=== PATIENT | male | born 1945 | race Caucasian/White ===

== ENCOUNTER 2022-10-06 20:36 | Emergency (ER) | payer BC, SELFPAY ==
--- NOTE | ~2022-10-06 | CT_ITS ---
EXAMINATION: CT HEAD WITHOUT CONTRAST CLINICAL INFORMATION: Dizziness. COMPARISON: None. TECHNIQUE: Contiguous axial imaging was performed from the skull base to vertex without intravenous administration of contrast. Coronal and sagittal reformatted images are performed at the CT scanner. [This CT examination was performed using dose optimization techniques as appropriate, variously including the following: *Automated exposure control *Adjustment of mA and/or kV according to patient size (this includes techniques or standardized protocols for targeted exams where dose is matched to indication/reason for exam; i.e. extremities or head) *Use of iterative reconstruction technique] DLP: 835 mGy-cm. FINDINGS: Focal encephalomalacia, hypodensity, consistent with old infarct in the right occipital lobe. Small lacunar infarct in left thalamus. There is no evidence of acute intracranial hemorrhage or acute change is territorial infarction. No abnormal mass-effect or midline shift is seen. Barcenas to white matter differentiation is well preserved. No extra-axial fluid collections are identified. The ventricles are normal in size. There is no abnormal attenuation within the brain parenchyma. There is no osseous abnormality. The mastoid air cells and visualized portions of the paranasal sinuses are well-aerated. CT/CT head/brain wo IV con IMPRESSION: No acute intracranial pathology.
[2022-10-06 20:45] VITALS: BP 167/67; PULSE 71; O2SAT 100
--- NOTE | 2022-10-06 20:47 | ED_ITS ---
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 Patient got up went to the bathroom while going to the bathroom felt little off balance. Back to normal now few days ago patient was going uphill felt short of breath. No shortness of breath no palpitation no chest pain today patient smokes marijuana daily ambulated ran outside to meet ambulance prior to arrival <Braulio Charles MD - Last Filed: 10/06/22 23:13> Related Data Allergies/Adverse reactions: Allergies Allergy/AdvReac Type Severity Reaction Status Date / Time No Known Allergies Allergy Verified 10/06/22 20:48 <ABI Sanchez - Last Filed: 10/06/22 20:59> Review of Systems Review of Systems: Yes all other systems are reviewed and are negative <Braulio Charles MD - Last Filed: 10/06/22 23:13> [facility] Past Medical History Medical History: Medical History CVA (cerebral vascular accident) Hypertension <ABI Sanchez - Last Filed: 10/06/22 20:59> Physical Exam Vital Signs: Vital Signs: Last Vital Signs Temp 96.8 F 10/06/22 20:51 Pulse 80 10/06/22 23:03 Resp 18 10/06/22 22:56 BP 144/76 H 10/06/22 23:03 Pulse Ox 96 10/06/22 22:56 O2 Del Method 10/06/22 22:56 BMI result Body Mass Index 29.9 <ABI Sanchez - Last Filed: 10/06/22 20:59> Vital Signs: Last Vital Signs Temp 96.8 F 10/06/22 20:51 Pulse 80 10/06/22 23:03 Resp 18 10/06/22 22:56 BP 144/76 H 10/06/22 23:03 Pulse Ox 96 10/06/22 22:56 O2 Del Method 10/06/22 22:56 BMI result Body Mass Index 29.9 <Braulio Charles MD - Last Filed: 10/06/22 23:13> Appearance: Alert. Oriented X3. No acute distress. Eyes: PERRLA, No Nystagmus ENT: Pharynx normal. Oral Mucosa moist hard of hearing Neck: Normal inspection. Neck supple. CVS: Normal heart rate and rhythm. Pulses normal. Respiratory: No respiratory distress. Equal air entry bilateral, no wheezing/rales/rhonchi Abdomen: Soft and nontender. Bowel sounds are present, no mass palpable, no CVA tenderness Skin: Skin warm and dry. Normal skin color. Normal skin turgor. Extremities: No lower extremity edema. No calf tenderness Neuro: Oriented X 3. No motor deficit. No sensory deficit.No cerebellar signs , cranial nerves II-XII intact <Braulio Charles MD - Last Filed: 10/06/22 23:13> Course Course Course Narrative: RME - 76 yo male with history of CVA on Eliquis, HTN, marijuana smoker who presents to the ER from home via EMS for evaluation of generalized weakness and dizziness that started while watching TV about an hour ago. He feels like he is having a stroke because he missed his last 4 days of Eliquis and his previous strokes presented with dizziness. EMS reports he locked his door and ran out to the ambulance. VSS. He states dizziness improved but persists. Also reports new onset MEJIA on his walk today. VSS in triage. NIH 0. No nystagmus. Will get CT head, EKG, labs, coags. Non- debilitating symptoms at this time. <ABI Sanchez - Last Filed: 10/06/22 20:59> Medical Decision Making Medical Decision Making [facility] Narrative: Patient with nonspecific dizziness no nystagmus no cerebellar signs orthostatic normal, normal EKGs patient ambulating steady gait no signs of cva at this time there is no urgent indication for further testing follow with PCP CT scan of the head was normal <Braulio Charles MD - Last Filed: 10/06/22 23:13> Lab Data [facility] Lab Attestation statement: I reviewed the patient's lab results. <Braulio Charles MD - Last Filed: 10/06/22 23:13> Result Diagrams: 10/06/22 21:12 10/06/22 21:12 <ABI Sanchez - Last Filed: 10/06/22 20:59> Labs: Lab Results 10/06/22 10/06/22 10/06/22 Range/Units 21:12 21:12 21:12 WBC 3.9 L (4.8-10.8) X10*3/uL RBC 3.72 L (4.60-5.80) X10*6/uL Hgb 9.4 L (14.0-18.0) g/dl Hct 29.1 L (42.0-52.0) % MCV 78.2 L (80.0-98.0) fL MCH 25.3 L (27.0-33.0) pg MCHC 32.3 (31.0-36.0) g/dl RDW 13.3 (11.0-16.0) % Plt Count 178 (160-400) X10*3/uL MPV 8.1 L (9.4-12.4) fL Immature Gran % (Auto) Cancelled Neut % (Auto) Cancelled Lymph % (Auto) Cancelled Donley % (Auto) Cancelled Eos % (Auto) Cancelled Baso % (Auto) Cancelled Lymph # (Auto) Cancelled Donley # (Auto) Cancelled Eos # (Auto) Cancelled Baso # (Auto) Cancelled Abs Immat Gran (auto) Cancelled Absolute Neuts (auto) Cancelled Absolute Nucleated RBC 0.000 (0.0-0.012) X10*3/uL Nucleated RBC % (auto) 0.0 (0.0-0.2) /100WBC Neutrophils % (Manual) 44 L (45-73) % Lymphocytes % (Manual) 49 H (20-40) % Monocytes % (Manual) 6 (2-11) % Eosinophils % (Manual) 1 (0-4) % Abs Neuts (Manual) 1.7 L (2.0-8.3) X10*3/uL Lymphocytes # (Manual) 1.9 (1.2-4.9) X10*3/uL Monocytes # (Manual) 0.2 (0.1-1.2) X10*3/uL Platelet Estimate NORMAL (NORMAL) Plt Morphology Comment NORMAL RBC Morphology NORMAL PT 12.3 (10.0-13.1) SEC INR 1.1 (0.9-1.1) APTT 29.5 (26.0-36.4) SEC Sodium 132 L (135-145) mmol/L Potassium 4.4 (3.3-5.1) mmol/L Chloride 102 (96-108) mmol/L Carbon Dioxide 23 (22-29) mmol/L Anion Gap 11 L (12-20) BUN 20 H (9-16) mg/dL Creatinine 0.94 (0.5-1.4) mg/dL Estim Creat Clear Calc 72.6 Estimated GFR > 60 Random Glucose 114 (60-115) mg/dL Calcium 8.3 L (8.4-10.2) mg/dL Magnesium 2.1 (1.6-2.6) mg/dL Total Bilirubin 0.4 (0.0-1.0) mg/dL Direct Bilirubin < 0.2 (0.0-0.5) mg/dL AST 19 (5-37) U/L ALT 15 (0-40) U/L Alkaline Phosphatase 59 (39-117) U/L Troponin I High Sens (<3.5-35.0) ng/L B-Natriuretic Peptide (<100) pg/mL Total Protein 6.4 L (6.5-8.0) g/dL Albumin 4.1 (3.5-5.0) g/dL 10/06/22 10/06/22 Range/Units 21:12 21:12 WBC (4.8-10.8) X10*3/uL RBC (4.60-5.80) X10*6/uL Hgb (14.0-18.0) g/dl Hct (42.0-52.0) % MCV (80.0-98.0) fL MCH (27.0-33.0) pg MCHC (31.0-36.0) g/dl RDW (11.0-16.0) % Plt Count (160-400) X10*3/uL MPV (9.4-12.4) fL Immature Gran % (Auto) Neut % (Auto) Lymph % (Auto) Donley % (Auto) Eos % (Auto) Baso % (Auto) Lymph # (Auto) Donley # (Auto) Eos # (Auto) Baso # (Auto) Abs Immat Gran (auto) Absolute Neuts (auto) Absolute Nucleated RBC (0.0-0.012) X10*3/uL Nucleated RBC % (auto) (0.0-0.2) /100WBC Neutrophils % (Manual) (45-73) % Lymphocytes % (Manual) (20-40) % Monocytes % (Manual) (2-11) % Eosinophils % (Manual) (0-4) % Abs Neuts (Manual) (2.0-8.3) X10*3/uL Lymphocytes # (Manual) (1.2-4.9) X10*3/uL Monocytes # (Manual) (0.1-1.2) X10*3/uL Platelet Estimate (NORMAL) Plt Morphology Comment RBC Morphology PT (10.0-13.1) SEC INR (0.9-1.1) APTT (26.0-36.4) SEC Sodium (135-145) mmol/L Potassium (3.3-5.1) mmol/L Chloride (96-108) mmol/L Carbon Dioxide (22-29) mmol/L Anion Gap (12-20) BUN (9-16) mg/dL Creatinine (0.5-1.4) mg/dL Estim Creat Clear Calc Estimated GFR Random Glucose (60-115) mg/dL Calcium (8.4-10.2) mg/dL Magnesium (1.6-2.6) mg/dL Total Bilirubin (0.0-1.0) mg/dL Direct Bilirubin (0.0-0.5) mg/dL AST (5-37) U/L ALT (0-40) U/L Alkaline Phosphatase (39-117) U/L Troponin I High Sens 7.9 (<3.5-35.0) ng/L B-Natriuretic Peptide 33 (<100) pg/mL Total Protein (6.5-8.0) g/dL Albumin (3.5-5.0) g/dL <ABI Sanchez - Last Filed: 10/06/22 20:59> Lab Results 10/06/22 10/06/22 10/06/22 Range/Units 21:12 21:12 21:12 WBC 3.9 L (4.8-10.8) X10*3/uL RBC 3.72 L (4.60-5.80) X10*6/uL Hgb 9.4 L (14.0-18.0) g/dl Hct 29.1 L (42.0-52.0) % MCV 78.2 L (80.0-98.0) fL MCH 25.3 L (27.0-33.0) pg MCHC 32.3 (31.0-36.0) g/dl RDW 13.3 (11.0-16.0) % Plt Count 178 (160-400) X10*3/uL MPV 8.1 L (9.4-12.4) fL Immature Gran % (Auto) Cancelled Neut % (Auto) Cancelled Lymph % (Auto) Cancelled Donley % (Auto) Cancelled Eos % (Auto) Cancelled Baso % (Auto) Cancelled Lymph # (Auto) Cancelled Donley # (Auto) Cancelled Eos # (Auto) Cancelled Baso # (Auto) Cancelled Abs Immat Gran (auto) Cancelled Absolute Neuts (auto) Cancelled Absolute Nucleated RBC 0.000 (0.0-0.012) X10*3/uL Nucleated RBC % (auto) 0.0 (0.0-0.2) /100WBC Neutrophils % (Manual) 44 L (45-73) % Lymphocytes % (Manual) 49 H (20-40) % Monocytes % (Manual) 6 (2-11) % Eosinophils % (Manual) 1 (0-4) % Abs Neuts (Manual) 1.7 L (2.0-8.3) X10*3/uL Lymphocytes # (Manual) 1.9 (1.2-4.9) X10*3/uL Monocytes # (Manual) 0.2 (0.1-1.2) X10*3/uL Platelet Estimate NORMAL (NORMAL) Plt Morphology Comment NORMAL RBC Morphology NORMAL PT 12.3 (10.0-13.1) SEC INR 1.1 (0.9-1.1) APTT 29.5 (26.0-36.4) SEC Sodium 132 L (135-145) mmol/L Potassium 4.4 (3.3-5.1) mmol/L Chloride 102 (96-108) mmol/L Carbon Dioxide 23 (22-29) mmol/L Anion Gap 11 L (12-20) BUN 20 H (9-16) mg/dL Creatinine 0.94 (0.5-1.4) mg/dL Estim Creat Clear Calc 72.6 Estimated GFR > 60 Random Glucose 114 (60-115) mg/dL Calcium 8.3 L (8.4-10.2) mg/dL Magnesium 2.1 (1.6-2.6) mg/dL Total Bilirubin 0.4 (0.0-1.0) mg/dL Direct Bilirubin < 0.2 (0.0-0.5) mg/dL AST 19 (5-37) U/L ALT 15 (0-40) U/L Alkaline Phosphatase 59 (39-117) U/L Troponin I High Sens (<3.5-35.0) ng/L B-Natriuretic Peptide (<100) pg/mL Total Protein 6.4 L (6.5-8.0) g/dL Albumin 4.1 (3.5-5.0) g/dL 10/06/22 10/06/22 Range/Units 21:12 21:12 WBC (4.8-10.8) X10*3/uL RBC (4.60-5.80) X10*6/uL Hgb (14.0-18.0) g/dl Hct (42.0-52.0) % MCV (80.0-98.0) fL MCH (27.0-33.0) pg MCHC (31.0-36.0) g/dl RDW (11.0-16.0) % Plt Count (160-400) X10*3/uL MPV (9.4-12.4) fL Immature Gran % (Auto) Neut % (Auto) Lymph % (Auto) Donley % (Auto) Eos % (Auto) Baso % (Auto) Lymph # (Auto) Donley # (Auto) Eos # (Auto) Baso # (Auto) Abs Immat Gran (auto) Absolute Neuts (auto) Absolute Nucleated RBC (0.0-0.012) X10*3/uL Nucleated RBC % (auto) (0.0-0.2) /100WBC Neutrophils % (Manual) (45-73) % Lymphocytes % (Manual) (20-40) % Monocytes % (Manual) (2-11) % Eosinophils % (Manual) (0-4) % Abs Neuts (Manual) (2.0-8.3) X10*3/uL Lymphocytes # (Manual) (1.2-4.9) X10*3/uL Monocytes # (Manual) (0.1-1.2) X10*3/uL Platelet Estimate (NORMAL) Plt Morphology Comment RBC Morphology PT (10.0-13.1) SEC INR (0.9-1.1) APTT (26.0-36.4) SEC Sodium (135-145) mmol/L Potassium (3.3-5.1) mmol/L Chloride (96-108) mmol/L Carbon Dioxide (22-29) mmol/L Anion Gap (12-20) BUN (9-16) mg/dL Creatinine (0.5-1.4) mg/dL Estim Creat Clear Calc Estimated GFR Random Glucose (60-115) mg/dL Calcium (8.4-10.2) mg/dL Magnesium (1.6-2.6) mg/dL Total Bilirubin (0.0-1.0) mg/dL Direct Bilirubin (0.0-0.5) mg/dL AST (5-37) U/L ALT (0-40) U/L Alkaline Phosphatase (39-117) U/L Troponin I High Sens 7.9 (<3.5-35.0) ng/L B-Natriuretic Peptide 33 (<100) pg/mL Total Protein (6.5-8.0) g/dL Albumin (3.5-5.0) g/dL <Braulio Charles MD - Last Filed: 10/06/22 23:13> Discharge Plan Discharge Clinical Impression: Dizziness of unknown etiology <ABI Sanchez - Last Filed: 10/06/22 20:59> Patient Disposition: Home, Self-Care <ABI Sancehz - Last Filed: 10/06/22 20:59> Instructions: Dizziness (ED) <ABI Sanchez - Last Filed: 10/06/22 20:59> Additional Instructions: Take your medications as prescribed by your PCP No signs of stroke seen your CT scan of the head is normal Follow-up with your PCP <ABI Sanchez - Last Filed: 10/06/22 20:59>
[2022-10-06 20:51] VITALS: BP 121/52; PULSE 74; RESP 16; TEMP 36; O2SAT 99; BMI 29.9
--- NOTE | 2022-10-06 20:52 | ECG_ITS ---
Test Reason : DIZZNIESS Blood Pressure : / mmHG Vent. Rate : 063 BPM Atrial Rate : 063 BPM P-R Int : 154 ms QRS Dur : 088 ms QT Int : 414 ms P-R-T Axes : 028 -33 043 degrees QTc Int : 423 ms Normal sinus rhythm Left axis deviation Borderline ECG No previous ECGs available Referred By: Minnie Long Electronically Signed By:HANNAH HOLLINGSWORTH
[2022-10-06 21:19] LABS: Hematocrit 29.1 % (42.0-52.0); Hemoglobin 9.4 g/dl (14.0-18.0); Mean Corpuscular HGB Conc 32.3 g/dl (31.0-36.0); Mean Corpuscular Hemoglobin 25.3 pg (27.0-33.0); Mean Corpuscular Volume 78.2 fL (80.0-98.0); Mean Platelet Volume 8.1 fL (9.4-12.4); Platelet Count 178 X10*3/uL (160-400); Red Blood Count 3.72 X10*6/uL (4.60-5.80); Red Cell Distribution Width 13.3 % (11.0-16.0); White Blood Count 3.9 X10*3/uL (4.8-10.8)
[2022-10-06 21:26] LABS: INTERNATIONAL NORM RATIO 1.1 (0.9-1.1); Prothrombin Time 12.3 SEC (10.0-13.1)
[2022-10-06 21:28] LABS: Partial Thromboplastin Time 29.5 SEC (26.0-36.4)
[2022-10-06 21:45] LABS: Alanine Aminotransferase 15 U/L (0-40); Albumin Level 4.1 g/dL (3.5-5.0); Alkaline Phosphatase 59 U/L (39-117); Anion Gap 11 (12-20); Aspartate Amino Transferase 19 U/L (5-37); Bilirubin Direct < 0.2 mg/dL (0.0-0.5); Bilirubin Total 0.4 mg/dL (0.0-1.0); Blood Urea Nitrogen 20 mg/dL (9-16); Calcium 8.3 mg/dL (8.4-10.2); Carbon Dioxide 23 mmol/L (22-29); Chloride 102 mmol/L (96-108); Creatinine Clr Calc Pharmacy 72.6; Estimated Glomerular Filt Rate > 60; Glucose Random 114 mg/dL (60-115); Magnesium 2.1 mg/dL (1.6-2.6); Potassium 4.4 mmol/L (3.3-5.1); Sodium 132 mmol/L (135-145); Total Protein 6.4 g/dL (6.5-8.0)
[2022-10-06 21:50] LABS: B Type Natriuretic Peptide 33 pg/mL (<100); Troponin-I High Sensitivity 7.9 ng/L (<3.5-35.0)
[2022-10-06 21:51] LABS: Eosinophils Percent Manual 1 % (0-4); Lymphocytes Absolute Manual 1.9 X10*3/uL (1.2-4.9); Lymphocytes Percent Manual 49 % (20-40); Monocytes Absolute Manual 0.2 X10*3/uL (0.1-1.2); Monocytes Percent Manual 6 % (2-11); Neutrophils Percent Manual 44 % (45-73); Platelet Estimate NORMAL (NORMAL); Platelet Morphology Comment NORMAL; RBC Morphology NORMAL
[2022-10-06 21:52] LABS: Neutrophils Absolute Manual 1.7 X10*3/uL (2.0-8.3)
--- NOTE | 2022-10-06 22:45 | PC.NURSE ---
reports slight MEJIA this am then dizziness which began around 8:30 pm. Had to hold onto things similar sx to stroke 10 years ago. currently. axox3, clear speech, skin pwd. no unilat neuro deficits.
--- NOTE | 2022-10-06 22:51 | PC.NURSE ---
pt is on eloquis. denies head trauma and headache. son at bedside. nsr on monitor.
[2022-10-06 22:56] VITALS: BP 135/73; PULSE 75; RESP 18; O2SAT 96
[2022-10-06 23:00] VITALS: BP 124/66; PULSE 62
[2022-10-06 23:01] VITALS: BP 130/72; PULSE 75
[2022-10-06 23:03] VITALS: BP 144/76; PULSE 80
== END 2022-10-07 00:14 | disposition home or self-care (01) ==
PROVIDERS: Physician Assistant; Emergency Provider Internal Medicine
DX: R42 Dizziness and giddiness (principal); R53.1 Weakness; R06.02 Shortness of breath; F12.90 Cannabis use, unspecified, uncomplicated; Z79.01 Long term (current) use of anticoagulants; Z79.899 Other long term (current) drug therapy
CPT/HCPCS: 36415; 70450; 80048; 80076; 83735; 83880; 84484; 85007; 85027; 85610; 85730; 93005; 99284

== ENCOUNTER 2024-09-29 23:51 | Emergency (ER) | payer BC, SELFPAY ==
[2024-09-29 23:51] VITALS: BP 163/82; PULSE 99; RESP 16; TEMP 36.6; O2SAT 97; BMI 30.7
[2024-09-30 00:19] LABS: MANUAL DIFF FLAG NO
[2024-09-30 00:20] LABS: Basophils Percent Auto 0.2 % (0-2); Eosinophils Percent Auto 0.7 % (0-4); Hematocrit 33.6 % (42.0-52.0); Hemoglobin 11.6 g/dl (14.0-18.0); Imm Gran Abs Auto 0.04 X10*3/uL (0.00-0.03); Lymphocytes Absolute Auto 1.9 X10*3/uL (1.2-4.9); Lymphocytes Percent Auto 45.6 % (20-40); Mean Corpuscular HGB Conc 34.5 g/dl (31.0-36.0); Mean Corpuscular Hemoglobin 29.8 pg (27.0-33.0); Mean Corpuscular Volume 86.4 fL (80.0-98.0); Mean Platelet Volume 9.4 fL (9.4-12.4); Monocytes Absolute Auto 0.5 X10*3/uL (0.1-1.2); Monocytes Percent Auto 10.9 % (2-11); Neutrophils Absolute Auto 1.8 x10*3/uL (2.0-8.3); Neutrophils Percent Auto 41.6 % (45-73); Platelet Count 130 X10*3/uL (160-400); Red Blood Count 3.89 X10*6/uL (4.60-5.80); Red Cell Distribution Width 13.9 % (11.0-16.0); White Blood Count 4.2 X10*3/uL (4.8-10.8)
[2024-09-30 00:30] LABS: INTERNATIONAL NORM RATIO 1.1 (0.9-1.1); Prothrombin Time 12.6 SEC (10.9-12.4)
[2024-09-30 00:37] LABS: Alanine Aminotransferase 17 U/L (0-40); Alkaline Phosphatase 63 U/L (39-117); Anion Gap 17 (12-20); Aspartate Amino Transferase 31 U/L (5-37); Bilirubin Total 0.4 mg/dL (0.0-1.0); Blood Urea Nitrogen 19 mg/dL (9-16); Calcium 8.5 mg/dL (8.4-10.2); Carbon Dioxide 20 mmol/L (22-29); Chloride 107 mmol/L (96-108); Creatinine Clr Calc Pharmacy 88.2; Estimated Glomerular Filt Rate > 60; Glucose Random 107 mg/dL (60-115); Potassium 3.9 mmol/L (3.3-5.1); Sodium 140 mmol/L (135-145)
--- NOTE | 2024-09-30 00:58 | ED_ITS ---
HPI - General Adult General Chief complaint: General Medical Stated complaint: weakness Time Seen by Provider: 09/30/24 00:22 Source: patient Mode of arrival: ambulatory Limitations: no limitations History of Present Illness ED Provider: HPI narrative: Patient is 78 years old with history of liver cancer getting chemotherapy also does have history of AFib on Pradaxa for last 3 days no slight ecchymosis rash in the lower extremity especially when he lays down and feets hanging on the recliner no black stools no bleeding from any other place Related Data Allergies Allergy/AdvReac Type Severity Reaction Status Date / Time No Known Allergies Allergy Verified 09/30/24 00:00 Review of Systems 2 Review of Systems: Yes all other systems are reviewed and are negative [facility] Past Medical History Medical History Hypertension CVA (cerebral vascular accident) Social History Social History Advance Directives: No Do you have a plan to hurt others: No Plan Physical Exam ED Vital Signs: Vital Signs - 24 hr 09/29/24 23:51 Temperature 97.9 F Pulse Rate 99 Respiratory Rate 16 Blood Pressure 163/82 H Pulse Oximetry 97 Oxygen Delivery Method Room Air BMI result Body Mass Index 30.7 Appearance: Alert. Oriented X3. No acute distress. Eyes: PERRLA, No Nystagmus ENT: Pharynx normal. Oral Mucosa moist Neck: Normal inspection. Neck supple. CVS: Normal heart rate and rhythm. Pulses normal. Respiratory: No respiratory distress. Equal air entry bilateral, no wheezing/rales/rhonchi Abdomen: Soft and nontender. Bowel sounds are present, no mass palpable, no CVA tenderness Skin: Skin warm and dry. Normal skin color. Normal skin turgor. No petechiae ox no ecchymosis seen at this time Extremities: No lower extremity edema. No calf tenderness Neuro: Oriented X 3. Medical Decision Making Medical Decision Making [facility] Narrative: No bruises seen at this time likely when he has a pressure from the recliner causing the bruising because his platelet comes have decreased from 170 k to [id number] now patient is advised to keep an eye on platelet counts and follow with his on PCP Lab Data [facility] Lab Attestation statement: I reviewed the patient's lab results. 09/30/24 00:12 09/30/24 00:12 Labs: Lab Results 09/30/24 Range/Units 00:12 WBC 4.2 L (4.8-10.8) X10*3/uL RBC 3.89 L (4.60-5.80) X10*6/uL Hgb 11.6 L D (14.0-18.0) g/dl Hct 33.6 L (42.0-52.0) % MCV 86.4 (80.0-98.0) fL MCH 29.8 (27.0-33.0) pg MCHC 34.5 (31.0-36.0) g/dl RDW 13.9 (11.0-16.0) % Plt Count 130 L D (160-400) X10*3/uL MPV 9.4 (9.4-12.4) fL Immature Gran % (Auto) 1.0 H (0.0-0.4) % Neut % (Auto) 41.6 L (45-73) % Lymph % (Auto) 45.6 H (20-40) % Rooks % (Auto) 10.9 (2-11) % Eos % (Auto) 0.7 (0-4) % Baso % (Auto) 0.2 (0-2) % Lymph # (Auto) 1.9 (1.2-4.9) X10*3/uL Rooks # (Auto) 0.5 (0.1-1.2) X10*3/uL Eos # (Auto) 0.0 (0.0-0.4) X10*3/uL Baso # (Auto) 0.0 (0.0-0.2) X10*3/uL Abs Immat Gran (auto) 0.04 H (0.00-0.03) X10*3/uL Absolute Neuts (auto) 1.8 L (2.0-8.3) x10*3/uL Absolute Nucleated RBC 0.000 (0.0-0.012) X10*3/uL Nucleated RBC % (auto) 0.0 (0.0-0.2) /100WBC PT 12.6 H (10.9-12.4) SEC INR 1.1 (0.9-1.1) Sodium 140 (135-145) mmol/L Potassium 3.9 (3.3-5.1) mmol/L Chloride 107 (96-108) mmol/L Carbon Dioxide 20 L (22-29) mmol/L Anion Gap 17 (12-20) BUN 19 H (9-16) mg/dL Creatinine 0.78 (0.5-1.4) mg/dL Estim Creat Clear Calc 88.2 Estimated GFR > 60 Random Glucose 107 (60-115) mg/dL Calcium 8.5 (8.4-10.2) mg/dL Total Bilirubin 0.4 (0.0-1.0) mg/dL AST 31 (5-37) U/L ALT 17 (0-40) U/L Alkaline Phosphatase 63 (39-117) U/L Total Protein 7.0 (6.5-8.0) g/dL Albumin 4.0 (3.5-5.0) g/dL Discharge Plan Discharge Clinical Impression: Ecchymosis Patient Disposition: Home, Self-Care Instructions: Ecchymosis (ED) Additional Instructions: Your ecchymosis likely from low platelet counts along with you are taking Pradaxa Follow up with your oncologist on Tuesday about rechecking platelet counts before chemotherapy Use pillow under the feet to keep off the pressure area Print Language: Sinhala
[2024-09-30 01:01] VITALS: BP 163/82; PULSE 99; RESP 16; TEMP 36.6; O2SAT 97
== END 2024-09-30 01:01 | disposition home or self-care (01) ==
PROVIDERS: Emergency Provider Internal Medicine; PCP Internal Medicine Nephrology
DX: R21 Rash and other nonspecific skin eruption (principal); R53.1 Weakness; I48.91 Unspecified atrial fibrillation; Z79.899 Other long term (current) drug therapy; Z79.01 Long term (current) use of anticoagulants
CPT/HCPCS: 36415; 80053; 85025; 85610; 99282; 99283

== ENCOUNTER 2024-12-19 05:40 | Inpatient (IN) | payer MEDICARE, BC, SELFPAY ==
[2024-12-19] VITALS (9 sets, daily range): BP systolic 136–168; BP diastolic 71–90; PULSE 91–114; RESP 16–18; TEMP 36.2–37; O2SAT 95–98; BMI 27.1
--- NOTE | 2024-12-19 | ECG_ITS ---
Test Reason : CHECK PROLONGED QT Blood Pressure : */* mmHG Vent. Rate : 101 BPM Atrial Rate : 101 BPM P-R Int : 138 ms QRS Dur : 88 ms QT Int : 358 ms P-R-T Axes : 3 -43 39 degrees QTcB Int : 464 ms Sinus tachycardia Left axis deviation Abnormal ECG When compared with ECG of 06-Oct-2022 21:03, Vent. rate has increased by 38 bpm Referred By: Cintia Horton Electronically Signed By: HANNAH HOLLINGSWORTH
--- NOTE | ~2024-12-19 | XR_ITS ---
CLINICAL HISTORY: abdominal pain --- Additional Notes or Special Instructions: constipation, CRC 1 view abdomen Comparison: Findings: Normal bowel gas pattern. Normal stool quantity. No abnormal calcifications. No obvious pneumoperitoneum or pneumatosis. No acute fractures Impression: Normal bowel gas pattern This document has been electronically signed by: Dusty Brody MD on 12/23/2024 15:09:33
--- NOTE | 2024-12-19 06:03 | MHC.EDTECH ---
pt changed over on arrival by this tech and security. all [facility]
--- OUTSIDE RECORDS SUMMARY | 2024-12-19 06:36 | XMS_ITS | Data Portability ---
Author Organization [facility], , [employer] Address [address] [place] [address] [place] [address] Assessment No assessment recorded. Plan of Treatment Reminders Order Date Submit Date Provider Last Modified By Organization Details Last Modified Time Details Appointments None recorded. Lab PSA, serum or plasma [address], [address] [place] [address], [place] [address], [place], [address], Ph [phone] 0 10:31:34 CMP, serum or plasma 2019 020 [facility], [address] [place] [address], [place] [address], [place], [address], Ph [phone] 0 06:25:15 CBC w/ auto diff [address], [address] [place] [address], [place] [address], [place], [address], Ph [phone] 0 10:31:34 lipid panel, serum [address], [address] [place] [address], [place], [address], Ph [phone] 0 10:31:34 PT/INR 2018 019 [facility], [address] [place] [address], [place], [address], Ph [phone] 9 15:45:28 Referral None recorded. Procedures None recorded. Surgeries None recorded. Imaging None recorded. Medication Orders simvastati n 40 mg tablet 2019 020 INTERFACE [facility][id number], [address] [place], [id number], 0 18:14:51 lisinopril 10 mg tablet 2019 020 [email or web address] [facility] #[id number], [address] [place], [id number], 0 13:12:14 Patient TargetsNo targets recorded. Patient InstructionsNo instructions recorded. Reason for Referral None Reported. Results Created Date Observation Date Name Description Value Unit Range Abnormal Flag Note LastModifiedBy Organization Detail LastModifiedTime 06/04/2006/04/2019 PT/IN R Prothrombin 28.6 Not Available [address] [address], [place], [address], Ph [phone] 06/04/2019 11:41:38 06/25/20 19 06/25/2019 coagu chek xs/IN R waive d INR 3.9 0.9-1. 1 above high normal Not Available [address] [address], [place], [address], Ph [phone] 06/25/2019 13:06:52 06/25/20 19 06/25/2019 coagu chek xs/IN R waive d prothrombin time 47.1 sec Diffe rence s in reage nts, instr ument s, and pre-a nalyt ical varia bles can affec t proth rombi n time resul ts. These facto rs shoul d be consi dered when nova ring diffe rent proth rombi n time test metho ds. Pleas e Note: This test shoul d not be used to monit or perso ns on hepar in thera py. Not Available [address] [address], [place], [address], Ph [phone] 06/25/2019 13:06:52 06/25/20 19 06/25/2019 PT/IN R Prothrombin 47.1 Not Available [address] [address], [place], [address], Ph [phone] 06/25/2019 11:11:04 05/06/2005/07/2020 CBC with diffe renti al/pl atele t WBC 4.8 K/uL 3.2-10 .6 Not Available Cordelia Chacko MD [address] [place] [address], [address], 05/08/2020 06:25:15 05/06/2005/07/2020 CBC with diffe renti al/pl atele t RBC 4.89 M/uL 3.98-5 .98 Not Available Cordelia Chacko MD [address] [place] [address], [address], 05/08/2020 06:25:15 05/06/2005/07/2020 CBC with diffe renti al/pl atele t hemoglobin 14.8 g/dL 12.5-1 8.0 Not Available Cordelia Chacko MD [address] [place] [address], [address], 05/08/2020 06:25:15 05/06/2005/07/2020 CBC with diffe renti al/pl atele t hematocrit 44.0 % 36.9-5 2.1 Not Available Cordelia Chacko MD [address] [place] [address], [address], 05/08/2020 06:25:15 05/06/2005/07/2020 CBC with diffe renti al/pl atele t MCV 90.0 fL 80.6-9 7.6 Not Available Cordelia Chacko MD [address] [place] [address], [address], 05/08/2020 06:25:15 05/06/2005/07/2020 CBC with diffe renti al/pl atele t MCH 30.3 pg 27.3-3 3.7 Not Available Cordelia Chacko MD [address] [place] [address], [address], 05/08/2020 06:25:15 05/06/20 20 05/07/2020 CBC with diffe renti al/pl atele t MCHC 33.6 g/dL 33.4-3 5.3 Not Available Cordelia Chacko MD [address] [place] [address], [address], 05/08/2020 06:25:15 05/06/2005/07/2020 CBC with diffe renti al/pl atele t RDW 12.9 % 12.5-1 5.3 Not Available Cordelia Chacko MD [address] [place] [address], [address], 05/08/2020 06:25:15 05/06/2005/07/2020 CBC with diffe renti al/pl atele t platelets 245 K/uL 140-44 0 Not Available Cordelia Chacko MD [address] [place] [address], [address], 05/08/2020 06:25:15 05/06/20 20 05/07/2020 CBC with diffe renti al/pl atele t neutrophils 46.9 % 41.0-8 1.0 Not Available Cordelia Chacko MD [address] [place] [address], [address], 05/08/2020 06:25:15 05/06/2005/07/2020 CBC with diffe renti al/pl atele t lymphs 40.6 % 11.0-4 4.0 Not Available Cordelia Chacko MD [address] [place] [address], [address], 05/08/2020 06:25:15 05/06/2005/07/2020 CBC with diffe renti al/pl atele t monocytes 7.7 % 4.0-11 .0 Not Available Cordelia Chacko MD [address] [place] [address], [address], 05/08/2020 06:25:15 05/06/2005/07/2020 CBC with diffe renti al/pl atele t eos 0.4 % 0.0-6. 0 Not Available Cordelia Chacko MD [address] [place] [address], [address], 05/08/2020 06:25:15 05/06/20 20 05/07/2020 CBC with diffe renti al/pl atele t basos 0.4 % 0.0-1. 0 Not Available Cordelia Chacko MD [address] [place] [address], [address], 05/08/2020 06:25:15 05/06/2005/07/2020 CBC with diffe renti al/pl atele t neutrophils (absolute) 2.24 K/uL 1.80-6 .80 Not Available Cordelia Chacko MD [address] [place] [address], [address], 05/08/2020 06:25:15 05/06/2005/07/2020 CBC with diffe renti al/pl atele t lymphs (absolute) 1.9 K/uL 1.0-3. 0 Not Available Cordelia Chacko MD [address] [place] [address], [address], 05/08/2020 06:25:15 05/06/2005/07/2020 CBC with diffe renti al/pl atele t monocytes(ab solute) 0.4 K/uL 0.2-1. 0 Not Available Cordelia Chacko MD [address] [place] [address], [address], 05/08/2020 06:25:15 05/06/2005/07/2020 CBC with diffe renti al/pl atele t eos (absolute) 0.0 K/uL 0.0-0. 4 Not Available Cordelia Chacko MD [address] [place] [address], [address], 05/08/2020 06:25:15 05/06/2005/07/2020 CBC with diffe renti al/pl atele t baso (absolute) 0.0 K/uL 0.0-0. 1 Not Available Cordelia Chacko MD [address] [place] [address], [address], 05/08/2020 06:25:15 05/06/20 20 05/07/2020 CBC with diffe renti al/pl atele t immature granulocytes 4.0 % 0.2-0. 9 above high normal Not Available Cordelia Chacko MD [address] [place] [address], [address], 05/08/2020 06:25:15 05/06/20 20 05/07/2020 CBC with diffe renti al/pl atele t immature grans (abs) 0.19 K/uL 0.00-0 .10 above high normal Not Available Cordelia Chacko MD [address] [place] [address], [address], 05/08/2020 06:25:15 05/06/20 20 05/07/2020 CBC with diffe renti al/pl atele t NRBC 0 /100W BC Not Available Cordelia Chacko MD [address] [place] [address], 118[address], 05/08/2020 06:25:15 05/06/20 20 05/07/2020 CBC with diffe renti al/pl atele t hematology comments: Commen t RDW SD 42.0 fl N MEAN PLATE LET VOLUM E 9.2 fL 6.2-9 .8 N Not Available Cordelia Chacko MD [address] [place] [address], [address], 05/08/2020 06:25:15 05/06/20 20 05/07/2020 CMP, serum or plasm a glucose 92 mg/dL 70-110 Not Available Cordelia Chacko MD [address] [place] [address], [address], 05/08/2020 06:25:15 05/06/20 20 05/07/2020 CMP, serum or plasm a BUN 18 mg/dL 9- Not Available Cordelia Chacko MD [address] [place] [address], [address], 05/08/2020 06:25:15 05/06/20 20 05/07/2020 CMP, serum or plasm a creatinine 0.90 mg/dL 0.60-1 .30 Not Available Cordelia Chacko MD [address] [place], [address], 05/08/2020 06:25:15 05/06/20 20 05/07/2020 CMP, serum or plasm a eGFR if nonafricn AM 82.04 mL/mi n GFR calcu latio n is only for patie nts with chron ic renal insuf ficie ncy. Units of measu re are ml/mi n/1.7 3 m2. [place] ge GFR for healt hy adult s is >60 ml/mi n/1.7 3 m2 Chron ic kidne y disea se if GFR is 15-60 ml/mi n/1.7 3 m2 Kidne y failu re if GFR is <15 ml/mi n/1.7 3 m2 MDRD calcu latio n used. Refer to http: //www .nkde p.nih .gov/ healt hprof essio nals/ index .htm Not Available Cordelia Chacko MD [address] [place], [address], 05/08/2020 06:25:15 05/06/20 20 05/07/2020 CMP, serum or plasm a eGFR if africn AM 105.51 mL/mi n GFR calcu latio n is only for patie nts with chron ic renal insuf ficie ncy. Units of measu re are ml/mi n/1.7 3 m2. [place] ge GFR for healt hy adult s is >60 ml/mi n/1.7 3 m2 Chron ic kidne y disea se if GFR is 15-60 ml/mi n/1.7 3 m2 Kidne y failu re if GFR is <15 ml/mi n/1.7 3 m2 MDRD calcu latio n used. Refer to http: //www .nkde p.nih .gov/ healt hprof essio nals/ index .htm Not Available Cordelia Chacko MD [address] [place] [address], [address], 05/08/2020 06:25:15 05/06/20 20 05/07/2020 CMP, serum or plasm a BUN/creatini ne ratio 20.0 ratio 7.0-24 .0 Not Available Cordelia Chacko MD [address] [place] [address], 17607, 05/08/2020 06:25:15 05/06/20 20 05/07/2020 CMP, serum or plasm a sodium 134 mmol/ L 133-14 6 Not Available Cordelia Chacko MD [address] [place] [address], [address], 05/08/2020 06:25:15 05/06/2005/07/2020 CMP, serum or plasm a potassium 4.6 mmol/ L 3.5-5. 1 Not Available Cordelia Chacko MD [address] [place] [address], [address], 05/08/2020 06:25:15 05/06/2005/07/2020 CMP, serum or plasm a chloride 104 mmol/ L 98-107 Not Available Cordelia Chacko MD [address] [place] [address], [place], [address], 05/08/2020 06:25:15 05/06/2005/07/2020 CMP, serum or plasm a carbon dioxide, total 24 mmol/ L 21-32 Not Available Cordelia Chacko MD [address] [place] [address], 27[address], 05/08/2020 06:25:15 05/06/2005/07/2020 CMP, serum or plasm a calcium 9.5 mg/dL 8.8-10 .6 Not Available Cordelia Chacko MD [address] [place] [address], 99[address], 05/08/2020 06:25:15 05/06/2005/07/2020 CMP, serum or plasm a protein, total 7.2 g/dL 6.4-8. 2 Not Available Cordelia Chacko MD [address] [place] [address], 599[address], 05/08/2020 06:25:15 05/06/2005/07/2020 CMP, serum or plasm a albumin 4.5 g/dL 3.4-5. 0 Not Available Cordelia Chacko MD [address] [place] [address], 93383, 05/08/2020 06:25:15 05/06/20 20 05/07/2020 CMP, serum or plasm a globulin, total 2.7 g/dL 1.8-3. 5 Not Available Cordelia Chacko MD [address] [place] [address], 28459, 05/08/2020 06:25:15 05/06/2005/07/2020 CMP, serum or plasm a A/G ratio 1.7 Not Available Cordelia Chacko MD [address] [place] [address], 07662, 05/08/2020 06:25:15 05/06/2005/07/2020 CMP, serum or plasm a bilirubin, total 0.6 mg/dL 0.1-1. 2 Not Available Cordelia Chacko MD [address] [place] [address], 148[address], 05/08/2020 06:25:15 05/06/2005/07/2020 CMP, serum or plasm a alkaline phosphatase 62 U/L 50-136 Not Available Lucy Chacko MD [address] [place] [address], [address], 05/08/2020 06:25:15 05/06/2005/07/2020 CMP, serum or plasm a AST (SGOT) 17 U/L 8-41 Not Available Cordelia Chacko MD [address] [place] [address], 75[address], 05/08/2020 06:25:15 05/06/2005/07/2020 CMP, serum or plasm a ALT (SGPT) 19 U/L 10-56 Not Available Cordelia Chacko MD [address] [place] [address], 8[address], 05/08/2020 06:25:15 05/06/20 20 05/07/2020 lipid panel cholesterol, total 148 mg/dL 25-200 Not Available Cordelia Chacko MD [address] [place] [address], 78[address], 05/08/2020 06:25:16 05/06/20 20 05/07/2020 lipid panel triglyceride s 146 mg/dL <150 Not Available Cordelia Chacko MD [address] [place] [address], [address], 05/08/2020 06:25:16 05/06/20 20 05/07/2020 lipid panel HDL cholesterol 44 mg/dL 40-60 Male patie nts: No risk >55 mg/dL Moder ate risk = 40-55 mg/dL High risk <40 mg/dL Femal e patie nts: No risk >65 mg/dL Moder ate risk = 45-65 mg/dL High risk <45 mg/dL Natio nal Leida stero l Educa tion Progr am (NCEP Guide lines : <40mg /dL = low HDL leida stero l (giulia r risk of CHD) >60 mg/dL = high HDL leida stero l (nega tive risk facto r for CHD) Not Available Cordelia Chacko MD [address] [place] [address], 80[address], 05/08/2020 06:25:16 05/06/20 20 05/07/2020 lipid panel VLDL cholesterol homer 29.2 mg/dL 2-30 Not Available Cordelia Chacko MD [address] [place] [address], 629[address], 05/08/2020 06:25:16 05/06/20 20 05/07/2020 lipid panel LDL chol calc (nih) 75 mg/dL 0-130 Adult s: Rimma able LDL <130 mg/dl Borde rline LDL = 130-1 60 mg/dl High Risk LDL >160 mg/dl Child sharri <19 Years of Age: Rimma able LDL <110 mg/dl Elias pierce LDL = 110-1 30 mg/dl High Risk LDL >130 mg/dl Not Available Cordelia Chacko MD [address] [place], [address], 05/08/2020 06:25:16 05/06/20 20 05/07/2020 prost ate-s pecif ic Ag, serum prostate specific Ag, serum 1.640 NG/mL 0.000- 4.000 [facility]. Not Available [facility] [address] [facility] [place] [address], [place], [address], 05/08/2020 06:25:17 Result Notes None recorded. Problems Name Problem SNOMED Code Status Onset Date Resolution Date Notes Provider Name and Address Organization Details Recorded Time Chronic sinusiti s 05211254 Active 2012 Relation : Self Not e: 03/16/20 16 I suspect this along with eustacia n tube dysfunct ion causes intermit tent dizzines s. his most notable 2 episodes have occurred in february, 2012 and 2015. advised fluticas one nasal and might consider using it every summer suspect chronic sinus congesti on vs eustachi an tube dysfunct ion. did not respond to abx for sinusiti s/otitis . will refer to ent for further eval Not Available [facility] 8 11:44:31 Dizzines s and giddines s 349937687 Active 2012 Relation : Self Not e: 02/29/20 13 non specific . labs, ct head, cxr wnl. suspect inner ear problem. 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 has PFO. on lifelong warfarin . 08/04/20 12 no recurren ce. continue asa 81mg and risk factor manageme nt Not Available [facility] 8 11:44:31 Benign essentia l hyperten benigno 2470895 Active 2015 Relation : Self Not e: on lisinopr il Not Available [facility] 8 11:44:31 Shoulder joint pain 151366607 Active 2013 Relation : Self Not e: dx impingem ent but not margaret g. will refer back to dr santos Not Available [facility] 8 11:44:31 Vitamin B deficien cy 83734424 Active 2013 Relation : Self Not e: level 187. now on oral replacem ent 2 mg daily Not Available [facility] 8 11:44:31 Ostium secundum type atrial septal defect 722956789 Active 2015 Relation : Self Not Available [facility] 8 11:44:32 Long-ter m current use of anticoag ulant 936734299 Completed 201512/02/2020 Relation : Self Bulmaro Bryant MD [address], [place], [address] , [facility], 1 11:12:48 Dysfunct ion of eustachi an tube 36580465 Active 2015 Relation : Self Not e: has chronic problems , sinus symptoms and known dev septum, turbinat e hypertro phy. 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 embolic from pfo. remains on lifelong anticoag ulation. Not Available [facility] 8 11:44:32 Glaucoma 32137811 Active 2015 Relation : Self Not Available [facility] 8 11:44:32 Hyperten sive disorder 25385625 Completed 201505/12/2020 Relation : Self Not e: on lisinopr il Bulmaro Bryant MD [address], [place], [address] , [facility], 0 00:28:31 Strain of rotator cuff capsule Active 2018 Bulmaro Bryant MD [address], [place], [address] , [facility], 9 16:33:31 Hyperlip idemia 84462272 Active 2019 Bulmaro Bryant MD [address], [place], [address] [place] [address] , [facility], 0 00:29:01 Screenin g for malignan t neoplasm of prostate Active 2019 Bulmaro Bryant MD [address], [place], [address] [place] [address] , [facility], 0 00:29:05 Patent foramen ovale 004006533 Active 2020 Bulmaro Bryant MD [address], [place], [address] [place] [address] , [facility], 1 15:21:41 Constipa tion 37202463 Active 2020 Bulmaro Bryant MD [address], [place], [address] [place] [address] , [facility], 1 15:21:42 Skin sensatio n disturba nce 65045378 Active 2020 Bulmaro Bryant MD [address], [place], [address] [place] [address] , [facility], 1 15:03:54 Abrasion 985724329 Active 2020 Bulmaro Bryant MD [address], [place], [address] [place] [address] , [facility], 1 15:04:55 Problem Notes None recorded. Medical Equipment None Reported. Allergies Allergen ID Allergen Name Allergen Category Reaction Reaction Severity Criticality Documentation Date Start Date Code Code System Note Provider Name and Address Organization Details Recorded Time [address]281 No Allergy Informati on Available Not available Not available Not available Not available 10/31/20172013 67921 K Comme nt: User: orquidea; Not Available [facility] 8 11:22:03 No known drug allergies Medications Name Sig Start Date Stop Date Status Note LastModified by Organization Details LastModified Time latanoprost 0.005 % eye drops INSTILL 1 DROP INTO BOTH EYES ONCE AT BEDTIME active Not Available Not Available No t Available trazodone 50 mg tablet TAKE 1 TABLET BY MOUTH EVERY DAY AT BEDTIME active Not Available Not Available No t Available lisinopril 20 mg tablet TAKE 1 TABLET BY MOUTH EVERY DAY active Not Available Not Available No t Available fluorouraci l 5 % topical cream 06/25 completed Not Available Not Available Not Available triamcinolo ne acetonide 0.1 % topical cream active Not Available Not Available Not Available simvastatin 40 mg tablet TAKE 1 TABLET BY MOUTH EVERY NIGHT AT BEDTIME active Not Available Not Available No t Available amoxicillin 875 mg tablet Take 1 tablet twice a day by oral route for 10 days. 03/12 completed Not Available Not Available Not Available lisinopril 10 mg tablet TAKE 1 TABLET BY MOUTH DAILY active Not Available Not Available No t Available warfarin 5 mg tablet TAKE 1 AND 1/2 TABLET BY MOUTH EVERY DAY DIRECTED 06/03 completed Not Available Not Available Not Available hydrocortis one 2.5 % topical cream 06/25 completed Not Available Not Available Not Available methylpredn isolone 4 mg tablets in a dose pack 03/12 completed Not Available Not Available Not Available ketoconazol e 2 % topical cream 03/12 completed Not Available Not Available Not Available clobetasol 0.05 % scalp solution active Not Available Not Available Not Available Travatan Z 0.004 % eye drops active Not Available Not Available Not Available Combigan 0.2 %-0.5 % eye drops active Not Available Not Available No t Available doxepin 3 mg tablet TAKE 1 TABLET BY MOUTH EVERY DAY AT BEDTIME active Not Available Not Available No t Available Eliquis 5 mg tablet TAKE 1 TABLET BY MOUTH TWICE DAILY DIRECTED active Not Available Not Available No t Available Shingrix (PF) 50 mcg/0.5 mL intramuscul ar suspension, kit active Not Available Not Available Not Available Fluzone High-Dose (PF) 180 mcg/0.5 mL intramuscul ar syringe 06/25 completed Not Available Not Available Not Available Inveltys 1 % eye drops,suspe nsion active Not Available Not Available Not Available Vitals Date Recorded Body height Systolic blood pressure Diastolic blood pressure Provider Name and Address Organization Details Last Updated DateTime 06/25/2019 177.8 cm 138 mm[Hg] 78 mm[Hg] Ashlie Del Toro [facility], 06/25/2019 11:07:40 Date Recorded Body height Body mass index (BMI) Body weight Systolic blood pressure Diastolic blood pressure Provider Name and Address Organization Details Last Updated DateTime 05/06/2020 177.8 cm 29.8 kg/m2 07162.21 g 148 mm[Hg] 78 mm[Hg] Bulmaro Bryant MD [address], [place], [address], [facility], 0 18:01:27 Date Recorded Body height Body mass index (BMI) Body weight Systolic blood pressure Diastolic blood pressure Provider Name and Address Organization Details Last Updated DateTime 06/03/2020 177.8 cm 29.8 kg/m2 11937.21 g 128 mm[Hg] 78 mm[Hg] Ercika Moraless [facility], 0 11:26:49 Date Recorded Body height Body mass index (BMI) Body weight Systolic blood pressure Diastolic blood pressure Provider Name and Address Organization Details Last Updated DateTime 12/02/2020 177.8 cm 30.1 kg/m2 22932.4 g 120 mm[Hg] 72 mm[Hg] Marita Bajwalashonda [facility], 1 11:00:16 Date Recorded Body height Body mass index (BMI) Body weight Systolic blood pressure Diastolic blood pressure Provider Name and Address Organization Details Last Updated DateTime 01/26/2021 177.8 cm 28.8 kg/m2 13686.07 g 110 mm[Hg] 70 mm[Hg] Marita Bajwalashonda [facility], 1 13:35:57 Social History Question Answer Notes LastModified by Organizat ion Details LastModified Time Tobacco Smoking Status Former Smoker Smoked 7 years, quit in the 70's Bulmaro Bryant MD [address], [place], [address], [facility] 05/06/2020 17:33:11 Are You A Current Smoker? No ahinchey Information not available 12/02/2020 Sex: Unknown Functional Status None recorded. Mental Status None recorded. Family History Nothing Reported Notes:Brother: Diabetes Anne Marie itus, Type II, CVA Father: Stroke, DVT Mother: Healthy Family Members Medical History No medical history recorded. Immunizations Vaccine Type Date Status Note Provider Nam e and Address Organization Details Recorded Time pneumococcal conjugate PCV 7 4 completed Marita Stanley [facility], [facility] 12/02/2020 10:58:20 Pneumococcal conjugate PCV 13 7 completed Bulmaro Bryant MD [address], [place], [address], [facility] 05/06/2020 17:32:10 Influenza, high-dose, trivalent, PF 8 completed Marita lopez, [facility] 12/02/2020 10:58:20 Influenza, high-dose, trivalent, PF 9 completed Not Available [facility] 09/01/2019 02:13:16 Influenza, split virus, quadrivalent, PF 0 completed Thalia Holcomb [facility], [facility], 06/03/2020 12:03:58 Past Encounters Encounter ID Performer Location Encounter Start Date Encounter Closed Date Diagnosis/Indication Diagnosis SNOMED-CT Code Diagnosis ICD10 Code Diagnosis Note [id number] ABI Lemus [facility] [address] [place] [address] 11/01/2017 10:13:03 11/01/2017 10:54:39 Cerebrovascular accident 642360680 I63.9 Long-term current use of anticoagulant 029669321 Z79.01 [id number] ABI MONTEIR[facility] [address] [place] [address] 11/25/2017 10:11:19 11/25/2017 12:21:11 Eustachian tube disorder 71835030 H69.92 Last 2days Lt ear has had loud crackle noise heard, but not felt with jaw movement. Denies ear pain, plugging, pressure/f ullness, discharge, ringing or incr hearing loss. Overall is much improved today. Feels his Lt TM crepitus is worse but had recent unremarkab le dental exam per pt. Hx Rt ETD, stable and always assoc with URI, that resolves with antiibioti cs. Last saw ENT 2-3yrs ago for hearing loss, ETD treated with Flonase. Denies headache or neck pain. Hx old Rt occipital ischemic stroke per MRI 10/08/17 with some residual ataxia. PMH incl: chronic sinustis, PFO.Recomm end re-start otc Fluticason e per Sinusitis handout issuedbut no Ibuprofen, otc Debrox/Cer umenex. If worsens, consider ENT. [id number] ABI Lemus [address] [place] [address] 1 12/13/2017 10:02:58 12/13/2017 10:34:24 Cerebrovascular accident [id number] I63.9 Discussed A/P with Dr. Bryant. Long-term current use of anticoagulant 079008960 Z79.01 [id number] [place] [address] [place] [address],[address] [place] [id number] 1 01/24/2018 10:06:36 01/24/2018 10:33:50 Cerebrovascular accident [id number] I63.9 Discussed A/P with Dr. Bryant. Long-term current use of anticoagulant 351811697 Z79.01 [id number] [place] [address] [place], [place] [address]i te [address] [place] [address] 02/22/2018 13:45:29 02/22/2018 14:37:46 Actinic keratosis 176718177 L57.0 likely AK left forehead. refer to derm for this and complete skin check Pain of ri ght shoulder joint [id number] 2442531 M25.511 suspect impingemen t/calc tendonitis . most likely pt will want a quick fix like cortisone injection [id number] Bulmaro Bryant MD [facility] [address] [place] [address] 03/13/2018 10:58:40 03/13/2018 14:26:37 Impacted cerumen in right ear [id number] 768003 H61.21 disimpacte d by irrigation today w/o complicati ons. i dont' see any e/o infection Otalgia 53408361 H92.01 Cerebral i nfarction due to embolism of cerebral arteries 714337541 I63.40 inr 2.8. same dose coumadin. repeat inr in 6 wks Ostium sec undum type atrial septal defect 028572686 Q21.1 [id number] ALEX LEE NP [facility] [address] [place], [place] [address]Rad[address] [place] [address] 04/25/2018 10:14:06 04/25/2018 10:42:10 Cerebrovascular accident [id number] I63.9 Discussed A/P with Dr. Bryant. Long-term current use of anticoagulant 177956550 Z79.01 [id number] ALEX LEE NP [facility] [address] [place], [place] [address]Rad[address] [place] [address] 05/03/2018 15:07:57 05/03/2018 16:16:44 Cerebrovascular accident [id number] I63.9 Discussed A/P with Dr. Bryant. Long-term current use of anticoagulant 061032599 Z79.01 [id number] ALEX LEE NP [facility] [address] [place], [place] [address]Rad[address] [place] [address] 05/17/2018 15:18:40 05/17/2018 15:47:13 Cerebrovascular accident [id number] I63.9 Discussed A/P with Dr. Bryant. Long-term current use of anticoagulant 174775280 Z79.01 [id number] ALEX LEE NP UP [address] [place] [address] 06/07/2018 15:21:36 06/07/2018 16:05:20 Cerebrovascular accident 508530628 I63.9 Discussed A/P with Dr. Bryant. Long-term current use of anticoagulant 981765536 Z79.01 Dysfunctio n of eustachian tube 81851842 H68.001 We discussed that he will need to repeat INR in 2 weeks due to abx use [id number] ALEX LEE, [facility] [address] [facility],[address] [place] [address] 06/20/2018 10:17:22 06/20/2018 11:01:03 Cerebrovascular accident [id number] I63.9 Discussed A/P with Dr. Bryant. Long-term current use of anticoagulant 357695142 Z79.01 [id number] ALEX LEE, SASHA UP [address] [place] [address] 07/12/2018 15:13:35 07/12/2018 16:11:41 Cerebrovascular accident [id number] I63.9 Discussed A/P with Dr. Bryant. Long-term current use of anticoagulant 992341350 Z79.01 [id number] ALEX LEE, SASHA [facility] [address] [place] [address] 08/29/2018 15:24:06 08/29/2018 15:42:49 Cerebrovascular accident [id number] I63.9 Discussed A/P with Dr. Bryant. Long-term current use of anticoagulant 513948923 Z79.01 [id number] ALEX LEE, SASHA UP [address] [place] [address] 10/10/2018 10:16:28 10/10/2018 11:43:54 Cerebrovascular accident [id number] I63.9 Discussed A/P with Dr. Bryant. Long-term current use of anticoagulant 047758098 Z79.01 [id number] ALEXARSLAN LEE, [facility] [address] [facility],[address] [place] [address] 10/31/2018 10:11:25 10/31/2018 10:52:27 Cerebrovascular accident [id number] I63.9 Discussed A/P with Dr. Bryant. Long-term current use of anticoagulant 072061201 Z79.01 [id number] ALEX LEE NP [address] [place] [address] 11/07/2018 10:16:25 11/07/2018 10:48:03 Cerebrovascular accident [id number] I63.9 Discussed A/P with Dr. Bryant. Long-term current use of anticoagulant 867920262 Z79.01 [id number] Bulmaro Bryant MD [address] [place] [address] 11/29/2018 12:30:51 11/29/2018 13:10:42 Strain of rotator cuff capsule 46061819 S46.011A mild strain but improved to near baseline. no further interventi on needed. prior surgery and never found PT useful before [id number] ALEX LEE NP [address] [place] [address] 12/19/2018 10:09:23 12/19/2018 10:51:56 Cerebrovascular accident [id number] I63.9 Discussed A/P with Dr. Bryant. Long-term current use of anticoagulant 133482082 Z79.01 [id number] ALEX LEE NP [address] [place] [address] 01/30/2019 10:13:16 01/30/2019 11:50:57 Cerebrovascular accident [id number] I63.9 Discussed A/P with Dr. Bryant. Hold dose tomorrow and half tab only the next day Long-term current use of anticoagulant 126796260 Z79.01 [id number] ALEX LEE NP [address] [place] [address] 02/05/2019 10:26:07 02/05/2019 12:57:58 Cerebrovascular accident [id number] I63.9 Discussed A/P with Dr. Bryant. Long-term current use of anticoagulant 094667972 Z79.01 [id number] ABI Joseph UP [address] [place] [address] 03/05/2019 10:49:01 03/05/2019 11:23:32 Cerebrovascular accident 391531235 I63.9 Discussed A/P with Dr. Bryant.Denies altered dosing and decreased vegetable intake. INR elevated at 4.5. Withhold dose tomorrow 03/06 and 1/2 tablet 03/07.Wants to find a new CC clinic as he lives in [facility]. Long-term current use of anticoagulant 853279338 Z79.01 [id number] ABI Joseph [address] [place] [address] 03/12/2019 11:02:54 03/12/2019 11:40:15 Cerebrovascular accident [id number] I63.9 Discussed A/P with Dr. Carvalho.INR normal at 2.1. Resume 57.5mg/wk. f/u in 1-2 weeks at most. pt will be gone on vacation and will schedule a close appt. Wants to find a new CC clinic as he lives in [facility]. We informed him about [facility] but pt did not call as he does not want to switch even though he complains every visit about the distance. Does not want to switch from Dr. Bryant. We discussed that a closer coumadin clinic would just manage his INR/warfar in dose and he would continue with Dr. Bryant. I offered for us to call [facility] to obtain informatio n/schedule but pt refused. Long-term current use of anticoagulant 833981761 Z79.01 [id number] ABI Joseph [address] [place] [address] 03/28/2019 14:43:42 03/28/2019 15:12:15 Cerebrovascular accident 136594071 I63.9 Discussed A/P with Dr. Bryant.INR elevated at 4.3. Hold dose tomorrow and half tab only the next day. f/u in 1 week. Wants to find a new CC clinic as he lives in [facility], does not have appt scheduled. We informed him about [facility] but pt did not call as he does not want to switch even though he complains every visit about the distance. Does not want to switch from Dr. Bryant. We discussed that a closer coumadin clinic would just manage his INR/warfar in dose and he would continue with Dr. Bryant. I offered for us to call [facility] to obtain informatio n/schedule but pt refused.En couraged pt to sign medical release forms to new clinic. Long-term current use of anticoagulant 844790598 Z79.01 [id number] ABI Joseph [place] [address] [place] [address] 04/09/2019 10:51:04 04/09/2019 11:23:39 Cerebrovascular accident [id number] I63.9 Discussed A/P with Dr. Bryant.INR low at 1.2. Take 10mg tomorrow morning only. f/u no later than 04/19/19. Wants to find a new CC clinic as he lives in [facility], does not have appt scheduled. We informed him about [facility] but pt did not call as he does not want to switch even though he complains every visit about the distance. Does not want to switch from Dr. Bryant. We discussed that a closer coumadin clinic would just manage his INR/warfar in dose and he would continue with Dr. Bryant. I offered for us to call [facility] to obtain informatio n/schedule but pt refused.En couraged pt to sign medical release forms to new clinic. Long-term current use of anticoagulant 305664453 Z79.01 [id number] ABI Joseph [address] [place] [address] 04/18/2019 15:04:44 04/18/2019 15:25:30 Cerebrovascular accident [id number] I63.9 Discussed A/P with Dr. Bryant.INR at 3.4, continue 57.5mg/wk. I asked patient if he takes 1.5 tabs of 7.5mg on wednesdays and saturdays and patient says he does not know. He goes off of written instructio ns many months ago. I asked for him to clarify dosing at next visit. Wants to find a new CC clinic as he lives in [facility], does not have appt scheduled. We informed him about [facility] but pt did not call as he does not want to switch even though he complains every visit about the distance. Does not want to switch from Dr. Bryant. We discussed that a closer coumadin clinic would just manage his INR/warfar in dose and he would continue with Dr. Bryant. I offered for us to call [facility] to obtain informatio n/schedule but pt refused.En couraged pt to sign medical release forms to new clinic. Long-term current use of anticoagulant 340222948 Z79.01 [id number] [place] [address] [place] [address],[address] [place] [address] 04/30/2019 13:01:31 04/30/2019 16:22:48 Imaging of lung abnormal 378210633 R91.8 Assessment and plan discussed with Dr. Kathleen serra reviewed old records and summarized : 5 CT A/P w/o contrast: peripheral somewhat rounded pleural-ba sed opacificat ion in right posterior costophren ic sulcus with some swirling of adjacent vessels. CTPA: consolidat ion of right lung base.12/21 CXR: 5.8cm peripheral wedge shaped or pleural based opacity in the right posterior lower lung.12/13 CT A/P w/o contrast: right pleural effusion and RLL consolidat ion Concerning for chronic abnormalit y, malignancy not excluded. Acute h/o PEs, will do chest CT w/wo for further evaluation . Further w/u contingent on results. [id number] ABI Joseph UP [address] [place] [address] 05/14/2019 10:46:12 05/14/2019 11:07:44 Cerebrovascular accident [id number] I63.9 Discussed A/P with Dr. Bryant.INR at 3.7, 2.5mg tomorrow morning only and then continue 57.5mg/wk. f/u no later 3 weeks. Wants to find a new CC clinic as he lives in [facility], does not have appt scheduled. We informed him about [facility] but pt did not call as he does not want to switch even though he complains every visit about the distance. Does not want to switch from Dr. Bryant. We discussed that a closer coumadin clinic would just manage his INR/warfar in dose and he would continue with Dr. Bryant. I offered for us to call [facility] to obtain informatio n/schedule but pt refused.En couraged pt to sign medical release forms to new clinic. Long-term current use of anticoagulant 445784514 Z79.01 [id number] ABI Joseph UP [address] [place] [address] 06/04/2019 10:55:38 06/04/2019 11:49:42 Cerebrovascular accident 893107006 I63.9 Discussed A/P with Dr. Bryant.INR normal at 2.4, continue 57.5mg/wk. f/u 3 weeks. Wants to find a new CC clinic as he lives in [facility], does not have appt scheduled. We informed him about [facility] but pt did not call as he does not want to switch even though he complains every visit about the distance. Does not want to switch from Dr. Bryant. We discussed that a closer coumadin clinic would just manage his INR/warfar in dose and he would continue with Dr. Bryant. I offered for us to call [facility] to obtain informatio n/schedule but pt refused.En couraged pt to sign medical release forms to new clinic. Okay to switch to factor Xa inhibitor but pt has not yet contacted insurance. Long-term current use of anticoagulant 739524415 Z79.01 Active or passive immunization 527336077 Z23 [id number] ABI Joseph [facility] [address] [place] [address] 06/25/2019 10:45:55 06/25/2019 11:39:08 Cerebrovascular accident [id number] I63.9 Discussed A/P with Dr. Bryant.INR elevated at 3.9, already took morning dose before appt, take 2.5mg tomorrow only. f/u 1 weeks. Wants to find a new CC clinic as he lives in [facility], does not have appt scheduled. We informed him about [facility] but pt did not call as he does not want to switch even though he complains every visit about the distance. Does not want to switch from Dr. Bryant. We discussed that a closer coumadin clinic would just manage his INR/warfar in dose and he would continue with Dr. Bryant. I offered for us to call [facility] to obtain informatio n/schedule but pt refused.En couraged pt to sign medical release forms to new clinic. Okay to switch to factor Xa inhibitor but pt has not yet contacted insurance. Advised patient to see if anything is new in his routine (multivita min, Vit C, doubled up doses). Long-term current use of anticoagulant 966248095 Z79.01 Active or passive immunization 697709243 Z23 [id number] Bulmaro Bryant MD [address] [place] [address] 05/06/2020 17:28:51 05/06/2020 18:16:49 Benign essential hypertension 3929757 I10 elevated to 148/78. on lisinopril 10mg qd. 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 same dose coumadin. repeat inr in 6 wks Glaucoma 37670449 H40.9 Vitamin B deficiency 479 [address]11 E53.9 Adult heal th examination 371949392 Z00.01 [id number] Bulmaro Bryant MD [address] [place] [address] 06/03/2020 11:18:46 06/03/2020 12:09:49 Administration of influenza vaccine 17310888 Z23 Benign ess ential hypertension 3610009 I10 at goal with ^lisinopri l to 20mg qd [id number] Bulmaro Bryant MD [address] [place] [address] 12/02/2020 10:52:27 12/02/2020 12:57:32 Benign essential hypertension 5571521 I10 at goal with ^lisinopri l to 20mg qd Cerebral i nfarction due to embolism of cerebral arteries 675776712 I63.40 on doac Glaucoma 85237604 H40.9 continued f/u with ophtho Hyperlipidemia 07951514 E78.5 on simvastati n 40mg qd Constipation 34977392 K5 9.00 - rec colace, more water Patent foramen ovale 204 006665 Q21.1 - with history of embolic stroke. on eliquis Vitamin B deficiency 479 46203 E53.9 on oral b12 Dysfunctio n of eustachian tube 33524154 H69.93 tends to get fullness in ears but none currently [id number] Bulmaro Bryant MD [facility] [address] [place] [address] 01/26/2021 13:29:42 01/26/2021 15:27:21 Benign essential hypertension 6377593 I10 at goal with ^lisinopri l to 20mg qd Cerebral i nfarction due to embolism of cerebral arteries 015659888 I63.40 on doac Glaucoma 71670669 H40.9 continued f/u with ophtho Hyperlipidemia 39611912 E78.5 on simvastati n 40mg qd Constipation 78067047 K5 9.00 - rec colace, more water Patent foramen ovale 204 709767 Q21.1 - with history of embolic stroke. on eliquis Vitamin B deficiency 479 44553 E53.9 on oral b12 Dysfunctio n of eustachian tube 20971092 H69.93 tends to get fullness in ears but none currently Skin sensa tion disturbance 61795108 R20.9 - feels cold easily. doubtful anything new here. may be related to reduced activity but has hasnt been anemic. no recent thyroid check but his symptoms are chronic and has had normal tsh previously . pt declined repeat blood work acknowledg ing low yield. mainly wanted reassuranc e Abrasion 427277844 T14.8 XXA healing well. keep wound clean Health Concerns Section Related Observation LastModified by Organization Detai ls LastModified Time None Recorded Concern Status LastModified by Organization Details LastModified Time None Recorded Advance Directives Directive None Recorded Payers Encounter Date Sequence Insurance Name Policy Number Policy Wood Covered Member ID Wood Member ID Guarantor Name 06/25/2019 1 [facility] [employer] - FEP (PPO) 104 MarioA lberto Cortes [id number] Mario Alberto Cortes 05/06/2020 1 [employer] [employer] - F[employer] (PPO) 104 Mario Alberto Sophia [id number] Mario Alberto Cortes 06/03/2020 1 [employer] [employer] - [employer] (PPO) 104 Mario Alberto Sophia [id number] Mario Alberto Cortes 12/02/2020 1 [employer] [employer] - [employer] (PPO) 104 Mario Alberto Sophia [id number] Mario Alberto Cortes 01/26/2021 1 [facility] [employer] - FEP (PPO) 104 Mario Alberto Sophia [id number] Mario Alberto Cortes Notes Date Note Type Note Provider Name and Address Organization Details Recorded Time 06/25/2019 text/html Since your last visit have you had any of the following? Rectal Bleeding: No Hematuria: No Epistaxis: No Gum Bleeds: No Black Stools: No Excessive Bruising: No Pt's INR fluctuates. Pt denies missing, doubling up, new medications, consuming less/more vegetables than usual, EtOH. He states that I have increased his weekly dose. Looking back at his coumadin flow sheet, he has been at 57.5mg/wk since January. Okay to switch to factor Xa inhibitor but pt has not yet contacted insurance. rohit lopez, [facility], 06/25/2019 11:30:14 05/06/2020 text/html - here for yearl y physical- was seeing pcp at [facility] closer to where he lives down but thinks he will come back here.- in interim changed from warfarin to eliquis. has had recurrent PE/VTE and also 2 prior embolic strokes first one aug 2014 from pfo. did hypercoag w/u and negative including neg for APAS- going to move to [facility] in a year where son lives if covid dies down - 148/78 on lisinopril 10mg qd. has bp cuff but hasnt been checking readings.non fasting Bulmaro Bryant MD [address], [place], [address], [facility] 05/13/2020 00:29:34 06/03/2020 text/html - seen last mo a nd bp high and increased his lisinopril from 10 to 20mg qd. has been monitoring for awhile and got normal readings so stopped checking.- would like to lose weight but needs to reduce his intake in between meals.- could cut back on coffee cake and cheese which he has too much of. - had 1/2 shingrix- dieudonne with shalini shot- multiple grandparents had strokes in their 60 and 70s but mom and mat grandmother lasted almost to 100 yo. Bulmaro Bryant MD [address], [place], [address], [facility], 06/03/2020 16:18:31 12/02/2020 text/html - 6mo f/u on h/o stroke, htn, hyperlipidemia, pfo- last couple days more constipated than usual. bowel movement comes out hard initially. water intake could be better.- wt stable at 210. not walking but will get back into it now that the weather in nice- on eliquis. no bleeding or bruising- no chest pain, sob- got covid vaccination 2/2- stopped playing in [employer] given pandemic. getting ready to move to [facility] this summer where kids live and likely give up the trombone.- multiple grandparents had strokes in their 60 and 70s but mom and mat grandmother lasted almost to 100 yo. Bulmaro Bryant MD [address], [place], [address], [facility] 12/02/2020 15:22:20 01/26/2021 text/html - always feels c old but admittedly long standing problem since his 40s. over time has become more sensitive and notes that he has progressively upped the thermostat in his house.- asking if it could be low iron or thyroid- had normal cbc with normal mcv apr 2020. no thyroid checked probably in 2-3 hrs but had it checked previouly- skinned his r knee. early eschar formation - starting to exercise and has already lost weight - bought a eyetok and likely moving to [place] in october prior note:6mo f/u on h/o stroke, htn, hyperlipidemia, pfo- last couple days more constipated than usual. bowel movement comes out hard initially. water intake could be better.- wt stable at 210. not walking but will get back into it now that the weather in nice- on eliquis. 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 getting ready to move to [facility] this summer where kids live and likely give up the trombone.- multiple grandparents had strokes in their 60 and 70s but mom and mat grandmother lasted almost to 100 yo. Bulmaro Bryant MD [address], [place], [address], [facility], 01/26/2021 15:05:09
--- NOTE | 2024-12-19 07:12 | ED.GENADULT ---
HPI - General Adult General Chief complaint: Psychiatric Symptoms Stated complaint: SI ATTEMPT BILATERAL WRISTS Time Seen by Provider: 12/19/24 07:11 History of Present Illness ED Provider: Dr. Horton HPI narrative: 79 y/o M patient; H liver cancer followed by [facility], Atrial fibrillation, HTN, hx CVA; presents via EMS from home with report of suicidal ideation and attempt. The patient states he has recently been experiencing abdominal pain. He is becoming depressed over how this pain keeps occurring. He states everytime he eats he gets constipated. His abdomen becomes distended and he has severe pain until he can have a bowel movement. He went to the emergency department at [facility] three times over the last 1.5 weeks and was upset that his symptoms are still occurring. Overnight he cut his bilateral wrists in the bathtub with a knife. His is uncertain if his tetanus is up to date. He denies taking any medication he has not been prescribed. He denies homicidal ideation. He has been referred by his Oncologist Dr. Faith Bonilla to the GI service but had not yet scheduled an appointment with them. Related Data Home Medications ?Medication ?Instructions ?Recorded ?Confirmed brimonidine 0.2 %-timolol 0.5 % 1 drp ophthalmic (eye) BID 12/19/24 12/19/24 eye drops docusate sodium 100 mg capsule 100 mg PO BID 12/19/24 12/19/24 enoxaparin 100 mg/mL subcutaneous 90 mg subcut Q12H 12/19/24 12/19/24 syringe ferrous gluconate 324 mg (38 mg 324 mg PO Q48H 12/19/24 12/19/24 iron) tablet hydrocortisone 2.5 % topical cream 1 appl [place] BID 12/19/24 12/19/24 with perineal applicator (Procto-Med HC) lisinopril 5 mg tablet 5 mg PO DAILY 12/19/24 12/19/24 loteprednol etabonate 0.5 % eye See Rx Instructions .Route .COMPLEX 12/19/24 12/19/24 ointment (Lotemax) metoprolol tartrate 25 mg tablet 25 mg PO BID 12/19/24 12/19/24 pantoprazole 40 mg tablet,delayed 40 mg PO DAILY@0630 12/19/24 12/19/24 release polyethylene glycol 3350 17 gram 17 g PO DAILY 12/19/24 12/19/24 oral powder packet (Miralax) prochlorperazine maleate 5 mg 5 - 10 mg PO Q6H PRN Nausea 12/19/24 12/19/24 tablet (Compazine) simvastatin 40 mg tablet 40 mg PO DAILY 12/19/24 12/19/24 trifluridine 15 mg-tipiracil 6.14 1 tab PO BID 12/19/24 12/19/24 mg tablet (Lonsurf) Allergies Allergy/AdvReac Type Severity Reaction Status Date / Time No Known Allergies Allergy Verified 12/19/24 06:08 Review of Systems Review of Systems: Yes all other systems are reviewed and are negative [facility] Past Medical History Attestation statement: The following information was validated with the patient. Source: old records reviewed Medical History Hypertension CVA (cerebral vascular accident) Social History Social History Household Members: None Housing: Condominium Do you presently have visiting nurse or other home services: No Patient Tobacco Use Status: Former Tobacco user Tobacco use type: Cigarette Smoked in Last 30 Days: No Use of substances other than those prescribed or required for medical reasons: Yes Substance Use Type: Marijuana Substance Use Frequency: Daily Last Used Substance: Just Prior to Admission Currently Displaying Signs/Symptoms of Drug Intoxication Withdrawal: No Any prior treatment program specific to substance use: No Have you been hit, kicked, punched, or otherwise hurt by someone within the past year? If so, by whom?: No Do you feel safe in your current relationship?: No Current Relationship Is there a partner from a previous relationship who is making you feel unsafe now?: No Are you made to feel afraid or neglected: No Advance Directives: No Advance Directives Information Provided: Yes Do you have a plan to hurt others: No Plan Recently lost weight without trying: Unsure Eating poorly because of decreased appetite: Yes Poor oral hygiene: No Physical Exam ED Vital Signs: Vital Signs - 24 hr 12/20/24 03:24 Temperature 97.6 F Pulse Rate 74 Respiratory Rate 16 Blood Pressure 147/82 H Pulse Oximetry 98 Oxygen Delivery Method Room Air BMI result Body Mass Index 27.1 Patient is afebrile, tachycardic, normotensive. Const General: cooperative Orientation/consciousness: patient oriented x3 HENMT Head: Yes normal to inspection and Yes atraumatic Eyes General: appearance normal, both eyes and all related structures Pupils: Equal, round and reactive pupils present EOM: EOMs intact bilaterally Neck Neck: Yes normal visual inspection, Yes full ROM, Yes supple and No tender Chest Chest palpation & inspection: normal inspection of the chest and normal palpation of entire chest wall Resp Effort & Inspection: normal respiratory effort, able to speak in complete sentences, no cough and no respiratory distress Auscultation: clear to auscultation bilaterally Cardio Rate: regular rate Rhythm: regular rhythm Peripheral pulses: Peripheral pulses 2+ throughout GI Inspection: Yes normal to inspection, No Abdominal wall edema and No distended Palpation (GI): Soft to palpation, not firm, nontender, no guarding and not rigid Auscultation: normal bowel sounds Back/Spine/Pelvis Back: No back tenderness Skin Other: Superficial lacerations to bilateral wrists Neuro General: patient oriented x3 Cranial nerves: Yes Equal, round and reactive pupils present Course Course Course Narrative: Patient is afebrile, tachycardic, mildly hypertensive. I will assess for medical causes of his abdominal pain. I will also try to reach out to his oncology team and obtain his records from [facility]. Labs reviewed. No significant leukocytosis. Mild baseline anemia and thrombocytopenia. Patient's bilateral wrist superficial lacerations were cleaned with NS and had fresh dressings applied. Patient placed on section 12. Reevaluation(s) Reevaluation #1: I spoke with the patient's oncologist. 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 He had previously completed a 1 year course of chemotherapy. He has since had progression to the ascending colon. He is pending starting a 3rd line chemotherapy oral agent. He last had a CT scan on 12/06/2024. He last had a colonoscopy on 07/2024. His oncologist otherwise reports at their last visit the patient had questions regarding assisted suicide. Patient evaluated by care team. He will be an inpatient bed search. Care of patient will transitioned to next emergency provider. Condition: Stable Time: 16:57 Reevaluation #2: ANTOINETTE SLATER MD I took over care of this patient who is pending inpatient level of care psychiatric placement for suicidal ideation. slit wrist this morning. No acute medical issues We will continue to monitor signed out t Reevaluation #3: Time: 06:43 Date: 12/20/24 Provider: Brant Nguyễn MD Continue physician observation: Patient was been in the emergency department for 25 hours. Patient in physician observation for psychiatric evaluation.? patient was seen yesterday by the care team and patient meets criteria for IPLOC and will be a geriatric bed search. No acute events reported overnight. No current complaints. VS Revealed slight elevation of the blood pressure, we will continue to monitor..? Patient will remain in the emergency department Behavioral Health Unit until disposition can be determined or until patient's symptoms improve over time. Additional Reevaluation(s): Time: 17:58 Date: 12/20/24 Provider: Belem Cleary DO Physician observation ended at 558pm Patient to be admitted as inpatient to psychiatry. Medications Administered Generic Name Dose Route Start Last Admin Trade Name Freq PRN Reason Stop Dose Admin Atorvastatin Calcium 20 mg 12/19/24 16:30 12/20/24 09:02 Atorvastatin Calcium 20 Mg Tablet PO 20 mg DAILY MAGGY Administration Brimonidine Tartrate 1 drop 12/19/24 21:00 12/20/24 21:00 Brimonidine Tartrate 0.2% Oph 5 Ml Bottle EYE-BOTH 1 drop BID MAGGY Administration Docusate Sodium 100 mg 12/19/24 21:00 12/20/24 20:54 Docusate Sodium 100 Mg Capsule PO 100 mg BID MAGGY Administration Enoxaparin Sodium 90 mg 12/20/24 07:00 12/20/24 20:55 Enoxaparin Sodium 100 Mg/Ml Syringe SUBCUT 90 mg Q12H MAGGY Administration Ferrous Sulfate 324 mg 12/20/24 09:00 12/20/24 09:02 Ferrous Sulfate 324 Mg Tablet. PO 324 mg Q48H MAGGY Administration Hydrocortisone 1 appl 12/19/24 21:00 12/20/24 21:00 Hydrocortisone 2.5 % Rectal Cr 30 Gm Tube [place] Not Given BID MAGGY Lisinopril 5 mg 12/19/24 16:00 12/20/24 09:02 Lisinopril 5 Mg Tablet PO 5 mg DAILY MAGGY Administration Protocol Metoprolol Tartrate 25 mg 12/19/24 21:00 12/20/24 20:53 Metoprolol Tartrate 25 Mg Tablet PO 25 mg BID MAGGY Administration Protocol Omeprazole 20 mg 12/19/24 16:30 12/20/24 06:10 Omeprazole 20 Mg Capsule.Dr PO 20 mg DAILY@0630 MAGGY Administration Polyethylene Glycol 17 gm 12/19/24 16:00 12/20/24 09:02 Polyethylene Glycol 3350 17 Gm Powd.Pack PO 17 gm DAILY MAGGY Administration Timolol Maleate 1 drop 12/19/24 21:00 12/20/24 20:55 Timolol Maleate 0.5 % Oph Stephanie 5 Ml Drbtl EYE-BOTH 1 drop BID MAGGY Administration Discontinued Medications Generic Name Dose Route Start Last Admin Trade Name Freq PRN Reason Stop Dose Admin Diphtheria/Tetanus/Acell Pertussis 0.5 ml 12/19/24 07:15 12/19/24 08:54 Diphth,Pertus(Acell),Tet Adult 0.5 Ml Syringe IM 12/19/24 07:16 0.5 ml .ONCE ONE Administration Enoxaparin Sodium 90 mg 12/19/24 16:00 12/19/24 17:35 Enoxaparin Sodium 100 Mg/Ml Syringe SUBCUT 90 mg Q12H MAGGY Administration Ibuprofen 400 mg 12/20/24 03:23 12/20/24 03:24 Ibuprofen 400 Mg Tablet PO 12/20/24 03:24 400 mg ONCE ONE Administration Ibuprofen 400 mg 12/20/24 10:56 12/20/24 11:18 Ibuprofen 400 Mg Tablet PO 12/20/24 10:57 400 mg ONCE ONE Administration Ibuprofen 400 mg 12/20/24 20:39 12/20/24 20:53 Ibuprofen 400 Mg Tablet PO 12/20/24 20:40 400 mg ONCE ONE Administration Medical Decision Making Differential Diagnosis Differential Diagnoses: The differential diagnosis associated with the presentation includes Admission/Observation Consideration of admission/observation: Escalation of care including admission/observation considered Consult Healthcare Provider Management of the patient was discussed with: Behavioral Health Provider Lab Data MDM Lab Attestation statement: I reviewed the patient's lab results. 12/20/24 15:03 12/19/24 07:16 Labs: Lab Results 12/19/24 12/19/24 12/19/24 Range/Units 07:15 07:16 15:10 WBC 4.9 (4.8-10.8) X10*3/uL RBC 3.60 L (4.60-5.80) X10*6/uL Hgb 10.2 L (14.0-18.0) g/dl Hct 31.4 L (42.0-52.0) % MCV 87.2 (80.0-98.0) fL MCH 28.3 (27.0-33.0) pg MCHC 32.5 (31.0-36.0) g/dl RDW 14.9 (11.0-16.0) % Plt Count 126 L (160-400) X10*3/uL MPV 9.0 L (9.4-12.4) fL Immature Gran % (Auto) Cancelled Neut % (Auto) Cancelled Lymph % (Auto) Cancelled [place] % (Auto) Cancelled Eos % (Auto) Cancelled Baso % (Auto) Cancelled Lymph # (Auto) Cancelled [place] # (Auto) Cancelled Eos # (Auto) Cancelled Baso # (Auto) Cancelled Abs Immat Gran (auto) Cancelled Absolute Neuts (auto) Cancelled Absolute Nucleated RBC 0.000 (0.0-0.012) X10*3/uL Nucleated RBC % (auto) 0.0 (0.0-0.2) /100WBC Neutrophils % (Manual) 68 (45-73) % Band Neutrophils % 2 L (3-5) % Lymphocytes % (Manual) 13 L (20-40) % Atypical Lymphs % (Man) 1 (0-6) % Monocytes % (Manual) 13 H (2-11) % Eosinophils % (Manual) 2 (0-4) % Basophils % (Manual) 1 (0-2) % Abs Neuts (Manual) 3.4 (2.0-8.3) X10*3/uL Lymphocytes # (Manual) 0.6 L (1.2-4.9) X10*3/uL Monocytes # (Manual) 0.6 (0.1-1.2) X10*3/uL Eosinophils # (Manual) 0.1 (0.0-0.4) X10*3/uL Platelet Estimate SLIGHTLY DECREASED (NORMAL) Plt Morphology Comment NORMAL RBC Morphology NOTED Polychromasia 1+ (0-2) /OIF Tear Drop Cells 1+ (0-2) /OIF PT (10.9-12.4) SEC INR (0.9-1.1) APTT (26.0-36.8) SEC Sodium 138 (135-145) mmol/L Potassium 3.9 (3.3-5.1) mmol/L Chloride 103 (96-108) mmol/L Carbon Dioxide 24 (22-29) mmol/L Anion Gap 15 (12-20) BUN 19 H (9-16) mg/dL Creatinine 0.68 (0.5-1.4) mg/dL Estim Creat Clear Calc 87.9 Estimated GFR > 60 Random Glucose 100 (60-115) mg/dL Calcium 8.7 (8.4-10.2) mg/dL Total Bilirubin 0.4 (0.0-1.0) mg/dL AST 37 (5-37) U/L ALT 20 (0-40) U/L Alkaline Phosphatase 67 (39-117) U/L Total Protein 6.7 (6.5-8.0) g/dL Albumin 3.9 (3.5-5.0) g/dL Lipase 17 (8-78) U/L Urine Color Yellow Urine Appearance Clear Urine pH 6.5 (5.0-9.0) Ur Specific [place] >= 1.030 H (1.005-1.025) Urine Protein 30 (1+) H (Neg-Trace) mg/dL Urine Glucose (UA) Negative (Negative) mg/dL Urine Ketones >=160 (Negative) mg/dL Urine Blood Negative (Negative) Urine Nitrite Negative (Negative) Ur Leukocyte Esterase Negative (Negative) Urine RBC 0-2 (0-2) /HPF Urine WBC 0-5 (0-5) /HPF Ur Squamous Epith Cells 0-2 (0-2) /HPF Urine Bacteria None Seen (None Seen) Hyaline Casts 6-10 (0-2) /LPF Salicylates < 5.0 L (15-30) mg/dL Urine Opiates Screen Not Detected (Not Detect) Ur Buprenorphine Scrn Not Detected (Not Detect) ng/mL Ur Oxycodone Screen Not Detected (Not Detect) ng/mL Urine Methadone Screen Not Detected (Not Detect) ng/mL Urine Fentanyl Screen Not Detected (Not Detect) Acetaminophen < 3 (<30) mcg/mL Ur Barbiturates Screen Not Detected (Not Detect) Ur Phencyclidine Scrn Not Detected (Not Detect) Ur Amphetamines Screen Not Detected (Not Detect) U Benzodiazepines Scrn Not Detected (Not Detect) Urine Cocaine Screen Not Detected (Not Detect) U Marijuana (THC) Screen POSITIVE H (Not Detect) Ethyl Alcohol < 10 mg/dL 12/19/24 Range/Units 16:38 WBC 4.3 L (4.8-10.8) X10*3/uL RBC 3.31 L (4.60-5.80) X10*6/uL Hgb 9.4 L (14.0-18.0) g/dl Hct 28.1 L (42.0-52.0) % MCV 84.9 (80.0-98.0) fL MCH 28.4 (27.0-33.0) pg MCHC 33.5 (31.0-36.0) g/dl RDW 15.0 (11.0-16.0) % Plt Count 158 L D (160-400) X10*3/uL MPV 9.4 (9.4-12.4) fL Immature Gran % (Auto) Neut % (Auto) Lymph % (Auto) [place] % (Auto) Eos % (Auto) Baso % (Auto) Lymph # (Auto) [place] # (Auto) Eos # (Auto) Baso # (Auto) Abs Immat Gran (auto) Absolute Neuts (auto) Absolute Nucleated RBC 0.000 (0.0-0.012) X10*3/uL Nucleated RBC % (auto) 0.0 (0.0-0.2) /100WBC Neutrophils % (Manual) (45-73) % Band Neutrophils % (3-5) % Lymphocytes % (Manual) (20-40) % Atypical Lymphs % (Man) (0-6) % Monocytes % (Manual) (2-11) % Eosinophils % (Manual) (0-4) % Basophils % (Manual) (0-2) % Abs Neuts (Manual) (2.0-8.3) X10*3/uL Lymphocytes # (Manual) (1.2-4.9) X10*3/uL Monocytes # (Manual) (0.1-1.2) X10*3/uL Eosinophils # (Manual) (0.0-0.4) X10*3/uL Platelet Estimate (NORMAL) Plt Morphology Comment RBC Morphology Polychromasia /OIF Tear Drop Cells /OIF PT 11.6 (10.9-12.4) SEC INR 1.0 (0.9-1.1) APTT 27.2 (26.0-36.8) SEC Sodium (135-145) mmol/L Potassium (3.3-5.1) mmol/L Chloride (96-108) mmol/L Carbon Dioxide (22-29) mmol/L Anion Gap (12-20) BUN (9-16) mg/dL Creatinine (0.5-1.4) mg/dL Estim Creat Clear Calc Estimated GFR Random Glucose (60-115) mg/dL Calcium (8.4-10.2) mg/dL Total Bilirubin (0.0-1.0) mg/dL AST (5-37) U/L ALT (0-40) U/L Alkaline Phosphatase (39-117) U/L Total Protein (6.5-8.0) g/dL Albumin (3.5-5.0) g/dL Lipase (8-78) U/L Urine Color Urine Appearance Urine pH (5.0-9.0) Ur Specific [place] (1.005-1.025) Urine Protein (Neg-Trace) mg/dL Urine Glucose (UA) (Negative) mg/dL Urine Ketones (Negative) mg/dL Urine Blood (Negative) Urine Nitrite (Negative) Ur Leukocyte Esterase (Negative) Urine RBC (0-2) /HPF Urine WBC (0-5) /HPF Ur Squamous Epith Cells (0-2) /HPF Urine Bacteria (None Seen) Hyaline Casts (0-2) /LPF Salicylates (15-30) mg/dL Urine Opiates Screen (Not Detect) Ur Buprenorphine Scrn (Not Detect) ng/mL Ur Oxycodone Screen (Not Detect) ng/mL Urine Methadone Screen (Not Detect) ng/mL Urine Fentanyl Screen (Not Detect) Acetaminophen (<30) mcg/mL Ur Barbiturates Screen (Not Detect) Ur Phencyclidine Scrn (Not Detect) Ur Amphetamines Screen (Not Detect) U Benzodiazepines Scrn (Not Detect) Urine Cocaine Screen (Not Detect) U Marijuana (THC) Screen (Not Detect) Ethyl Alcohol mg/dL External Record Review External record reviewed: Outpatient record Discharge Plan Discharge Clinical Impression: Suicidal ideation, Suicide attempt Patient Disposition: Admitted As Inpatient Interventions: Juab-Suicide Risk Severity Scale Last Done: 12/20/24 21:35 Discharge Date/Time: 12/20/24 17:47
[2024-12-19 07:22] LABS: Hematocrit 31.4 % (42.0-52.0); Hemoglobin 10.2 g/dl (14.0-18.0); Mean Corpuscular HGB Conc 32.5 g/dl (31.0-36.0); Mean Corpuscular Hemoglobin 28.3 pg (27.0-33.0); Mean Corpuscular Volume 87.2 fL (80.0-98.0); Platelet Count 126 X10*3/uL (160-400); Red Cell Distribution Width 14.9 % (11.0-16.0); White Blood Count 4.9 X10*3/uL (4.8-10.8)
[2024-12-19 07:39] LABS: Alanine Aminotransferase 20 U/L (0-40); Albumin Level 3.9 g/dL (3.5-5.0); Alkaline Phosphatase 67 U/L (39-117); Anion Gap 15 (12-20); Aspartate Amino Transferase 37 U/L (5-37); Bilirubin Total 0.4 mg/dL (0.0-1.0); Blood Urea Nitrogen 19 mg/dL (9-16); Calcium 8.7 mg/dL (8.4-10.2); Carbon Dioxide 24 mmol/L (22-29); Chloride 103 mmol/L (96-108); Creatinine Clr Calc Pharmacy 87.9; Estimated Glomerular Filt Rate > 60; Glucose Random 100 mg/dL (60-115); Lipase 17 U/L (8-78); Potassium 3.9 mmol/L (3.3-5.1); Sodium 138 mmol/L (135-145); Total Protein 6.7 g/dL (6.5-8.0)
[2024-12-19 07:43] LABS: Acetaminophen LAB < 3 mcg/mL (<30); Salicylate < 5.0 mg/dL (15-30)
[2024-12-19 08:35] LABS: Atypical Lymphs Percent Manual 1 % (0-6); Band Neutrophils Percent 2 % (3-5); Basophils Percent Manual 1 % (0-2); Eosinophils Absolute Manual 0.1 X10*3/uL (0.0-0.4); Eosinophils Percent Manual 2 % (0-4); Lymphocytes Absolute Manual 0.6 X10*3/uL (1.2-4.9); Lymphocytes Percent Manual 13 % (20-40); Monocytes Absolute Manual 0.6 X10*3/uL (0.1-1.2); Monocytes Percent Manual 13 % (2-11); Neutrophils Absolute Manual 3.4 X10*3/uL (2.0-8.3); Neutrophils Percent Manual 68 % (45-73)
[2024-12-19 08:38] LABS: Platelet Estimate SLIGHTLY DECREASED (NORMAL); Platelet Morphology Comment NORMAL; Polychromasia 1+ (0-2) /OIF; RBC Morphology NOTED; Tear Drop Cells 1+ (0-2) /OIF
--- NOTE | 2024-12-19 08:52 | MHC.CARE ---
Pt meets the criteria for IPLOC and will be a ZEKE bed search. Section 12a in chart. Provider in agreement.
[2024-12-19] MEDS: Diphth,Pertus(ACell),Tet Adult 0.5 ML SYRINGE IM (08:54)
--- NOTE | 2024-12-19 09:00 | PC.NURSE ---
Assumed care of pt at 0700. Pt resting in bed quietly, a/ox3, respirations even and unlabored, no increased wob/sob noted, maintaining O2 sat on RA, appears in no distress, denies cp/sob. Bilateral wrists cleaned and wrapped with gauze by hip hop dance instructorArnulfo Bush, bleeding controlled, denies pain. Pt updated on plan for EKG, urine sample, and labs. CARE team at bedside for assessment. Section 12 signed by MD Horton and placed in pt chart. Pt son updated by this RN with permission from pt. 1:1 sitter at bedside, call t[place] within reach, all needs met at this time.
--- NOTE | 2024-12-19 11:35 | PC.NURSE ---
Pt disconnected IV tubing and removed electrician office by self. Pt educated on need for IV maintenance fluids- pt increasing agitation with staff, yelling/swearing. Unable to reconnect fluids and electrician office. Aware.
--- NOTE | 2024-12-19 14:08 | PHA.MEDREC ---
Addendum entered by Nathan Tuttle RPh 12/19/24 14:25: Reviewed by [facility] Original Note: Pharmacy Consult ? Medication Reconciliation Pharmacy has completed the medication reconciliation. Patient and family at bedside are poor historians, Son states patient has cancer treatments at [facility]. Faith Bonilla is patient Oncologist [phone]. [facility]. Utilized list from [facility] to confirm med list.
[2024-12-19 15:26] LABS: Amphetamine Screen Urine Not Detected (Not Detect); Barbiturates, Urine Not Detected (Not Detect); Benzodiazepines Screen Urine Not Detected (Not Detect); Buprenorphine Scr Not Detected (Not Detect); Cannabinoid Screen Urine POSITIVE (Not Detect); Cocaine Screen Urine Not Detected (Not Detect); Fentanyl, urine Not Detected (Not Detect); Methadone Screen, Urine Not Detected (Not Detect); Opiate Screen Urine Not Detected (Not Detect); Oxycodone Screen Urine Not Detected (Not Detect); Phencyclidine Screen Urine Not Detected (Not Detect)
[2024-12-19 15:33] LABS: Appearance Urine Clear; Color Urine Yellow; Glucose Urine UA Negative (Negative); Leukocyte Esterase Urine Negative (Negative); Nitrite Urine Negative (Negative); PH 6.5 (5.0-9.0); Specific Gravity - Urine >= 1.030 (1.005-1.025); UMIC TRIGGER UACC YES; Urine Blood Negative (Negative); Urine Ketones >=160 mg/dL (Negative); Urine Protein 30 (1+) mg/dL (Neg-Trace)
[2024-12-19 16:01] LABS: Bacteria Urine None Seen (None Seen); RBC Urine 0-2 /HPF (0-2); Squamous Epithelial Cell Urine 0-2 /HPF (0-2); WBC Urine 0-5 /HPF (0-5)
[2024-12-19 17:01] LABS: Hemoglobin 9.4 g/dl (14.0-18.0); Mean Platelet Volume 9.4 fL (9.4-12.4); PLT CLUMP 1
[2024-12-19 17:02] LABS: Hematocrit 28.1 % (42.0-52.0); Mean Corpuscular HGB Conc 33.5 g/dl (31.0-36.0); Mean Corpuscular Hemoglobin 28.4 pg (27.0-33.0); Mean Corpuscular Volume 84.9 fL (80.0-98.0); Prothrombin Time 11.6 SEC (10.9-12.4); Red Blood Count 3.31 X10*6/uL (4.60-5.80)
[2024-12-19 17:05] LABS: Partial Thromboplastin Time 27.2 SEC (26.0-36.8)
[2024-12-19 17:15] LABS: Platelet Count 158 X10*3/uL (160-400); White Blood Count 4.3 X10*3/uL (4.8-10.8)
[2024-12-19] MEDS: Enoxaparin Sodium 100 MG/ML SYRINGE 90 MG SUBCUT (17:35)
[2024-12-19] MEDS: Atorvastatin Calcium 20 MG TABLET PO (17:35)
[2024-12-19] MEDS: Omeprazole 20 MG CAPSULE.DR PO (17:35)
[2024-12-19] MEDS: polyethylene glycoL 3350 17 GM POWD.PACK PO (17:36)
[2024-12-19] MEDS: lisinopriL 5 MG TABLET PO (17:38)
[2024-12-19 20:34] LABS: Ethanol < 10 mg/dL
[2024-12-19] MEDS: Metoprolol Tartrate 25 MG TABLET PO (21:51)
[2024-12-19] MEDS: timoloL maleate 0.5 % Oph Sol 5 ML DRBTL 1 DROP EYE-BOTH (21:52)
[2024-12-19] MEDS: Brimonidine Tartrate 0.2% Oph 5 ML BOTTLE 1 DROP EYE-BOTH (21:52)
[2024-12-19] MEDS: Hydrocortisone 2.5 % Rectal Cr 30 GM TUBE 1 APPL PR (21:52)
[2024-12-19] MEDS: Docusate Sodium 100 MG CAPSULE PO (21:52)
[2024-12-20 03:24] VITALS: BP 147/82; PULSE 74; RESP 16; TEMP 36.4; O2SAT 98
[2024-12-20] MEDS: Ibuprofen 400 MG TABLET PO ×3 (03:24→20:53)
[2024-12-20] MEDS: Enoxaparin Sodium 100 MG/ML SYRINGE 90 MG SUBCUT ×2 (06:10→20:55)
[2024-12-20] MEDS: Omeprazole 20 MG CAPSULE.DR PO (06:10)
[2024-12-20] MEDS: Metoprolol Tartrate 25 MG TABLET PO ×2 (09:02→20:53)
[2024-12-20] MEDS: Ferrous Sulfate 324 MG TABLET.DR PO (09:02)
[2024-12-20] MEDS: Atorvastatin Calcium 20 MG TABLET PO (09:02)
[2024-12-20] MEDS: lisinopriL 5 MG TABLET PO (09:02)
[2024-12-20] MEDS: Brimonidine Tartrate 0.2% Oph 5 ML BOTTLE 1 DROP EYE-BOTH ×2 (09:02→21:00)
[2024-12-20] MEDS: timoloL maleate 0.5 % Oph Sol 5 ML DRBTL 1 DROP EYE-BOTH ×2 (09:02→20:55)
[2024-12-20] MEDS: polyethylene glycoL 3350 17 GM POWD.PACK PO (09:02)
[2024-12-20] MEDS: Docusate Sodium 100 MG CAPSULE PO ×2 (09:02→20:54)
--- NOTE | 2024-12-20 11:18 | MHC.EDTECH ---
pt's bilateral wrists wounds were unwrapped, bleeding controlled, wounds were cleaned with saline and betadine, three steri strips to each wrist were placed. RN made aware
[2024-12-20 15:09] LABS: Hematocrit 29.4 % (42.0-52.0); Hemoglobin 9.7 g/dl (14.0-18.0); Mean Corpuscular Hemoglobin 28.4 pg (27.0-33.0); Mean Platelet Volume 9.7 fL (9.4-12.4); Platelet Count 158 X10*3/uL (160-400); Red Blood Count 3.42 X10*6/uL (4.60-5.80); Red Cell Distribution Width 15.1 % (11.0-16.0); White Blood Count 4.8 X10*3/uL (4.8-10.8)
[2024-12-20 15:19] LABS: Prothrombin Time 11.7 SEC (10.9-12.4)
[2024-12-20 16:05] VITALS: BP 136/68; PULSE 73; RESP 18; TEMP 36.6; O2SAT 98
[2024-12-20 18:58] VITALS: BP 157/84; PULSE 95; RESP 18; TEMP 36.3; O2SAT 98
--- NOTE | 2024-12-20 19:00 | PC.NURSE ---
Patient arrived to the unit in w/c. The reason for admission was increased depression, hopelessness, suicide attempt by cutting his wrists. Med hx include CVA, A-Fib, Hypertension. Patient was brought to the [facility] from home where he resides alone. Pt said he moved to [place] two years ago and then he found he had liver and abdominal cancer, still continues treatment for cancer. Recently had severe abdominal pain for 2 weeks without getting better then decided to end his life. Upon admission assessment pt is alert and oriented x4. Slightly hard of hearing, speech clear. VS: T 97.3, P 95, BP 157/84, O2sat 98% on RA. Denies pain. Skin check reveals steri strips to bilateral wrists, bilateral LE edema, athletes feet b/w toes, facial eczema, bruising on abdomen. Pt signed CV. Ambulates independently, gait steady. Oriented to the unit, room, provided toiletries, menu for tomorrow completed.
[2024-12-20 19:17] VITALS: BMI 27.0
[2024-12-20 21:27] VITALS: BP 120/71; PULSE 92; RESP 18; TEMP 36.6; O2SAT 99
[2024-12-21] MEDS: traZODone HCL 50 MG TABLET PO ×2 (00:43→22:30)
[2024-12-21] MEDS: Acetaminophen 325 MG TABLET 650 MG PO ×2 (00:43→12:30)
[2024-12-21] MEDS: Omeprazole 20 MG CAPSULE.DR PO (05:46)
[2024-12-21 08:00] VITALS: BP 144/77; PULSE 86; RESP 18; TEMP 36.4; O2SAT 96
[2024-12-21] MEDS: Enoxaparin Sodium 100 MG/ML SYRINGE 90 MG SUBCUT ×2 (08:02→20:16)
[2024-12-21 08:08] LABS: Estimated Average Glucose 97 mg/dL; Hemoglobin A1C 78.5533 umol/L; Total Hemoglobin (HGBA1C) 2564.5273 umol/L
[2024-12-21 08:22] LABS: Alanine Aminotransferase 20 U/L (0-40); Alkaline Phosphatase 68 U/L (39-117); Anion Gap 14 (12-20); Aspartate Amino Transferase 32 U/L (5-37); Bilirubin Total 0.4 mg/dL (0.0-1.0); Blood Urea Nitrogen 19 mg/dL (9-16); Calcium 9.2 mg/dL (8.4-10.2); Carbon Dioxide 25 mmol/L (22-29); Chloride 101 mmol/L (96-108); Cholesterol 120 mg/dL (<200); Creatinine Clr Calc Pharmacy 78.7; Estimated Glomerular Filt Rate > 60; Glucose Random 101 mg/dL (60-115); HDL Cholesterol 38 mg/dL (>40); LDL Cholesterol Calculated 57 mg/dL (<100); Potassium 3.7 mmol/L (3.3-5.1); Sodium 136 mmol/L (135-145); Total Protein 6.8 g/dL (6.5-8.0); Triglycerides 126 mg/dL (<150)
[2024-12-21 08:32] LABS: Thyroid Stimulating Hormone 2.54 uIU/mL (0.32-4.0)
[2024-12-21 08:49] LABS: Folate 12.9 ng/mL (> or = 4.0); Vitamin B12 627 pg/mL (200-900)
[2024-12-21] MEDS: timoloL maleate 0.5 % Oph Sol 5 ML DRBTL 1 DROP EYE-BOTH ×2 (08:53→20:36)
[2024-12-21] MEDS: Brimonidine Tartrate 0.2% Oph 5 ML BOTTLE 1 DROP EYE-BOTH ×2 (08:53→20:21)
[2024-12-21] MEDS: polyethylene glycoL 3350 17 GM POWD.PACK PO (08:55)
[2024-12-21] MEDS: Atorvastatin Calcium 20 MG TABLET PO (08:55)
[2024-12-21] MEDS: lisinopriL 5 MG TABLET PO (08:55)
[2024-12-21] MEDS: Docusate Sodium 100 MG CAPSULE PO ×2 (08:55→20:27)
[2024-12-21] MEDS: Metoprolol Tartrate 25 MG TABLET PO ×2 (08:56→20:22)
[2024-12-21 09:04] VITALS: BMI 27.0
--- NOTE | 2024-12-21 09:42 | P.HPPS_ITS ---
HPI Date of Service: 12/21/24 Chief Complaint: SA Sources of Information: patient interviewed, chart reviewed and crisis/core team assessment reviewed HPI Subjective Notes: Johnson Warning and Conditional Voluntary Narrative: Mr. Cortes is an 79 year-old male with hx of liver/colon cancer who was brought via EMS after he called 911 reporting suicide attempt via cutting both wrists in context of severe abdominal pain for the past 3 weeks. Pt does have terminal cancer in palliative stages. No prior psychiatric hx nor suicide attempts. Pt presented as pleasant and cooperative. He reports he has been going to ED at [facility] due to severe abdominal in context of liver/colon cancer. He reports he has been told he has one year left to live, which he has accepted but in the past 3 weeks he reports excruciating physical pain. He reports he has been referred to GI for further management outpatient but has not been given a follow up appointment. He reports the day of suicide attempt he was in a lot of pain. He reports slow motility, constipation with periods of cramping and loose stools. He reports nausea, then vomiting. He reports he decided to cut his wrist and went to the bathroom. He reports he used a knife that was not too sharp and after several attempts and cuts, he decided to get out of the tub with much effort as he states that he was feeling very weak and could barely walk out of the tub. He called 911 and asked for help. He reports at this moment he does not have any thought of wanting to end his life. He does say that he has accepted the fact that he will sooner rather than later due to his advanced cancer. He reports he is content with the life he lived and the work he did. He reports he does not want to be in physical pain. He reports he has not had abdominal pain today nor yesterday while in the ED. He is glad about this. He does report that if any help given to be medical focusing on managing the pain and keeping him comfortable. He reports he still want to continue chemotherapy. Past Psychiatric History: Inpt: none prior OP: none No prior hx of suicide attempt. Medical Evaluation Reviewed: Yes [facility] Medical History Hypertension CVA (cerebral vascular accident) Diagnostics Vital Signs (24Hr): Vital Signs - 24 hr 12/20/24 16:05 12/20/24 18:58 12/20/24 21:27 Temperature 97.9 F 97.3 F 97.8 F Pulse Rate 73 95 92 Respiratory Rate 18 18 18 Blood Pressure 136/68 157/84 H 120/71 Pulse Oximetry 98 98 99 Oxygen Delivery Method Room Air Room Air Room Air 12/21/24 08:00 Temperature 97.6 F Pulse Rate 86 Respiratory Rate 18 Blood Pressure 144/77 H Pulse Oximetry 96 Oxygen Delivery Method Room Air BMI result Body Mass Index 27.0 Labs 12/20/24 15:03 12/21/24 07:43 Labs: Laboratory Results - last 48 hr 12/19/24 12/19/24 12/19/24 07:16 15:10 16:38 WBC 4.3 L RBC 3.31 L Hgb 9.4 L Hct 28.1 L MCV 84.9 MCH 28.4 MCHC 33.5 RDW 15.0 Plt Count 158 L D MPV 9.4 Absolute Nucleated RBC 0.000 Nucleated RBC % (auto) 0.0 PT 11.6 INR 1.0 APTT 27.2 Sodium Potassium Chloride Carbon Dioxide Anion Gap BUN Creatinine Estim Creat Clear Calc Estimated GFR Random Glucose Estimat Average Glucose Hemoglobin A1c % Calcium Total Bilirubin AST ALT Alkaline Phosphatase Total Protein Albumin Triglycerides Cholesterol LDL Cholesterol, Calc HDL Cholesterol Vitamin B12 Folate TSH Urine Color Yellow Urine Appearance Clear Urine pH 6.5 Ur Specific [place] >= 1.030 H Urine Protein 30 (1+) H Urine Glucose (UA) Negative Urine Ketones >=160 Urine Blood Negative Urine Nitrite Negative Ur Leukocyte Esterase Negative Urine RBC 0-2 Urine WBC 0-5 Ur Squamous Epith Cells 0-2 Urine Bacteria None Seen Hyaline Casts 6-10 Urine Opiates Screen Not Detected Ur Buprenorphine Scrn Not Detected Ur Oxycodone Screen Not Detected Urine Methadone Screen Not Detected Urine Fentanyl Screen Not Detected Ur Barbiturates Screen Not Detected Ur Phencyclidine Scrn Not Detected Ur Amphetamines Screen Not Detected U Benzodiazepines Scrn Not Detected Urine Cocaine Screen Not Detected U Marijuana (THC) Screen POSITIVE H Ethyl Alcohol < 10 12/20/24 12/21/24 15:03 07:43 WBC 4.8 RBC 3.42 L Hgb 9.7 L Hct 29.4 L MCV 86.0 MCH 28.4 MCHC 33.0 RDW 15.1 Plt Count 158 L MPV 9.7 Absolute Nucleated RBC 0.000 Nucleated RBC % (auto) 0.0 PT 11.7 INR 1.0 APTT Sodium 136 Potassium 3.7 Chloride 101 Carbon Dioxide 25 Anion Gap 14 BUN 19 H Creatinine 0.76 Estim Creat Clear Calc 78.7 Estimated GFR > 60 Random Glucose 101 Estimat Average Glucose 97 Hemoglobin A1c % 5.0 Calcium 9.2 Total Bilirubin 0.4 AST 32 ALT 20 Alkaline Phosphatase 68 Total Protein 6.8 Albumin 4.0 Triglycerides 126 Cholesterol 120 LDL Cholesterol, Calc 57 HDL Cholesterol 38 L Vitamin B12 627 Folate 12.9 TSH 2.54 Urine Color Urine Appearance Urine pH Ur Specific [place] Urine Protein Urine Glucose (UA) Urine Ketones Urine Blood Urine Nitrite Ur Leukocyte Esterase Urine RBC Urine WBC Ur Squamous Epith Cells Urine Bacteria Hyaline Casts Urine Opiates Screen Ur Buprenorphine Scrn Ur Oxycodone Screen Urine Methadone Screen Urine Fentanyl Screen Ur Barbiturates Screen Ur Phencyclidine Scrn Ur Amphetamines Screen U Benzodiazepines Scrn Urine Cocaine Screen U Marijuana (THC) Screen Ethyl Alcohol Meds/Allergies Meds Home Medications ?Medication ?Instructions ?Recorded ?Confirmed ?Type brimonidine 0.2 %-timolol 0.5 % 1 drp ophthalmic (eye) BID 12/19/24 12/19/24 History eye drops docusate sodium 100 mg capsule 100 mg PO BID 12/19/24 12/19/24 History enoxaparin 100 mg/mL subcutaneous 90 mg subcut Q12H 12/19/24 12/19/24 History syringe ferrous gluconate 324 mg (38 mg 324 mg PO Q48H 12/19/24 12/19/24 History iron) tablet hydrocortisone 2.5 % topical cream 1 appl MD BID 12/19/24 12/19/24 History with perineal applicator (Procto-Med HC) lisinopril 5 mg tablet 5 mg PO DAILY 12/19/24 12/19/24 History loteprednol etabonate 0.5 % eye See Rx Instructions .Route .COMPLEX 12/19/24 12/19/24 History ointment (Lotemax) metoprolol tartrate 25 mg tablet 25 mg PO BID 12/19/24 12/19/24 History pantoprazole 40 mg tablet,delayed 40 mg PO DAILY@0630 12/19/24 12/19/24 History release polyethylene glycol 3350 17 gram 17 g PO DAILY 12/19/24 12/19/24 History oral powder packet (Miralax) prochlorperazine maleate 5 mg 5 - 10 mg PO Q6H PRN Nausea 12/19/24 12/19/24 History tablet (Compazine) simvastatin 40 mg tablet 40 mg PO DAILY 12/19/24 12/19/24 History trifluridine 15 mg-tipiracil 6.14 1 tab PO BID 12/19/24 12/19/24 History mg tablet (Lonsurf) Allergies Allergies Allergy/AdvReac Type Severity Reaction Status Date / Time No Known Allergies Allergy Verified 12/19/24 06:08 Mental Status Exam Mental Status Exam Narrative: Appearance: wearing hospital gown, fair hygiene in NAD Behavior: cooperative, friendly PSychomotor: no agitation or retardation noted Speech: clear, normal rate/rhythm/volume, spontaneous TP: linear TC: not wanting to be in excrutiating pain Mood: better today Affect: congruent SI: none HI: none VH/AH: none Delusions: none Insight/judgment: intact x 2. memory/cog: alert, oriented x 4. grossly intact to conversational testing but not formally tested. Assessment & Plan Assessment & Plan (1) Acute reaction to situational stress: Status: Acute Code(s): F43.0 - Acute stress reaction Plan Mr. Cortes is an 79 year-old male with hx of advanced liver/colon cancer who was brought via EMS after he called 911 due to suicide attempt via cutting both wrist (no stitches needed) severe abdominal pain in context of terminal cancer with prognosis of one year left to live. He appears to have accepted the fact that his medical condition is terminal but given excruciating pain and several ED visits with no relief and follow up appointments delayed to see GI he reports he felt he had no other option. He does not report suicidal ideation now. He reports he does not want to be in severe pain and suffering. Seen by hospitalist today who will coordinate additional medical care. May consult GI for additional input. Will hold on adding any medications today until having better idea as to what is going on medically. Will add prn doses of ativan. PLAN 1. Admit to S1, CV, 5 minutes checks 2. continue current medications 3. obtain collateral information 4. aftercare planning. Patient educated on: diagnosis and medication risk/benefits Reason for continued inpatient stay Substantial Risk for: harm to self Statement Statement: I have reviewed the history and physical and performed a pertinent examination on my patient. No changes have occurred unless specified. If the History and Physical was not performed prior to admission, the Hospitalist's service will be consulted for completing the admission physical. Time Spent With Patient Time: Total time managing care of this patient today ____ minutes.
--- NOTE | 2024-12-21 11:05 | P.CONHOSP_ITS ---
History of Present Illness Data of Consult Service Date: 12/21/24 Requesting physician: Trudy Gomez Primary Care Provider: Unknown Physician HPI Reason for consult: Consult for medical evaluation Mario Alberto is an 79-year-old male with a diagnosis of malignant colon cancer to the liver, anemia, cataracts, history of CVA with no residual effects, hyperlipidemia, hypertensive disorder, paroxysmal AFib who was admitted here after he presented to ED with suicidal ideation and attempt. Notably he has been having pain in his abdomen, he has been in the emergency room at [facility] 3 times in last 1-1/2 weeks. Prior to admission he cut both of his wrists in the bathtub with a knife, he has Steri-Strips intact. He is followed by [facility] oncology. He was last seen on 12/12/2024. Per oncology notes he has lost 10 lb over the past month. He had a CT scan on 12/06/2024 that shows progression of liver metastasis and increasing the bulk of the primary colon and the ascending colon without evidence of bowel obstruction. Per oncology notes his cancers progress despite the most effective chemo regime, Oncology recommended the possible use of a new medication with a goal of tumor control for a period of time without prospect of cure. It is noted that he was ordered to get a stool culture and C diff PCR due to loose stools unclear if this happened. He reports continued abdominal discomfort on both sides of his abdomen, he has had successful bowel movements with the use of milk of magnesia. Reports that he has not gone to the bathroom in several days. Prior to admission his pain was controlled on Tylenol and Motrin. He is alert and articulate, excellent historian. Review of Systems 2 Review of Systems: He denies any shortness of breath, dizziness, lightheadedness, headaches, fatigue, fever or chills. [facility] Medical History Hypertension CVA (cerebral vascular accident) Pertinent family history: Mother with breast cancer age 100 Father and brother with history of strokes before age 65 Social History Household Members: None Housing: Condominium Do you presently have visiting nurse or other home services: No Patient Tobacco Use Status: Former Tobacco user Tobacco use type: Cigarette Smoked in Last 30 Days: No Use of substances other than those prescribed or required for medical reasons: Yes Substance Use Type: Marijuana Substance Use Frequency: Daily Last Used Substance: Just Prior to Admission Currently Displaying Signs/Symptoms of Drug Intoxication Withdrawal: No Any prior treatment program specific to substance use: No Have you been hit, kicked, punched, or otherwise hurt by someone within the past year? If so, by whom?: No Do you feel safe in your current relationship?: No Current Relationship Is there a partner from a previous relationship who is making you feel unsafe now?: No Are you made to feel afraid or neglected: No Advance Directives: No Advance Directives Information Provided: Yes Do you have thoughts of harming others: None Do you have a plan to hurt others: No Plan Recently lost weight without trying: Unsure Eating poorly because of decreased appetite: Yes Poor oral hygiene: No Meds Allergies Allergy/AdvReac Type Severity Reaction Status Date / Time No Known Allergies Allergy Verified 12/19/24 06:08 Active Medications: Current Medications Acetaminophen (Acetaminophen 325 Mg Tablet) 650 mg PO Q6H PRN PRN Reason: Headache/Pain, Scale 1-10 Last Admin: 12/21/24 00:43 Dose: 650 mg Al Hydroxide/Mg Hydroxide (Magnesium Hydrox/Alum Hydrox 30 Ml Oral.Susp) 30 ml PO Q6H PRN PRN Reason: Heartburn/Nausea Atorvastatin Calcium (Atorvastatin Calcium 20 Mg Tablet) 20 mg PO DAILY [facility] Last Admin: 12/21/24 08:55 Dose: 20 mg Brimonidine Tartrate (Brimonidine Tartrate 0.2% Oph 5 Ml Bottle) 1 drop EYE- BOTH BID [facility] Last Admin: 12/21/24 08:53 Dose: 1 drop Docusate Sodium (Docusate Sodium 100 Mg Capsule) 100 mg PO BID [facility] Last Admin: 12/21/24 08:55 Dose: 100 mg Enoxaparin Sodium (Enoxaparin Sodium 100 Mg/Ml Syringe) 90 mg SUBCUT Q12H [facility] Last Admin: 12/21/24 08:28 Dose: Not Given Ferrous Sulfate (Ferrous Sulfate 324 Mg Tablet.Dr) 324 mg PO Q48H [facility] Last Admin: 12/20/24 09:02 Dose: 324 mg Hydrocortisone (Hydrocortisone 2.5 % Rectal Cr 30 Gm Tube) 1 appl MD BID [facility] Last Admin: 12/21/24 08:55 Dose: Not Given Lisinopril (Lisinopril 5 Mg Tablet) 5 mg PO DAILY [facility]; Protocol Last Admin: 12/21/24 08:55 Dose: 5 mg Magnesium Hydroxide (Milk Of Magnesia 30 Ml Oral.Susp) 30 ml PO DAILY PRN PRN Reason: Constipation Metoprolol Tartrate (Metoprolol Tartrate 25 Mg Tablet) 25 mg PO BID [facility]; Protocol Last Admin: 12/21/24 08:56 Dose: 25 mg Non-Formulary Medication (Loteprednol Etabonate [Lotemax]) 0 appl EYE-BOTH .COMPLEX [facility] Non-Formulary Medication (Trifluridine-Tipiracil [Lonsurf]) 1 tab PO BID [facility] Omeprazole (Omeprazole 20 Mg Capsule.Dr) 20 mg PO DAILY@0630 [facility] Last Admin: 12/21/24 05:46 Dose: 20 mg Polyethylene Glycol (Polyethylene Glycol 3350 17 Gm Powd.Pack) 17 gm PO DAILY [facility] Last Admin: 12/21/24 08:55 Dose: 17 gm Prochlorperazine Maleate (Prochlorperazine Maleate 5 Mg Tablet) 5 - 10 mg PO Q6H PRN PRN Reason: Nausea Timolol Maleate (Timolol Maleate 0.5 % Oph Stephanie 5 Ml Drbtl) 1 drop EYE-BOTH BID [facility] Last Admin: 12/21/24 08:53 Dose: 1 drop Trazodone HCl (Trazodone Hcl 50 Mg Tablet) 50 mg PO BEDTIME MRX1 PRN PRN Reason: Insomnia Last Admin: 12/21/24 00:43 Dose: 50 mg Home Medications ?Medication ?Instructions ?Recorded ?Confirmed ?Last Taken ?Type brimonidine 0.2 %-timolol 0.5 % 1 drp ophthalmic (eye) BID 12/19/24 12/19/24 Unknown History eye drops docusate sodium 100 mg capsule 100 mg PO BID 12/19/24 12/19/24 Unknown History enoxaparin 100 mg/mL subcutaneous 90 mg subcut Q12H 12/19/24 12/19/24 Unknown History syringe ferrous gluconate 324 mg (38 mg 324 mg PO Q48H 12/19/24 12/19/24 Unknown History iron) tablet hydrocortisone 2.5 % topical cream 1 appl MD BID 12/19/24 12/19/24 Unknown History with perineal applicator (Procto-Med HC) lisinopril 5 mg tablet 5 mg PO DAILY 12/19/24 12/19/24 Unknown History loteprednol etabonate 0.5 % eye See Rx Instructions .Route .COMPLEX 12/19/24 12/19/24 Unknown History ointment (Lotemax) metoprolol tartrate 25 mg tablet 25 mg PO BID 12/19/24 12/19/24 Unknown History pantoprazole 40 mg tablet,delayed 40 mg PO DAILY@0630 12/19/24 12/19/24 Unknown History release polyethylene glycol 3350 17 gram 17 g PO DAILY 12/19/24 12/19/24 Unknown History oral powder packet (Miralax) prochlorperazine maleate 5 mg 5 - 10 mg PO Q6H PRN Nausea 12/19/24 12/19/24 Unknown History tablet (Compazine) simvastatin 40 mg tablet 40 mg PO DAILY 12/19/24 12/19/24 Unknown History trifluridine 15 mg-tipiracil 6.14 1 tab PO BID 12/19/24 12/19/24 Unknown History mg tablet (Lonsurf) Physical Exam 2 Vital Signs and Narrative: Vital Signs: Last Vital Signs Temp 97.6 F 12/21/24 08:00 Pulse 86 12/21/24 08:00 Resp 18 12/21/24 08:00 BP 144/77 H 12/21/24 08:00 Pulse Ox 96 12/21/24 08:00 O2 Del Method Room Air 12/21/24 08:00 BMI result Body Mass Index 27.0 Alert and oriented X3, able to give good history. Neuro: CN II-X11 intact, no deficits, visual acuity intact EYES: PERRLA, EOM intact ENT: hearing intact, uvula midline, lips moist, nares patent no epistaxis Cardiac: S1 S2 RRR, no murmur, no JVD, no edema in Lower ext Pulmonary: lungs clear to auscultation, No increased WOB. Abdominal: BS active in all 4 quadrants, no guarding, tenderness, rebounding MSK: Strength 5/5 upper and lower extremities : no CVA tenderness no bladder distension Extremities: no edema in lower extremities, PT and DP pulses palpable +2 Psych: mood stable, judgement and insight good Skin: Warm and dry, Intact scabbed areas noted to bilateral wrists, Steri-Strips intact, no active bleeding. No evidence of redness swelling or warmth Results Labs 12/20/24 15:03 12/21/24 07:43 Labs: Laboratory Results - last 24 hr 12/20/24 12/21/24 15:03 07:43 MCV 86.0 MCH 28.4 MCHC 33.0 RDW 15.1 Plt Count 158 L MPV 9.7 Absolute Nucleated RBC 0.000 Nucleated RBC % (auto) 0.0 PT 11.7 INR 1.0 Anion Gap 14 Estim Creat Clear Calc 78.7 Estimated GFR > 60 Random Glucose 101 Estimat Average Glucose 97 Hemoglobin A1c % 5.0 Calcium 9.2 Total Bilirubin 0.4 AST 32 ALT 20 Alkaline Phosphatase 68 Total Protein 6.8 Albumin 4.0 Triglycerides 126 Cholesterol 120 LDL Cholesterol, Calc 57 HDL Cholesterol 38 L Vitamin B12 627 Folate 12.9 TSH 2.54 Assessment and Plan (1) Suicidal ideation: Status: Acute (2) Metastatic colon cancer to liver: Status: Acute Plan Depression/suicidal ideation and attempt Contributing factor metastatic colon cancer with advancing disease despite optimal chemo treatment Plan per Psychiatry team Metastatic colon cancer with advanced disease Patient treated by Dr. Bonilla at [facility] recent CT scan on 12 06 demonstrated advanced disease Prior to admission his pain is controlled on Motrin/Tylenol. Continue to monitor and address pain management needs if patient's pain is not controlled Compazine for nausea as needed Continue supportive care with comfort measures including foods and fluids When psychiatrically stable patient will need to follow up with GI for continued treatment plan. Abdominal pain, discomfort Monitor bowel movements, continue MiraLax daily, colace daily Continue milk of magnesia as needed to maintain bowel movements If patient experiences loose stools please collect stool for C diff as well as a stool culture Monitor for any changes in bowel pattern Hypertension/AFib/HLD Rate control with metoprolol, continues on lisinopril and simcastatin Lovenox for DVT prophylaxis Patient was previously awaiting a Watchman procedure but this has not occurred Continue rate control less than 110 Glaucoma Continue eyedrops as ordered Anemia most likely due to GI losses Continue ferrous gluconate 324 every other day Continue pantoprazole 40 mg daily Follow CBC weekly Medicine service to follow This note is constructed using voice recognition software. While every effort has been made to ensure accuracy, stripper black and white errors may have been included.
[2024-12-21 13:57] VITALS: BMI 27.0
[2024-12-21 15:34] VITALS: BP 144/77; PULSE 86; O2SAT 96
[2024-12-21 20:00] VITALS: BP 152/68; PULSE 80; RESP 16; TEMP 36.6; O2SAT 97
[2024-12-21] MEDS: Hydrocortisone 2.5 % Rectal Cr 30 GM TUBE 1 APPL PR (20:20)
[2024-12-21 20:22] VITALS: BP 153/73; PULSE 85
[2024-12-21 21:47] LABS: CDiff Gene PCR NEGATIVE (Negative)
[2024-12-22] MEDS: Acetaminophen 325 MG TABLET 650 MG PO ×2 (02:18→21:59)
[2024-12-22] MEDS: Omeprazole 20 MG CAPSULE.DR PO (06:26)
[2024-12-22 09:00] VITALS: BP 155/75; PULSE 94; RESP 20; TEMP 36.6; O2SAT 97
[2024-12-22] MEDS: Docusate Sodium 100 MG CAPSULE PO ×2 (09:03→22:15)
[2024-12-22] MEDS: Atorvastatin Calcium 20 MG TABLET PO (09:03)
[2024-12-22] MEDS: Metoprolol Tartrate 25 MG TABLET PO ×2 (09:03→22:14)
[2024-12-22] MEDS: lisinopriL 5 MG TABLET PO (09:03)
[2024-12-22] MEDS: Ferrous Sulfate 324 MG TABLET.DR PO (09:04)
[2024-12-22] MEDS: polyethylene glycoL 3350 17 GM POWD.PACK PO (09:09)
[2024-12-22] MEDS: Brimonidine Tartrate 0.2% Oph 5 ML BOTTLE 1 DROP EYE-BOTH (09:11)
[2024-12-22] MEDS: Enoxaparin Sodium 100 MG/ML SYRINGE 90 MG SUBCUT ×2 (09:12→21:17)
[2024-12-22] MEDS: timoloL maleate 0.5 % Oph Sol 5 ML DRBTL 1 DROP EYE-BOTH ×2 (09:29→21:20)
[2024-12-22 10:29] LABS: Adenovirus F 40/41 Not Detected (Not Detect.); Astrovirus Not Detected (Not Detect.); Campylobacter Not Detected (Not Detect.); Cryptosporidium Not Detected (Not Detect.); Cyclospora cayetanensis Not Detected (Not Detect.); E. coli EAEC Not Detected (Not Detect.); E. coli EPEC Not Detected (Not Detect.); E. coli ETEC Not Detected (Not Detect.); E. coli STEC Not Detected (Not Detect.); Entamoeba histolytica Not Detected (Not Detect.); Giardia lamblia Not Detected (Not Detect.); Norovirus GI/GII Not Detected (Not Detect.); Plesiomonas shigelloides Not Detected (Not Detect.); Rotavirus A Not Detected (Not Detect.); Salmonella Not Detected (Not Detect.); Sapovirus Not Detected (Not Detect.); Shigella sp./EIEC Not Detected (Not Detect.); Vibrio Not Detected (Not Detect.); Vibrio Cholerae Not Detected (Not Detect.); Yersinia enterocolitica Not Detected (Not Detect.)
--- NOTE | 2024-12-22 12:32 | HO.PSYCHPN ---
Subjective Subjective Date of Service: 12/22/24 Reason For Visit: SA Interim History: Pt seen, reviewed with team. Pt resting when seen, Wrist cuts healing. Team report no sx of agitation, pt denies issues today, wanting to continue resting. Medication Compliance: Yes Review of Systems Acute medical concerns: Yes colon, hepatic carcinoma Review of Systems Review of Systems Denies today. Mental Status Exam Mental Status Exam Patient Appearance: Appropriate Patient Orientation: Person Level of Consciousness: Awake and Drowsy Patient Behavior: Appropriate, Cooperative and Fatigued Mood Description: Depressed Affect Description: Flat Ability to Follow Directions: Good Speech Pattern: Spontaneous Speech Depressive Symptoms: Increased Fatigue and Loss of Energy Judgement: Poor Diagnostics Vital Signs (24Hr): Vital Signs - 24 hr 12/21/24 15:34 12/21/24 20:00 12/21/24 20:22 Temperature 97.8 F Pulse Rate 86 80 85 Respiratory Rate 16 Blood Pressure 144/77 H 152/68 H 153/73 H Pulse Oximetry 96 97 Oxygen Delivery Method Room Air 12/22/24 09:00 Temperature 97.9 F Pulse Rate 94 Respiratory Rate 20 Blood Pressure 155/75 H Pulse Oximetry 97 Oxygen Delivery Method Room Air BMI result Body Mass Index 27.0 Labs 12/20/24 15:03 12/21/24 07:43 Labs: Laboratory Results - last 48 hr 12/20/24 12/21/24 12/21/24 15:03 07:43 20:00 WBC 4.8 RBC 3.42 L Hgb 9.7 L Hct 29.4 L MCV 86.0 MCH 28.4 MCHC 33.0 RDW 15.1 Plt Count 158 L MPV 9.7 Absolute Nucleated RBC 0.000 Nucleated RBC % (auto) 0.0 PT 11.7 INR 1.0 Sodium 136 Potassium 3.7 Chloride 101 Carbon Dioxide 25 Anion Gap 14 BUN 19 H Creatinine 0.76 Estim Creat Clear Calc 78.7 Estimated GFR > 60 Random Glucose 101 Estimat Average Glucose 97 Hemoglobin A1c % 5.0 Calcium 9.2 Total Bilirubin 0.4 AST 32 ALT 20 Alkaline Phosphatase 68 Total Protein 6.8 Albumin 4.0 Triglycerides 126 Cholesterol 120 LDL Cholesterol, Calc 57 HDL Cholesterol 38 L Vitamin B12 627 Folate 12.9 TSH 2.54 C. difficile Tox B Gene NEGATIVE Medications Medications Current Medications Acetaminophen (Acetaminophen 325 Mg Tablet) 650 mg PO Q6H PRN PRN Reason: Headache/Pain, Scale 1-10 Last Admin: 12/22/24 02:18 Dose: 650 mg Al Hydroxide/Mg Hydroxide (Magnesium Hydrox/Alum Hydrox 30 Ml Oral.Susp) 30 ml PO Q6H PRN PRN Reason: Heartburn/Nausea Atorvastatin Calcium (Atorvastatin Calcium 20 Mg Tablet) 20 mg PO DAILY [facility] Last Admin: 12/22/24 09:03 Dose: 20 mg Brimonidine Tartrate (Brimonidine Tartrate 0.2% Oph 5 Ml Bottle) 1 drop EYE-BOTH BID [facility] Last Admin: 12/22/24 09:11 Dose: 1 drop Docusate Sodium (Docusate Sodium 100 Mg Capsule) 100 mg PO BID [facility] Last Admin: 12/22/24 09:03 Dose: 100 mg Enoxaparin Sodium (Enoxaparin Sodium 100 Mg/Ml Syringe) 90 mg SUBCUT Q12H [facility] Last Admin: 12/22/24 09:12 Dose: 90 mg Ferrous Sulfate (Ferrous Sulfate 324 Mg Tablet.) 324 mg PO Q48H [facility] Last Admin: 12/22/24 09:04 Dose: 324 mg Hydrocortisone (Hydrocortisone 2.5 % Rectal Cr 30 Gm Tube) 1 appl [place] BID [facility] Last Admin: 12/22/24 09:16 Dose: Not Given Lisinopril (Lisinopril 5 Mg Tablet) 5 mg PO DAILY [facility]; Protocol Last Admin: 12/22/24 09:03 Dose: 5 mg Magnesium Hydroxide (Milk Of Magnesia 30 Ml Oral.Susp) 30 ml PO DAILY PRN PRN Reason: Constipation Metoprolol Tartrate (Metoprolol Tartrate 25 Mg Tablet) 25 mg PO BID [facility]; Protocol Last Admin: 12/22/24 09:03 Dose: 25 mg Non-Formulary Medication (Loteprednol Etabonate [Lotemax]) 0 appl EYE-BOTH .COMPLEX [facility] Non-Formulary Medication (Trifluridine-Tipiracil [Lonsurf]) 1 tab PO BID [facility] Omeprazole (Omeprazole 20 Mg Capsule.) 20 mg PO DAILY@0630 [facility] Last Admin: 12/22/24 06:26 Dose: 20 mg Polyethylene Glycol (Polyethylene Glycol 3350 17 Gm Powd.Pack) 17 gm PO DAILY [facility] Last Admin: 12/22/24 09:09 Dose: 17 gm Prochlorperazine Maleate (Prochlorperazine Maleate 5 Mg Tablet) 5 - 10 mg PO Q6H PRN PRN Reason: Nausea Timolol Maleate (Timolol Maleate 0.5 % Oph Stephanie 5 Ml Drbtl) 1 drop EYE-BOTH BID [facility] Last Admin: 12/22/24 09:29 Dose: 1 drop Trazodone HCl (Trazodone Hcl 50 Mg Tablet) 50 mg PO BEDTIME MRX1 PRN PRN Reason: Insomnia Last Admin: 12/21/24 22:30 Dose: 50 mg Allergies Allergies Allergy/AdvReac Type Severity Reaction Status Date / Time No Known Allergies Allergy Verified 12/19/24 06:08 Assessment & Plan Assessment & Plan (1) Acute reaction to situational stress: Status: Acute Code(s): F43.0 - Acute stress reaction Plan Mr. Cortes is an 79 year-old male with hx of advanced liver/colon cancer who was brought via EMS after he called 911 due to suicide attempt via cutting both wrist (no stitches needed) severe abdominal pain in context of terminal cancer with prognosis of one year left to live. He appears to have accepted the fact that his medical condition is terminal but given excruciating pain and several ED visits with no relief and follow up appointments delayed to see GI he reports he felt he had no other option. He does not report suicidal ideation now. He reports he does not want to be in severe pain and suffering. Seen by hospitalist today who will coordinate additional medical care. May consult GI for additional input. Will hold on adding any medications today until having better idea as to what is going on medically. Will add prn doses of ativan. PLAN 1. Admit to S1, CV, 5 minutes checks 2. continue current medications 3. obtain collateral information 4. aftercare planning. 12/22- Continue tx Reason for continued inpatient stay Substantial Risk for: rapid decompensation and med/psych decompensation Time Spent With Patient Time: Total time managing care of this patient today ____ minutes.
[2024-12-22 20:00] VITALS: BP 160/79; PULSE 95; RESP 18; TEMP 36.4; O2SAT 95
[2024-12-22] MEDS: traZODone HCL 50 MG TABLET PO (22:00)
[2024-12-22 22:14] VITALS: BP 169/79; PULSE 89
--- NOTE | 2024-12-23 05:54 | P.PNPSI_ITS ---
Subjective Subjective Date of Service: 12/23/24 Reason For Visit: Interim History: Pt seen, discussed with team. GI eval scheduled for 12/24/24. Resting, appears comfortable today. Smiling. Team reports no behavioral symptoms of concern. Team reports wrist cuts to be healing. Medication Compliance: Yes Review of Systems Review of Systems Hepatic and Colon Carcinoma- GI Eval scheduled for 12/24/24. Mental Status Exam Mental Status Exam Patient Appearance: Appropriate Patient Orientation: Person Level of Consciousness: Awake and Drowsy Patient Behavior: Appropriate, Cooperative and Fatigued Mood Description: Depressed Affect Description: Flat Ability to Follow Directions: Good Speech Pattern: Spontaneous Speech Depressive Symptoms: Increased Fatigue and Loss of Energy Judgement: Poor Diagnostics Vital Signs (24Hr): Vital Signs - 24 hr 12/22/24 09:00 12/22/24 20:00 12/22/24 22:14 Temperature 97.9 F 97.6 F Pulse Rate 94 95 89 Respiratory Rate 20 18 Blood Pressure 155/75 H 160/79 H 169/79 H Pulse Oximetry 97 95 Oxygen Delivery Method Room Air Room Air BMI result Body Mass Index 27.0 Labs 12/20/24 15:03 12/21/24 07:43 Labs: Laboratory Results - last 48 hr 12/21/24 12/21/24 07:43 20:00 Sodium 136 Potassium 3.7 Chloride 101 Carbon Dioxide 25 Anion Gap 14 BUN 19 H Creatinine 0.76 Estim Creat Clear Calc 78.7 Estimated GFR > 60 Random Glucose 101 Estimat Average Glucose 97 Hemoglobin A1c % 5.0 Calcium 9.2 Total Bilirubin 0.4 AST 32 ALT 20 Alkaline Phosphatase 68 Total Protein 6.8 Albumin 4.0 Triglycerides 126 Cholesterol 120 LDL Cholesterol, Calc 57 HDL Cholesterol 38 L Vitamin B12 627 Folate 12.9 TSH 2.54 Stl C. cayetanensis PCR Not Detected Stool Rotavirus A PCR Not Detected Stl Adenov F 40/41 PCR Not Detected Stool Astrovirus (PCR) Not Detected Stool Campylobacter PCR Not Detected Stool Cryptosporidium PCR Not Detected Stl Sh Tox Pr E STEC PCR Not Detected Stool E coli O157 PCR Not applicable Stl Enterotoxigenic E PCR Not Detected Stool EPEC (PCR) Not Detected Stool EAEC (PCR) Not Detected Stl E. histolytica PCR Not Detected Stool Giardia Lamblia PCR Not Detected Stl P. shigelloides PCR Not Detected Stool Salmonella PCR Not Detected Stool Sapovirus (PCR) Not Detected Stl Shigella/EIEC PCR Not Detected St Y.enterocolitica PCR Not Detected Stool Vibrio (PCR) Not Detected Stl Vibrio cholerae PCR Not Detected Stl Norovirus GI/GII PCR Not Detected C. difficile Tox B Gene NEGATIVE Medications Medications Current Medications Acetaminophen (Acetaminophen 325 Mg Tablet) 650 mg PO Q6H PRN PRN Reason: Headache/Pain, Scale 1-10 Last Admin: 12/22/24 21:59 Dose: 650 mg Al Hydroxide/Mg Hydroxide (Magnesium Hydrox/Alum Hydrox 30 Ml Oral.Susp) 30 ml PO Q6H PRN PRN Reason: Heartburn/Nausea Atorvastatin Calcium (Atorvastatin Calcium 20 Mg Tablet) 20 mg PO DAILY [facility] Last Admin: 12/22/24 09:03 Dose: 20 mg Brimonidine Tartrate (Brimonidine Tartrate 0.2% Oph 5 Ml Bottle) 1 drop EYE- BOTH BID [facility] Last Admin: 12/22/24 22:15 Dose: Not Given Docusate Sodium (Docusate Sodium 100 Mg Capsule) 100 mg PO BID [facility] Last Admin: 12/22/24 22:15 Dose: 100 mg Enoxaparin Sodium (Enoxaparin Sodium 100 Mg/Ml Syringe) 90 mg SUBCUT Q12H [facility] Last Admin: 12/22/24 21:17 Dose: 90 mg Ferrous Sulfate (Ferrous Sulfate 324 Mg Tablet.) 324 mg PO Q48H [facility] Last Admin: 12/22/24 09:04 Dose: 324 mg Hydrocortisone (Hydrocortisone 2.5 % Rectal Cr 30 Gm Tube) 1 appl [place] BID [facility] Last Admin: 12/22/24 22:15 Dose: Not Given Lisinopril (Lisinopril 5 Mg Tablet) 5 mg PO DAILY [facility]; Protocol Last Admin: 12/22/24 09:03 Dose: 5 mg Magnesium Hydroxide (Milk Of Magnesia 30 Ml Oral.Susp) 30 ml PO DAILY PRN PRN Reason: Constipation Metoprolol Tartrate (Metoprolol Tartrate 25 Mg Tablet) 25 mg PO BID [facility]; Protocol Last Admin: 12/22/24 22:14 Dose: 25 mg Non-Formulary Medication (Loteprednol Etabonate [Lotemax]) 0 appl EYE-BOTH .COMPLEX [facility] Non-Formulary Medication (Trifluridine-Tipiracil [Lonsurf]) 1 tab PO BID [facility] Omeprazole (Omeprazole 20 Mg Capsule.Dr) 20 mg PO DAILY@0630 [facility] Last Admin: 12/22/24 06:26 Dose: 20 mg Polyethylene Glycol (Polyethylene Glycol 3350 17 Gm Powd.Pack) 17 gm PO DAILY [facility] Last Admin: 12/22/24 09:09 Dose: 17 gm Prochlorperazine Maleate (Prochlorperazine Maleate 5 Mg Tablet) 5 - 10 mg PO Q6H PRN PRN Reason: Nausea Timolol Maleate (Timolol Maleate 0.5 % Oph Stephanie 5 Ml Drbtl) 1 drop EYE-BOTH BID [facility] Last Admin: 12/22/24 21:20 Dose: 1 drop Trazodone HCl (Trazodone Hcl 50 Mg Tablet) 50 mg PO BEDTIME MRX1 PRN PRN Reason: Insomnia Last Admin: 12/22/24 22:00 Dose: 50 mg Allergies Allergies Allergy/AdvReac Type Severity Reaction Status Date / Time No Known Allergies Allergy Verified 12/19/24 06:08 Assessment & Plan Assessment & Plan (1) Acute reaction to situational stress: Status: Acute Code(s): F43.0 - Acute stress reaction Plan Mr. Cortes is an 79 year-old male with hx of advanced liver/colon cancer who was brought via EMS after he called 911 due to suicide attempt via cutting both wrist (no stitches needed) severe abdominal pain in context of terminal cancer with prognosis of one year left to live. He appears to have accepted the fact that his medical condition is terminal but given excruciating pain and several ED visits with no relief and follow up appointments delayed to see GI he reports he felt he had no other option. He does not report suicidal ideation now. He reports he does not want to be in severe pain and suffering. Seen by hospitalist today who will coordinate additional medical care. May consult GI for additional input. Will hold on adding any medications today until having better idea as to what is going on medically. Will add prn doses of ativan. PLAN 1. Admit to S1, CV, 5 minutes checks 2. continue current medications 3. obtain collateral information 4. aftercare planning. 12/22- Continue tx 12/23- Continue tx Reason for continued inpatient stay Substantial Risk for: rapid decompensation and med/psych decompensation Time Spent With Patient Time: Total time managing care of this patient today ____ minutes.
[2024-12-23] MEDS: Omeprazole 20 MG CAPSULE.DR PO (06:13)
[2024-12-23 08:13] VITALS: BP 179/92; PULSE 83; RESP 16; TEMP 36.4; O2SAT 95
[2024-12-23] MEDS: lisinopriL 5 MG TABLET PO (08:15)
[2024-12-23] MEDS: Metoprolol Tartrate 25 MG TABLET PO ×2 (08:15→21:13)
[2024-12-23] MEDS: polyethylene glycoL 3350 17 GM POWD.PACK PO (08:16)
[2024-12-23] MEDS: Atorvastatin Calcium 20 MG TABLET PO (08:16)
[2024-12-23] MEDS: Docusate Sodium 100 MG CAPSULE PO ×2 (08:16→21:15)
[2024-12-23] MEDS: Brimonidine Tartrate 0.2% Oph 5 ML BOTTLE 1 DROP EYE-BOTH ×2 (08:18→21:17)
[2024-12-23] MEDS: Enoxaparin Sodium 100 MG/ML SYRINGE 90 MG SUBCUT ×2 (08:18→21:16)
[2024-12-23] MEDS: Acetaminophen 325 MG TABLET 650 MG PO ×2 (08:47→21:12)
[2024-12-23] MEDS: timoloL maleate 0.5 % Oph Sol 5 ML DRBTL 1 DROP EYE-BOTH ×2 (08:47→21:16)
--- NOTE | 2024-12-23 12:07 | PM.GICN ---
History of Present Illness Data of Consult Service Date: 12/23/24 Primary Care Provider: Unknown Physician HPI Reason for consult: abdominal pain 79-year-old male with a hx of metastatic colon cancer to the liver, anemia, cataracts, history of CVA with no residual effects, hyperlipidemia, hypertensive disorder, paroxysmal AFib who I am seeing for assessment for intermittent abdominal pain. Patient is known to have CRC mostly ascending colon. The cancer continues to progress in spite of chemo and he has been depressed and suicidal due to this and admitted to psych unit for this. He admits to issues wt constipation and mid abdominal crescendo and decrescendo abdominal pain for at least 2-3 weeks now. It is not present right now, relieved by tylenol and passing stool and gas. He denies nausea or vomiting. appetite is poor. NO blood in stool. Imaging not available to me here. He takes miralax and colace but he does not find it effective Review of Systems Review of Systems: Constitutional : + Weight loss, No Fever, No Chills ENT/Mouth : No sore throat, No Rhinorrhea Eyes: No Swelling, No Redness Cardiovascular : No Chest Pain, No SOB, No Edema Respiratory : No Cough, No Sputum, No Wheezing Gastrointestinal : see HPI Genitourinary : NO Dysuria, No Urinary Frequency, No Hematuria, No Urgency Musculoskeletal : NO joint pain, No Myalgias, No Joint Swelling Skin : No Skin Lesions, No rash Neuro : + Weakness, No Numbness, No Dizziness, No Headache Psych : No Anxiety/Panic, No Depression Heme/Lymph: No Bruising, No Lymphadenopathy Endocrine : No Polyuria, No Polydipsia All other systems reviewed and are negative. 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 If so, by whom?: No Do you feel safe in your current relationship?: No Current Relationship Is there a partner from a previous relationship who is making you feel unsafe now?: No Are you made to feel afraid or neglected: No Advance Directives: No Advance Directives Information Provided: Yes Do you have thoughts of harming others: None Do you have a plan to hurt others: No Plan Recently lost weight without trying: Unsure Eating poorly because of decreased appetite: Yes Poor oral hygiene: No service: No Sexual orientation: Straight/Heterosexual Meds Allergies Allergy/AdvReac Type Severity Reaction Status Date / Time No Known Allergies Allergy Verified 12/19/24 06:08 Active Medications: Current Medications Acetaminophen (Acetaminophen 325 Mg Tablet) 650 mg PO Q6H PRN PRN Reason: Headache/Pain, Scale 1-10 Last Admin: 12/23/24 08:47 Dose: 650 mg Al Hydroxide/Mg Hydroxide (Magnesium Hydrox/Alum Hydrox 30 Ml Oral.Susp) 30 ml PO Q6H PRN PRN Reason: Heartburn/Nausea Atorvastatin Calcium (Atorvastatin Calcium 20 Mg Tablet) 20 mg PO DAILY [facility] Last Admin: 12/23/24 08:16 Dose: 20 mg Brimonidine Tartrate (Brimonidine Tartrate 0.2% Oph 5 Ml Bottle) 1 drop EYE-BOTH BID [facility] Last Admin: 12/23/24 08:18 Dose: 1 drop Docusate Sodium (Docusate Sodium 100 Mg Capsule) 100 mg PO BID [facility] Last Admin: 12/23/24 08:16 Dose: 100 mg Enoxaparin Sodium (Enoxaparin Sodium 100 Mg/Ml Syringe) 90 mg SUBCUT Q12H [facility] Last Admin: 12/23/24 08:18 Dose: 90 mg Ferrous Sulfate (Ferrous Sulfate 324 Mg Tablet.Dr) 324 mg PO Q48H [facility] Last Admin: 12/22/24 09:04 Dose: 324 mg Hydrocortisone (Hydrocortisone 2.5 % Rectal Cr 30 Gm Tube) 1 appl [place] BID [facility] Last Admin: 12/23/24 08:24 Dose: Not Given Lisinopril (Lisinopril 5 Mg Tablet) 5 mg PO DAILY [facility]; Protocol Last Admin: 12/23/24 08:15 Dose: 5 mg Magnesium Hydroxide (Milk Of Magnesia 30 Ml Oral.Susp) 30 ml PO DAILY PRN PRN Reason: Constipation Metoprolol Tartrate (Metoprolol Tartrate 25 Mg Tablet) 25 mg PO BID [facility]; Protocol Last Admin: 12/23/24 08:15 Dose: 25 mg Non-Formulary Medication (Loteprednol Etabonate [Lotemax]) 0 appl EYE-BOTH .COMPLEX [facility] Non-Formulary Medication (Trifluridine-Tipiracil [Lonsurf]) 1 tab PO BID [facility] Omeprazole (Omeprazole 20 Mg Capsule.Dr) 20 mg PO DAILY@0630 [facility] Last Admin: 12/23/24 06:13 Dose: 20 mg Polyethylene Glycol (Polyethylene Glycol 3350 17 Gm Powd.Pack) 17 gm PO DAILY [facility] Last Admin: 12/23/24 08:16 Dose: 17 gm Prochlorperazine Maleate (Prochlorperazine Maleate 5 Mg Tablet) 5 - 10 mg PO Q6H PRN PRN Reason: Nausea Timolol Maleate (Timolol Maleate 0.5 % Oph Stephanie 5 Ml Drbtl) 1 drop EYE-BOTH BID [facility] Last Admin: 12/23/24 08:47 Dose: 1 drop Trazodone HCl (Trazodone Hcl 50 Mg Tablet) 50 mg PO BEDTIME MRX1 PRN PRN Reason: Insomnia Last Admin: 12/22/24 22:00 Dose: 50 mg Home Medications ?Medication ?Instructions ?Recorded ?Confirmed ?Last Taken ?Type brimonidine 0.2 %-timolol 0.5 % 1 drp ophthalmic (eye) BID 12/19/24 12/19/24 Unknown History eye drops docusate sodium 100 mg capsule 100 mg PO BID 12/19/24 12/19/24 Unknown History enoxaparin 100 mg/mL subcutaneous 90 mg subcut Q12H 12/19/24 12/19/24 Unknown History syringe ferrous gluconate 324 mg (38 mg 324 mg PO Q48H 12/19/24 12/19/24 Unknown History iron) tablet hydrocortisone 2.5 % topical cream 1 appl OR BID 12/19/24 12/19/24 Unknown History with perineal applicator (Procto-Med HC) lisinopril 5 mg tablet 5 mg PO DAILY 12/19/24 12/19/24 Unknown History loteprednol etabonate 0.5 % eye See Rx Instructions .Route .COMPLEX 12/19/24 12/19/24 Unknown History ointment (Lotemax) metoprolol tartrate 25 mg tablet 25 mg PO BID 12/19/24 12/19/24 Unknown History pantoprazole 40 mg tablet,delayed 40 mg PO DAILY@0630 12/19/24 12/19/24 Unknown History release polyethylene glycol 3350 17 gram 17 g PO DAILY 12/19/24 12/19/24 Unknown History oral powder packet (Miralax) prochlorperazine maleate 5 mg 5 - 10 mg PO Q6H PRN Nausea 12/19/24 12/19/24 Unknown History tablet (Compazine) simvastatin 40 mg tablet 40 mg PO DAILY 12/19/24 12/19/24 Unknown History trifluridine 15 mg-tipiracil 6.14 1 tab PO BID 12/19/24 12/19/24 Unknown History mg tablet (Lonsurf) Physical Exam Vital Signs: Vital Signs: Last Vital Signs Temp 97.5 F 12/23/24 08:13 Pulse 83 12/23/24 08:13 Resp 16 12/23/24 08:13 BP 179/92 H 12/23/24 08:13 Pulse Ox 95 12/23/24 08:13 O2 Del Method Room Air 12/23/24 08:13 BMI result Body Mass Index 27.0 EXAM: GENERAL: The patient is thin and frail VITAL SIGNS:see workflow HEENT: Nonicteric sclerae, PERRLA, EOMI. Oropharynx clear. Moist mucous membranes. Conjunctivae appear well perfused. No thyroid mass. CHEST: Chest wall is nontender. HEART: Regular rate and rhythm without murmurs. LUNGS: Clear to auscultation bilaterally. ABDOMEN: Soft, positive bowel sounds, nontender, no organomegaly.no flank tenderness SKIN: No rash, no excessive bruising, petechiae, or purpura. NEUROLOGIC: Cranial nerves II-XII intact without motor/sensory deficit. Psych: normal affect Results Labs 12/20/24 15:03 12/21/24 07:43 Assessment and Plan (1) Metastatic colon cancer to liver: Status: Acute Plan 1/Abdominal pain in setting of CRC - with constipation, relieved by passing gas and stool--most likel his pain is from stool build up--he is not on narcotics PLAN: 1/ recommend trial of marinol to help with appetite or consider mirtazepine 2/ LOW FIBER diet, stop metamucil 3/ KUB 4/ add linaclotide, if can't get in house then MOM or lactulose and linaclotide as o/p Procedures Date of Service Date of Service: 12/24/24
[2024-12-23 20:00] VITALS: BP 124/85; PULSE 84; RESP 18; TEMP 36.6; O2SAT 97
[2024-12-23 21:13] VITALS: BP 124/85; PULSE 84
[2024-12-23] MEDS: Mirtazapine 7.5 MG TABLET 3.75 MG PO (21:14)
[2024-12-23] MEDS: traZODone HCL 50 MG TABLET PO (21:15)
[2024-12-24] MEDS: Acetaminophen 325 MG TABLET 650 MG PO ×3 (04:55→20:10)
[2024-12-24] MEDS: Omeprazole 20 MG CAPSULE.DR PO (06:01)
[2024-12-24 08:00] VITALS: BP 156/78; PULSE 82; RESP 16; TEMP 36.8; O2SAT 98
[2024-12-24] MEDS: Brimonidine Tartrate 0.2% Oph 5 ML BOTTLE 1 DROP EYE-BOTH ×2 (08:19→20:10)
[2024-12-24] MEDS: timoloL maleate 0.5 % Oph Sol 5 ML DRBTL 1 DROP EYE-BOTH ×2 (08:19→20:10)
[2024-12-24] MEDS: Enoxaparin Sodium 100 MG/ML SYRINGE 90 MG SUBCUT ×2 (08:19→20:13)
[2024-12-24] MEDS: polyethylene glycoL 3350 17 GM POWD.PACK PO (08:19)
[2024-12-24] MEDS: Lactulose 20 GM/30 ML SOLUTION 10 GM PO (08:19)
[2024-12-24] MEDS: Hydrocortisone 2.5 % Rectal Cr 30 GM TUBE 1 APPL PR (08:19)
[2024-12-24] MEDS: Metoprolol Tartrate 25 MG TABLET PO ×2 (08:20→20:11)
[2024-12-24] MEDS: Atorvastatin Calcium 20 MG TABLET PO (08:20)
[2024-12-24] MEDS: Ferrous Sulfate 324 MG TABLET.DR PO (08:20)
[2024-12-24] MEDS: Docusate Sodium 100 MG CAPSULE PO ×2 (08:20→20:12)
[2024-12-24] MEDS: lisinopriL 5 MG TABLET PO (08:20)
[2024-12-24 08:21] LABS: Hematocrit 27.4 % (42.0-52.0); Hemoglobin 8.9 g/dl (14.0-18.0); Mean Corpuscular HGB Conc 32.5 g/dl (31.0-36.0); Mean Corpuscular Volume 86.2 fL (80.0-98.0); Mean Platelet Volume 9.5 fL (9.4-12.4); Platelet Count 158 X10*3/uL (160-400); Red Blood Count 3.18 X10*6/uL (4.60-5.80); Red Cell Distribution Width 15.1 % (11.0-16.0); White Blood Count 5.3 X10*3/uL (4.8-10.8)
--- NOTE | 2024-12-24 08:38 | MHC.CLN ---
Addendum entered by Mady Herrera RD 12/24/24 13:51: PO INTAKE VARIABLE, BITES - 100%. MONITOR FOR DIET TOLERANCE AND PO INTAKE. Original Note: NUTRITION DIET CHANGED TO LOW FIBER PER GI REC. CONTINUE ENSURE TID TO PROVIDE 1050 KCALS, 60 G PROTEIN.
[2024-12-24] MEDS: LORazepam 0.5 MG TABLET PO (10:31)
--- NOTE | 2024-12-24 11:32 | HO.PSYCHPN ---
Subjective Subjective Date of Service: 12/24/24 Reason For Visit: SA Subjective Notes: Conditional Voluntary Interim History: Pt reports abdominal pain starting all over again. He rates 5 out of 10 pain. He reports is in middle of abdomen, feels sharp and cramps at times. Seen by GI yesterday. Given tylenol, and added low dose ativan 0.5mg po once. later reported same, but was able to eat better. He continues to report that he is not suicidal but does not want to be in physical pain. He has accepted prognosis of cancer diagnosis and at peace with it, but would like to work on quality of life/ pain management. will reach out to oncologist to coordinate. Review of Systems Review of Systems Hepatic and Colon Carcinoma- GI Eval scheduled for 12/24/24. Yes all other systems are reviewed and are negative Mental Status Exam Mental Status Exam Narrative: Appearance: wearing hospital gown, fair hygiene in NAD Behavior: cooperative, friendly PSychomotor: no agitation or retardation noted Speech: clear, normal rate/rhythm/volume, spontaneous TP: linear TC: not wanting to be in excrutiating pain Mood: better today Affect: congruent SI: none HI: none VH/AH: none Delusions: none Insight/judgment: intact x 2. memory/cog: alert, oriented x 4. grossly intact to conversational testing but not formally tested. Diagnostics Vital Signs (24Hr): Vital Signs - 24 hr 12/23/24 20:00 12/23/24 21:13 12/24/24 08:00 Temperature 97.9 F 98.2 F Pulse Rate 84 84 82 Respiratory Rate 18 16 Blood Pressure 124/85 124/85 156/78 H Pulse Oximetry 97 98 Oxygen Delivery Method Room Air Room Air BMI result Body Mass Index 27.0 Labs 12/24/24 08:10 12/21/24 07:43 Labs: Laboratory Results - last 48 hr 12/21/24 12/24/24 20:00 08:10 WBC 5.3 RBC 3.18 L Hgb 8.9 L Hct 27.4 L MCV 86.2 MCH 28.0 MCHC 32.5 RDW 15.1 Plt Count 158 L MPV 9.5 Absolute Nucleated RBC 0.000 Nucleated RBC % (auto) 0.0 Stl C. cayetanensis PCR Not Detected Stool Rotavirus A PCR Not Detected Stl Adenov F 40/41 PCR Not Detected Stool Astrovirus (PCR) Not Detected Stool Campylobacter PCR Not Detected Stool Cryptosporidium PCR Not Detected Stl Sh Tox Pr E STEC PCR Not Detected Stool E coli O157 PCR Not applicable Stl Enterotoxigenic E PCR Not Detected Stool EPEC (PCR) Not Detected Stool EAEC (PCR) Not Detected Stl E. histolytica PCR Not Detected Stool Giardia Lamblia PCR Not Detected Stl P. shigelloides PCR Not Detected Stool Salmonella PCR Not Detected Stool Sapovirus (PCR) Not Detected Stl Shigella/EIEC PCR Not Detected St Y.enterocolitica PCR Not Detected Stool Vibrio (PCR) Not Detected Stl Vibrio cholerae PCR Not Detected Stl Norovirus GI/GII PCR Not Detected Medications Medications Current Medications Acetaminophen (Acetaminophen 325 Mg Tablet) 650 mg PO Q6H PRN PRN Reason: Headache/Pain, Scale 1-10 Last Admin: 12/24/24 10:31 Dose: 650 mg Al Hydroxide/Mg Hydroxide (Magnesium Hydrox/Alum Hydrox 30 Ml Oral.Susp) 30 ml PO Q6H PRN PRN Reason: Heartburn/Nausea Atorvastatin Calcium (Atorvastatin Calcium 20 Mg Tablet) 20 mg PO DAILY [facility] Last Admin: 12/24/24 08:20 Dose: 20 mg Brimonidine Tartrate (Brimonidine Tartrate 0.2% Oph 5 Ml Bottle) 1 drop EYE-BOTH BID [facility] Last Admin: 12/24/24 08:19 Dose: 1 drop Docusate Sodium (Docusate Sodium 100 Mg Capsule) 100 mg PO BID [facility] Last Admin: 12/24/24 08:20 Dose: 100 mg Enoxaparin Sodium (Enoxaparin Sodium 100 Mg/Ml Syringe) 90 mg SUBCUT Q12H [facility] Last Admin: 12/24/24 08:19 Dose: 90 mg Ferrous Sulfate (Ferrous Sulfate 324 Mg Tablet.Dr) 324 mg PO Q48H [facility] Last Admin: 12/24/24 08:20 Dose: 324 mg Hydrocortisone (Hydrocortisone 2.5 % Rectal Cr 30 Gm Tube) 1 appl [place] BID [facility] Last Admin: 12/24/24 08:19 Dose: 1 appl Lactulose (Lactulose 20 Gm/30 Ml Solution) 10 gm PO DAILY [facility] Last Admin: 12/24/24 08:19 Dose: 10 gm Lisinopril (Lisinopril 5 Mg Tablet) 5 mg PO DAILY [facility]; Protocol Last Admin: 12/24/24 08:20 Dose: 5 mg Magnesium Hydroxide (Milk Of Magnesia 30 Ml Oral.Susp) 30 ml PO DAILY PRN PRN Reason: Constipation Metoprolol Tartrate (Metoprolol Tartrate 25 Mg Tablet) 25 mg PO BID [facility]; Protocol Last Admin: 12/24/24 08:20 Dose: 25 mg Mirtazapine (Mirtazapine 7.5 Mg Tablet) 7.5 mg PO BEDTIME [facility] Non-Formulary Medication (Loteprednol Etabonate [Lotemax]) 0 appl EYE-BOTH .COMPLEX [facility] Non-Formulary Medication (Trifluridine-Tipiracil [Lonsurf]) 1 tab PO BID [facility] Omeprazole (Omeprazole 20 Mg Capsule.Dr) 20 mg PO DAILY@0630 [facility] Last Admin: 12/24/24 06:01 Dose: 20 mg Polyethylene Glycol (Polyethylene Glycol 3350 17 Gm Powd.Pack) 17 gm PO DAILY [facility] Last Admin: 12/24/24 08:19 Dose: 17 gm Prochlorperazine Maleate (Prochlorperazine Maleate 5 Mg Tablet) 5 - 10 mg PO Q6H PRN PRN Reason: Nausea Timolol Maleate (Timolol Maleate 0.5 % Oph Stephanie 5 Ml Drbtl) 1 drop EYE-BOTH BID [facility] Last Admin: 12/24/24 08:19 Dose: 1 drop Trazodone HCl (Trazodone Hcl 50 Mg Tablet) 50 mg PO BEDTIME MRX1 PRN PRN Reason: Insomnia Last Admin: 12/23/24 21:15 Dose: 50 mg Allergies Allergies Allergy/AdvReac Type Severity Reaction Status Date / Time No Known Allergies Allergy Verified 12/19/24 06:08 Assessment & Plan Assessment & Plan (1) Acute reaction to situational stress: Status: Acute Code(s): F43.0 - Acute stress reaction (2) Metastatic colon cancer to liver: Status: Acute Code(s): C18.9 - Malignant neoplasm of colon, unspecified; C78.7 - Secondary malignant neoplasm of liver and intrahepatic bile duct Plan 1/Abdominal pain in setting of CRC - with constipation, relieved by passing gas and stool--most likel his pain is from stool build up--he is not on narcotics PLAN: 1/ recommend trial of marinol to help with appetite or consider mirtazepine 2/ LOW FIBER diet, stop metamucil 3/ KUB 4/ add linaclotide, if can't get in house then MOM or lactulose and linaclotide as o/p 12/24 continue tx. increase remeron to 15mg po qhs, help with mood/appetite. given one time dose of ativan 0.5mg po fair effect, but may schedule or add prn doses depending on response and pt's preference. Reason for continued inpatient stay Substantial Risk for: inability to function Time Spent With Patient Time: Total time managing care of this patient today ____ minutes.
[2024-12-24 20:00] VITALS: BP 163/77; PULSE 82; RESP 20; TEMP 36.6; O2SAT 96
[2024-12-24 20:11] VITALS: BP 163/77; PULSE 82
[2024-12-24] MEDS: traZODone HCL 50 MG TABLET PO (20:12)
[2024-12-24] MEDS: Mirtazapine 7.5 MG TABLET PO (20:12)
[2024-12-25] MEDS: Acetaminophen 325 MG TABLET 650 MG PO ×2 (02:09→16:46)
[2024-12-25] MEDS: Omeprazole 20 MG CAPSULE.DR PO (06:04)
[2024-12-25 08:00] VITALS: BP 130/82; PULSE 84; RESP 18; TEMP 36.7; O2SAT 99
[2024-12-25] MEDS: Enoxaparin Sodium 100 MG/ML SYRINGE 90 MG SUBCUT ×2 (08:57→20:13)
[2024-12-25] MEDS: Lactulose 20 GM/30 ML SOLUTION 10 GM PO (09:00)
[2024-12-25] MEDS: polyethylene glycoL 3350 17 GM POWD.PACK PO (09:01)
[2024-12-25] MEDS: Atorvastatin Calcium 20 MG TABLET PO (09:03)
[2024-12-25] MEDS: lisinopriL 5 MG TABLET PO (09:03)
[2024-12-25] MEDS: Metoprolol Tartrate 25 MG TABLET PO ×2 (09:03→20:03)
[2024-12-25] MEDS: Docusate Sodium 100 MG CAPSULE PO ×2 (09:03→20:03)
[2024-12-25] MEDS: timoloL maleate 0.5 % Oph Sol 5 ML DRBTL 1 DROP EYE-BOTH ×2 (09:04→20:12)
[2024-12-25] MEDS: Brimonidine Tartrate 0.2% Oph 5 ML BOTTLE 1 DROP EYE-BOTH (09:04)
--- NOTE | 2024-12-25 10:15 | HO.PSYCHPN ---
Subjective Subjective Date of Service: 12/25/24 Reason For Visit: SA Subjective Notes: Conditional Voluntary Interim History: Pt slept through the night. He reports less abdominal pain. He reports poor appetite. He has been more visble on the unit. No behavioral concerns. He denies SI/HI. No behavioral concerns. continues to report tylenol effective. Review of Systems Review of Systems Hepatic and Colon Carcinoma- GI Eval scheduled for 12/24/24. Yes all other systems are reviewed and are negative Mental Status Exam Mental Status Exam Narrative: Appearance: wearing hospital gown, fair hygiene in NAD Behavior: cooperative, friendly PSychomotor: no agitation or retardation noted Speech: clear, normal rate/rhythm/volume, spontaneous TP: linear TC: not wanting to be in excrutiating pain Mood: better today Affect: congruent SI: none HI: none VH/AH: none Delusions: none Insight/judgment: intact x 2. memory/cog: alert, oriented x 4. grossly intact to conversational testing but not formally tested. Diagnostics Vital Signs (24Hr): Vital Signs - 24 hr 12/24/24 20:00 12/24/24 20:11 Temperature 97.9 F Pulse Rate 82 82 Respiratory Rate 20 Blood Pressure 163/77 H 163/77 H Pulse Oximetry 96 Oxygen Delivery Method Room Air BMI result Body Mass Index 27.0 Labs 12/24/24 08:10 12/21/24 07:43 Labs: Laboratory Results - last 48 hr 12/24/24 08:10 WBC 5.3 RBC 3.18 L Hgb 8.9 L Hct 27.4 L MCV 86.2 MCH 28.0 MCHC 32.5 RDW 15.1 Plt Count 158 L MPV 9.5 Absolute Nucleated RBC 0.000 Nucleated RBC % (auto) 0.0 Medications Medications Current Medications Acetaminophen (Acetaminophen 325 Mg Tablet) 650 mg PO Q6H PRN PRN Reason: Headache/Pain, Scale 1-10 Last Admin: 12/25/24 02:09 Dose: 650 mg Al Hydroxide/Mg Hydroxide (Magnesium Hydrox/Alum Hydrox 30 Ml Oral.Susp) 30 ml PO Q6H PRN PRN Reason: Heartburn/Nausea Atorvastatin Calcium (Atorvastatin Calcium 20 Mg Tablet) 20 mg PO DAILY [facility] Last Admin: 12/25/24 09:03 Dose: 20 mg Brimonidine Tartrate (Brimonidine Tartrate 0.2% Oph 5 Ml Bottle) 1 drop EYE-BOTH BID [facility] Last Admin: 12/25/24 09:04 Dose: 1 drop Docusate Sodium (Docusate Sodium 100 Mg Capsule) 100 mg PO BID [facility] Last Admin: 12/25/24 09:03 Dose: 100 mg Enoxaparin Sodium (Enoxaparin Sodium 100 Mg/Ml Syringe) 90 mg SUBCUT Q12H [facility] Last Admin: 12/25/24 08:57 Dose: 90 mg Ferrous Sulfate (Ferrous Sulfate 324 Mg Tablet.) 324 mg PO Q48H [facility] Last Admin: 12/24/24 08:20 Dose: 324 mg Hydrocortisone (Hydrocortisone 2.5 % Rectal Cr 30 Gm Tube) 1 appl [place] BID [facility] Last Admin: 12/25/24 09:06 Dose: Not Given Lactulose (Lactulose 20 Gm/30 Ml Solution) 10 gm PO DAILY [facility] Last Admin: 12/25/24 09:00 Dose: 10 gm Lisinopril (Lisinopril 5 Mg Tablet) 5 mg PO DAILY [facility]; Protocol Last Admin: 12/25/24 09:03 Dose: 5 mg Magnesium Hydroxide (Milk Of Magnesia 30 Ml Oral.Susp) 30 ml PO DAILY PRN PRN Reason: Constipation Metoprolol Tartrate (Metoprolol Tartrate 25 Mg Tablet) 25 mg PO BID [facility]; Protocol Last Admin: 12/25/24 09:03 Dose: 25 mg Mirtazapine (Mirtazapine 7.5 Mg Tablet) 7.5 mg PO BEDTIME [facility] Last Admin: 12/24/24 20:12 Dose: 7.5 mg Omeprazole (Omeprazole 20 Mg Capsule.) 20 mg PO DAILY@0630 [facility] Last Admin: 12/25/24 06:04 Dose: 20 mg Polyethylene Glycol (Polyethylene Glycol 3350 17 Gm Powd.Pack) 17 gm PO DAILY [facility] Last Admin: 12/25/24 09:01 Dose: 17 gm Prochlorperazine Maleate (Prochlorperazine Maleate 5 Mg Tablet) 5 - 10 mg PO Q6H PRN PRN Reason: Nausea Timolol Maleate (Timolol Maleate 0.5 % Oph Stephanie 5 Ml Drbtl) 1 drop EYE-BOTH BID [facility] Last Admin: 12/25/24 09:04 Dose: 1 drop Trazodone HCl (Trazodone Hcl 50 Mg Tablet) 50 mg PO BEDTIME MRX1 PRN PRN Reason: Insomnia Last Admin: 12/24/24 20:12 Dose: 50 mg Allergies Allergies Allergy/AdvReac Type Severity Reaction Status Date / Time No Known Allergies Allergy Verified 12/19/24 06:08 Assessment & Plan Assessment & Plan (1) Acute reaction to situational stress: Status: Acute Code(s): F43.0 - Acute stress reaction (2) Metastatic colon cancer to liver: Status: Acute Code(s): C18.9 - Malignant neoplasm of colon, unspecified; C78.7 - Secondary malignant neoplasm of liver and intrahepatic bile duct Plan 1/Abdominal pain in setting of CRC - with constipation, relieved by passing gas and stool--most likel his pain is from stool build up--he is not on narcotics PLAN: 1/ recommend trial of marinol to help with appetite or consider mirtazepine 2/ LOW FIBER diet, stop metamucil 3/ KUB 4/ add linaclotide, if can't get in house then MOM or lactulose and linaclotide as o/p 12/24 continue tx. increase remeron to 15mg po qhs, help with mood/appetite. given one time dose of ativan 0.5mg po fair effect, but may schedule or add prn doses depending on response and pt's preference. 12/25 continue tx. Reason for continued inpatient stay Substantial Risk for: inability to function Time Spent With Patient Time: Total time managing care of this patient today ____ minutes.
[2024-12-25] MEDS: Milk of Magnesia 30 ML ORAL.SUSP PO (16:46)
[2024-12-25 20:00] VITALS: BP 147/70; PULSE 85; RESP 18; TEMP 36.5; O2SAT 96
[2024-12-25] MEDS: Mirtazapine 7.5 MG TABLET PO (20:02)
[2024-12-25 20:03] VITALS: BP 147/70; PULSE 85
[2024-12-26] MEDS: Acetaminophen 325 MG TABLET 650 MG PO ×3 (01:51→18:10)
[2024-12-26] MEDS: traZODone HCL 50 MG TABLET PO ×2 (01:51→20:48)
[2024-12-26] MEDS: Omeprazole 20 MG CAPSULE.DR PO (06:30)
[2024-12-26 08:00] VITALS: BP 120/66; PULSE 98; RESP 16; TEMP 36.9; O2SAT 97
[2024-12-26] MEDS: polyethylene glycoL 3350 17 GM POWD.PACK PO (08:04)
[2024-12-26] MEDS: Docusate Sodium 100 MG CAPSULE PO ×2 (08:04→20:49)
[2024-12-26] MEDS: lisinopriL 5 MG TABLET PO (08:04)
[2024-12-26] MEDS: Lactulose 20 GM/30 ML SOLUTION 10 GM PO (08:04)
[2024-12-26] MEDS: Enoxaparin Sodium 100 MG/ML SYRINGE 90 MG SUBCUT ×2 (08:04→20:49)
[2024-12-26] MEDS: Metoprolol Tartrate 25 MG TABLET PO ×2 (08:04→20:48)
[2024-12-26] MEDS: Atorvastatin Calcium 20 MG TABLET PO (08:04)
[2024-12-26] MEDS: Ferrous Sulfate 324 MG TABLET.DR PO (08:04)
[2024-12-26] MEDS: Brimonidine Tartrate 0.2% Oph 5 ML BOTTLE 1 DROP EYE-BOTH ×2 (08:09→20:48)
[2024-12-26] MEDS: timoloL maleate 0.5 % Oph Sol 5 ML DRBTL 1 DROP EYE-BOTH ×2 (08:09→20:48)
--- NOTE | 2024-12-26 10:15 | HO.PSYCHPN ---
Subjective Subjective Date of Service: 12/26/24 Reason For Visit: SA Subjective Notes: Conditional Voluntary Interim History: Pt slept through the night. He reports intermittent episode of abdominal pain. He currently reports pain of 4 out of 10 but worries that it may get worse. He does report at times that tylenol helps. He denied SI/HI. He reports he feels tired in general, does not want to go out of his room as often. Encouraged to do so mainly to help with sleep. Medication Compliance: Yes Diagnostics Vital Signs (24Hr): Vital Signs - 24 hr 12/25/24 20:00 12/25/24 20:03 12/26/24 08:00 Temperature 97.7 F 98.5 F Pulse Rate 85 85 98 Respiratory Rate 18 16 Blood Pressure 147/70 H 147/70 H 120/66 Pulse Oximetry 96 97 Oxygen Delivery Method Room Air Room Air BMI result Body Mass Index 27.0 Labs 12/24/24 08:10 12/21/24 07:43 Medications Medications Current Medications Acetaminophen (Acetaminophen 325 Mg Tablet) 650 mg PO Q6H PRN PRN Reason: Headache/Pain, Scale 1-10 Last Admin: 12/26/24 01:51 Dose: 650 mg Al Hydroxide/Mg Hydroxide (Magnesium Hydrox/Alum Hydrox 30 Ml Oral.Susp) 30 ml PO Q6H PRN PRN Reason: Heartburn/Nausea Atorvastatin Calcium (Atorvastatin Calcium 20 Mg Tablet) 20 mg PO DAILY [facility] Last Admin: 12/26/24 08:04 Dose: 20 mg Brimonidine Tartrate (Brimonidine Tartrate 0.2% Oph 5 Ml Bottle) 1 drop EYE-BOTH BID [facility] Last Admin: 12/26/24 08:09 Dose: 1 drop Docusate Sodium (Docusate Sodium 100 Mg Capsule) 100 mg PO BID [facility] Last Admin: 12/26/24 08:04 Dose: 100 mg Enoxaparin Sodium (Enoxaparin Sodium 100 Mg/Ml Syringe) 90 mg SUBCUT Q12H [facility] Last Admin: 12/26/24 08:04 Dose: 90 mg Ferrous Sulfate (Ferrous Sulfate 324 Mg Tablet.Dr) 324 mg PO Q48H [facility] Last Admin: 12/26/24 08:04 Dose: 324 mg Hydrocortisone (Hydrocortisone 2.5 % Rectal Cr 30 Gm Tube) 1 appl [place] BID [facility] Last Admin: 12/26/24 08:06 Dose: Not Given Lactulose (Lactulose 20 Gm/30 Ml Solution) 10 gm PO DAILY [facility] Last Admin: 12/26/24 08:04 Dose: 10 gm Lisinopril (Lisinopril 5 Mg Tablet) 5 mg PO DAILY [facility]; Protocol Last Admin: 12/26/24 08:04 Dose: 5 mg Magnesium Hydroxide (Milk Of Magnesia 30 Ml Oral.Susp) 30 ml PO DAILY PRN PRN Reason: Constipation Last Admin: 12/25/24 16:46 Dose: 30 ml Metoprolol Tartrate (Metoprolol Tartrate 25 Mg Tablet) 25 mg PO BID [facility]; Protocol Last Admin: 12/26/24 08:04 Dose: 25 mg Mirtazapine (Mirtazapine 7.5 Mg Tablet) 7.5 mg PO BEDTIME [facility] Last Admin: 12/25/24 20:02 Dose: 7.5 mg Omeprazole (Omeprazole 20 Mg Capsule.Dr) 20 mg PO DAILY@0630 [facility] Last Admin: 12/26/24 06:30 Dose: 20 mg Polyethylene Glycol (Polyethylene Glycol 3350 17 Gm Powd.Pack) 17 gm PO DAILY [facility] Last Admin: 12/26/24 08:04 Dose: 17 gm Prochlorperazine Maleate (Prochlorperazine Maleate 5 Mg Tablet) 5 - 10 mg PO Q6H PRN PRN Reason: Nausea Timolol Maleate (Timolol Maleate 0.5 % Oph Stephanie 5 Ml Drbtl) 1 drop EYE-BOTH BID [facility] Last Admin: 12/26/24 08:09 Dose: 1 drop Trazodone HCl (Trazodone Hcl 50 Mg Tablet) 50 mg PO BEDTIME MRX1 PRN PRN Reason: Insomnia Last Admin: 12/26/24 01:51 Dose: 50 mg Allergies Allergies Allergy/AdvReac Type Severity Reaction Status Date / Time No Known Allergies Allergy Verified 12/19/24 06:08 Assessment & Plan Assessment & Plan (1) Acute reaction to situational stress: Status: Acute Code(s): F43.0 - Acute stress reaction (2) Metastatic colon cancer to liver: Status: Acute Code(s): C18.9 - Malignant neoplasm of colon, unspecified; C78.7 - Secondary malignant neoplasm of liver and intrahepatic bile duct Plan 1/Abdominal pain in setting of CRC - with constipation, relieved by passing gas and stool--most likel his pain is from stool build up--he is not on narcotics PLAN: 1/ recommend trial of marinol to help with appetite or consider mirtazepine 2/ LOW FIBER diet, stop metamucil 3/ KUB 4/ add linaclotide, if can't get in house then MOM or lactulose and linaclotide as o/p 12/24 continue tx. increase remeron to 15mg po qhs, help with mood/appetite. given one time dose of ativan 0.5mg po fair effect, but may schedule or add prn doses depending on response and pt's preference. 12/25 continue tx. 12/26 increase remeron to 15mg po qhs to help with mood/sleep, increased appetite. Reason for continued inpatient stay Substantial Risk for: inability to function Time Spent With Patient Time: Total time managing care of this patient today ____ minutes.
--- NOTE | 2024-12-26 13:20 | MHC.CLN ---
F/U DIET=LOW FIBER WITH ENSURE TID. SUPPLEMENT PROVIDES 1050 KCALS, 60 G PROTEIN. INTAKE CONTINUES VARIABLE WITH AVERAGE INTAKE APPROX 25%. CONTINUE TO FOLLOW FOR PO INTAKE AND DIET TOLERANCE.
[2024-12-26] MEDS: LORazepam 0.5 MG TABLET 0.25 MG PO (14:51)
[2024-12-26 20:00] VITALS: BP 128/65; PULSE 93; RESP 16; TEMP 36.4; O2SAT 95
[2024-12-26] MEDS: Mirtazapine 15 MG TABLET PO (20:48)
[2024-12-27] MEDS: Acetaminophen 325 MG TABLET 650 MG PO ×3 (01:10→20:33)
[2024-12-27] MEDS: Omeprazole 20 MG CAPSULE.DR PO (06:15)
[2024-12-27 08:00] VITALS: BP 155/75; PULSE 76; RESP 16; TEMP 36.3; O2SAT 96
[2024-12-27] MEDS: Enoxaparin Sodium 100 MG/ML SYRINGE 90 MG SUBCUT ×2 (09:11→20:32)
[2024-12-27] MEDS: polyethylene glycoL 3350 17 GM POWD.PACK PO (09:11)
[2024-12-27] MEDS: Lactulose 20 GM/30 ML SOLUTION 10 GM PO (09:12)
[2024-12-27] MEDS: Docusate Sodium 100 MG CAPSULE PO ×2 (09:13→20:33)
[2024-12-27] MEDS: Metoprolol Tartrate 25 MG TABLET PO ×2 (09:13→20:33)
[2024-12-27] MEDS: Atorvastatin Calcium 20 MG TABLET PO (09:14)
[2024-12-27] MEDS: lisinopriL 5 MG TABLET PO (09:14)
[2024-12-27] MEDS: timoloL maleate 0.5 % Oph Sol 5 ML DRBTL 1 DROP EYE-BOTH ×2 (09:15→20:31)
[2024-12-27] MEDS: Brimonidine Tartrate 0.2% Oph 5 ML BOTTLE 1 DROP EYE-BOTH ×2 (09:15→20:32)
[2024-12-27 10:24] VITALS: BMI 26.7
--- NOTE | 2024-12-27 15:32 | P.PNPSI_ITS ---
Subjective Subjective Date of Service: 12/27/24 Reason For Visit: SA Interim History: states he is leaving tomorrow. very focused on bowel function and pain, reports he'd been suicidal due to bowel pain. feels he has managed it well while in the hospital by eating much less and only liquids, primarily. has CA, will work with oncologist on pain mgmt after discharge. Mental Status Exam Mental Status Exam Narrative: Appearance: wearing hospital gown, fair hygiene in NAD Behavior: cooperative, friendly PSychomotor: no agitation or retardation noted Speech: clear, normal rate/rhythm/volume, spontaneous TP: linear TC: not wanting to be in excrutiating pain Mood: better today Affect: congruent SI: none expressed HI: none expressed VH/AH: none expressed Delusions: none expressed Insight/judgment: intact x 2. memory/cog: alert, oriented x 4. grossly intact to conversational testing but not formally tested. Diagnostics Vital Signs (24Hr): Vital Signs - 24 hr 12/26/24 20:00 12/27/24 08:00 Temperature 97.6 F 97.4 F Pulse Rate 93 76 Respiratory Rate 16 16 Blood Pressure 128/65 155/75 H Pulse Oximetry 95 96 Oxygen Delivery Method Room Air Room Air BMI result Body Mass Index 26.7 Labs 12/24/24 08:10 12/21/24 07:43 Medications Medications Current Medications Acetaminophen (Acetaminophen 325 Mg Tablet) 650 mg PO Q6H PRN PRN Reason: Headache/Pain, Scale 1-10 Last Admin: 12/27/24 10:52 Dose: 650 mg Al Hydroxide/Mg Hydroxide (Magnesium Hydrox/Alum Hydrox 30 Ml Oral.Susp) 30 ml PO Q6H PRN PRN Reason: Heartburn/Nausea Atorvastatin Calcium (Atorvastatin Calcium 20 Mg Tablet) 20 mg PO DAILY [facility] Last Admin: 12/27/24 09:14 Dose: 20 mg Brimonidine Tartrate (Brimonidine Tartrate 0.2% Oph 5 Ml Bottle) 1 drop EYE- BOTH BID [facility] Last Admin: 12/27/24 09:15 Dose: 1 drop Docusate Sodium (Docusate Sodium 100 Mg Capsule) 100 mg PO BID [facility] Last Admin: 12/27/24 09:13 Dose: 100 mg Enoxaparin Sodium (Enoxaparin Sodium 100 Mg/Ml Syringe) 90 mg SUBCUT Q12H [facility] Last Admin: 12/27/24 09:11 Dose: 90 mg Ferrous Sulfate (Ferrous Sulfate 324 Mg Tablet.Dr) 324 mg PO Q48H [facility] Last Admin: 12/26/24 08:04 Dose: 324 mg Hydrocortisone (Hydrocortisone 2.5 % Rectal Cr 30 Gm Tube) 1 appl [place] BID [facility] Last Admin: 12/27/24 10:55 Dose: Not Given Lactulose (Lactulose 20 Gm/30 Ml Solution) 10 gm PO DAILY [facility] Last Admin: 12/27/24 09:12 Dose: 10 gm Lisinopril (Lisinopril 5 Mg Tablet) 5 mg PO DAILY [facility]; Protocol Last Admin: 12/27/24 09:14 Dose: 5 mg Magnesium Hydroxide (Milk Of Magnesia 30 Ml Oral.Susp) 30 ml PO DAILY PRN PRN Reason: Constipation Last Admin: 12/25/24 16:46 Dose: 30 ml Metoprolol Tartrate (Metoprolol Tartrate 25 Mg Tablet) 25 mg PO BID [facility]; Protocol Last Admin: 12/27/24 09:13 Dose: 25 mg Mirtazapine (Mirtazapine 15 Mg Tablet) 15 mg PO BEDTIME [facility] Last Admin: 12/26/24 20:48 Dose: 15 mg Omeprazole (Omeprazole 20 Mg Capsule.Dr) 20 mg PO DAILY@0630 [facility] Last Admin: 12/27/24 06:15 Dose: 20 mg Polyethylene Glycol (Polyethylene Glycol 3350 17 Gm Powd.Pack) 17 gm PO DAILY [facility] Last Admin: 12/27/24 09:11 Dose: 17 gm Prochlorperazine Maleate (Prochlorperazine Maleate 5 Mg Tablet) 5 - 10 mg PO Q6H PRN PRN Reason: Nausea Timolol Maleate (Timolol Maleate 0.5 % Oph Stephanie 5 Ml Drbtl) 1 drop EYE-BOTH BID [facility] Last Admin: 12/27/24 09:15 Dose: 1 drop Trazodone HCl (Trazodone Hcl 50 Mg Tablet) 50 mg PO BEDTIME MRX1 PRN PRN Reason: Insomnia Last Admin: 12/26/24 20:48 Dose: 50 mg Allergies Allergies Allergy/AdvReac Type Severity Reaction Status Date / Time No Known Allergies Allergy Verified 12/19/24 06:08 Assessment & Plan Assessment & Plan (1) Acute reaction to situational stress: Status: Acute Code(s): F43.0 - Acute stress reaction (2) Metastatic colon cancer to liver: Status: Acute Code(s): C18.9 - Malignant neoplasm of colon, unspecified; C78.7 - Secondary malignant neoplasm of liver and intrahepatic bile duct Plan 1/Abdominal pain in setting of CRC - with constipation, relieved by passing gas and stool--most likel his pain is from stool build up--he is not on narcotics PLAN: 1/ recommend trial of marinol to help with appetite or consider mirtazepine 2/ LOW FIBER diet, stop metamucil 3/ KUB 4/ add linaclotide, if can't get in house then MOM or lactulose and linaclotide as o/p 12/24 continue tx. increase remeron to 15mg po qhs, help with mood/appetite. given one time dose of ativan 0.5mg po fair effect, but may schedule or add prn doses depending on response and pt's preference. 12/25 continue tx. 12/26 increase remeron to 15mg po qhs to help with mood/sleep, increased appetite. 12/27: feeling improved in term of abd pain and therefore mood. reports he is to be discharging tomorrow. continue current mgmt. Reason for continued inpatient stay Substantial Risk for: harm to self and inability to function Time Spent With Patient Time: Total time managing care of this patient today ____ minutes.
[2024-12-27 20:00] VITALS: BP 136/74; PULSE 82; RESP 16; TEMP 36.6; O2SAT 96
[2024-12-27] MEDS: Mirtazapine 15 MG TABLET PO (20:33)
[2024-12-27] MEDS: traZODone HCL 50 MG TABLET PO (20:33)
[2024-12-28] MEDS: Milk of Magnesia 30 ML ORAL.SUSP PO (02:15)
[2024-12-28] MEDS: Acetaminophen 325 MG TABLET 650 MG PO ×2 (02:24→15:06)
[2024-12-28] MEDS: Omeprazole 20 MG CAPSULE.DR PO (06:19)
[2024-12-28 08:00] VITALS: BP 109/69; PULSE 83; RESP 16; TEMP 36.8; O2SAT 97
[2024-12-28] MEDS: Lactulose 20 GM/30 ML SOLUTION 10 GM PO (08:45)
[2024-12-28] MEDS: Enoxaparin Sodium 100 MG/ML SYRINGE 90 MG SUBCUT (08:46)
[2024-12-28] MEDS: timoloL maleate 0.5 % Oph Sol 5 ML DRBTL 1 DROP EYE-BOTH (08:46)
[2024-12-28] MEDS: lisinopriL 5 MG TABLET PO (08:46)
[2024-12-28] MEDS: Brimonidine Tartrate 0.2% Oph 5 ML BOTTLE 1 DROP EYE-BOTH (08:46)
[2024-12-28] MEDS: polyethylene glycoL 3350 17 GM POWD.PACK PO (08:47)
[2024-12-28] MEDS: Atorvastatin Calcium 20 MG TABLET PO (08:47)
[2024-12-28] MEDS: Ferrous Sulfate 324 MG TABLET.DR PO (08:47)
[2024-12-28] MEDS: Metoprolol Tartrate 25 MG TABLET PO (12:32)
[2024-12-28] MEDS: Docusate Sodium 100 MG CAPSULE PO (12:32)
--- NOTE | 2024-12-28 14:06 | MHC.CLN ---
F/U DIET=LOW FIBER WITH ENSURE TID. SUPPLEMENT PROVIDES 1050 KCALS, 60 G PROTEIN. INTAKE CONTINUES VARIABLE, 0-100%. ENCOURAGE INTAKE ABLE. CONTINUE TO FOLLOW FOR PO INTAKE AND DIET TOLERANCE.
--- NOTE | 2024-12-28 15:02 | P.DS_ITS ---
DS: Providers Provider Date of Service: 12/28/24 Date of admission: 12/20/24 14:35 Date of discharge: 12/28/24 Primary care physician: Unknown Physician Consults: 12/21/24 08:57 Consult to Hospitalist Routine Comment: Consulting [place] [facility] [facility] Reason For Exam: abdominal pain 12/22/24 07:50 Consult to Gastroenterology Routine Consulting Provider: Prakash Arita Reason for consultation: abdominal pain in setting of colon/liver cancer Has provider been notified: Yes DS: Diagnosis Discharge Diagnosis (1) Acute reaction to situational stress: Status: Acute (2) Metastatic colon cancer to liver: Status: Acute DS: Medications Discharge Medications Home Medications: Home Medications ?Medication ?Instructions ?Recorded ?Confirmed brimonidine 0.2 %-timolol 0.5 % 1 drp ophthalmic (eye) BID 12/19/24 12/19/24 eye drops docusate sodium 100 mg capsule 100 mg PO BID 12/19/24 12/19/24 enoxaparin 100 mg/mL subcutaneous 90 mg subcut Q12H 12/19/24 12/19/24 syringe ferrous gluconate 324 mg (38 mg 324 mg PO Q48H 12/19/24 12/19/24 iron) tablet hydrocortisone 2.5 % topical cream 1 appl NE BID 12/19/24 12/19/24 with perineal applicator (Procto-Med HC) lisinopril 5 mg tablet 5 mg PO DAILY 12/19/24 12/19/24 loteprednol etabonate 0.5 % eye See Rx Instructions .Route .COMPLEX 12/19/24 12/19/24 ointment (Lotemax) metoprolol tartrate 25 mg tablet 25 mg PO BID 12/19/24 12/19/24 pantoprazole 40 mg tablet,delayed 40 mg PO DAILY@0630 12/19/24 12/19/24 release polyethylene glycol 3350 17 gram 17 g PO DAILY 12/19/24 12/19/24 oral powder packet (Miralax) prochlorperazine maleate 5 mg 5 - 10 mg PO Q6H PRN Nausea 12/19/24 12/19/24 tablet (Compazine) trifluridine 15 mg-tipiracil 6.14 1 tab PO BID 12/19/24 12/19/24 mg tablet (Lonsurf) Previous Rx's ?Medication ?Instructions ?Recorded atorvastatin 20 mg tablet 20 mg PO DAILY 30 days #30 tabs 12/28/24 lactulose 10 gram/15 mL oral 10 g (15 mL) PO DAILY 30 days #450 12/28/24 solution mL mirtazapine 15 mg tablet 15 mg PO BEDTIME 30 days #30 tabs 12/28/24 trazodone 50 mg tablet 50 mg PO BEDTIME PRN Insomnia 30 12/28/24 days #30 tabs Mental Status Exam Mental Status Exam Narrative: Appearance: wearing hospital gown, fair hygiene in NAD Behavior: cooperative, friendly PSychomotor: no agitation or retardation noted Speech: clear, normal rate/rhythm/volume, spontaneous TP: linear TC: not wanting to be in excruciating pain, feeling better Mood: every problem i have here is pain-derived Affect: flexible, full range, normo-intense, non-labile SI: none HI: none VH/AH: none Delusions: none Insight/judgment: intact x 2. memory/cog: alert, oriented x 4. grossly intact to conversational testing but not formally tested. Data Data Completed and Pending Completed studies during hospitalization [Text1]: 12/21/24 12/24/24 20:00 08:10 WBC 5.3 RBC 3.18 L Hgb 8.9 L Hct 27.4 L MCV 86.2 MCH 28.0 MCHC 32.5 RDW 15.1 Plt Count 158 L MPV 9.5 Absolute Nucleated RBC 0.000 Nucleated RBC % (auto) 0.0 Stl C. cayetanensis PCR Not Detected Stool Rotavirus A PCR Not Detected Stl Adenov F 40/41 PCR Not Detected Stool Astrovirus (PCR) Not Detected Stool Campylobacter PCR Not Detected Stool Cryptosporidium PCR Not Detected Stl Sh Tox Pr E STEC PCR Not Detected Stool E coli O157 PCR Not applicable Stl Enterotoxigenic E PCR Not Detected Stool EPEC (PCR) Not Detected Stool EAEC (PCR) Not Detected Stl E. histolytica PCR Not Detected Stool Giardia Lamblia PCR Not Detected Stl P. shigelloides PCR Not Detected Stool Salmonella PCR Not Detected Stool Sapovirus (PCR) Not Detected Stl Shigella/EIEC PCR Not Detected St Y.enterocolitica PCR Not Detected Stool Vibrio (PCR) Not Detected Stl Vibrio cholerae PCR Not Detected Stl Norovirus GI/GII PCR Not Detected C. difficile Tox B Gene NEGATIVE DS: Summary Hospital Course Hospital Course: per 12/21 admission note: HPI Subjective Notes: Johnson Warning and Conditional Voluntary Narrative: Mr. Cortes is an 79 year-old male with hx of liver/colon cancer who was brought via EMS after he called 911 reporting suicide attempt via cutting both wrists in context of severe abdominal pain for the past 3 weeks. Pt does have terminal cancer in palliative stages. No prior psychiatric hx nor suicide attempts. Pt presented as pleasant and cooperative. He reports he has been going to ED at [facility] due to severe abdominal in context of liver/colon cancer. He reports he has been told he has one year left to live, which he has accepted but in the past 3 weeks he reports excruciating physical pain. He reports he has been referred to GI for further management outpatient but has not been given a follow up appointment. He reports the day of suicide attempt he was in a lot of pain. He reports slow motility, constipation with periods of cramping and loose stools. He reports nausea, then vomiting. He reports he decided to cut his wrist and went to the bathroom. He reports he used a knife that was not too sharp and after several attempts and cuts, he decided to get out of the tub with much effort as he states that he was feeling very weak and could barely walk out of the tub. He called 911 and asked for help. He reports at this moment he does not have any thought of wanting to end his life. He does say that he has accepted the fact that he will sooner rather than later due to his advanced cancer. He reports he is content with the life he lived and the work he did. He reports he does not want to be in physical pain. He reports he has not had abdominal pain today nor yesterday while in the ED. He is glad about this. He does report that if any help given to be medical focusing on managing the pain and keeping him comfortable. He reports he still want to continue chemotherapy. Past Psychiatric History: Inpt: none prior OP: none No prior hx of suicide attempt. Medical Evaluation Reviewed: Yes [facility] Medical History Hypertension CVA (cerebral vascular accident) Precis: Mr. Cortes is an 79 year-old male with hx of advanced liver/colon cancer who was brought via EMS after he called 911 due to suicide attempt via cutting both wri st (no stitches needed) severe abdominal pain in context of terminal cancer with prognosis of one year left to live. He appears to have accepted the fact that his medical condition is terminal but given excruciating pain and several ED visits with no relief and follow up appointments delayed to see GI he reports he felt he had no other option. He does not report suicidal ideation now. He reports he does not want to be in severe pain and suffering. Seen by hospitalist today who will coordinate additional medical care. May consult GI for additional input. Will hold on adding any medications today until having better idea as to what is going on medically. Will add prn doses of ativan. 12/21: Admit to S1, CV, 5 minutes checks. continue current medications. obtain collateral information. aftercare planning. 12/22- Continue tx 12/23- Continue tx 12/24 continue tx. increase remeron to 15mg po qhs, help with mood/appetite. given one time dose of ativan 0.5mg po fair effect, but may schedule or add prn doses depending on response and pt's preference. 12/25 continue tx. 12/26 increase remeron to 15mg po qhs to help with mood/sleep, increased appetite. 12/27: feeling improved in term of abd pain and therefore mood. reports he is to be discharging tomorrow. continue current mgmt. 12/28: pain improved and with it mood, SI resolved. discharge pt to outpt F/U today to focus on working with GI to control pain. GI Consult input: Abdominal pain in setting of CRC - with constipation, relieved by passing gas and stool--most likely his pain is from stool build up--he is not on narcotics PLAN: 1/ recommend trial of marinol to help with appetite or consider mirtazepine 2/ LOW FIBER diet, stop metamucil 3/ KUB 4/ add linaclotide, if can't get in house then MOM or lactulose and linaclotide as o/p Time Spent with Patient Time attestation: Total time managing care of this patient today _55___ minutes. Discharge Plan Discharge Anticipated Discharge Date/Time: 12/28/24 17:30 Patient Disposition: Home, Self-Care Discharge Diagnosis: Acute Stress Reaction Colon Cancer Referrals: Dr Anthony Lucio [facility] [Other] - 01/02/25 2:30 pm (Your follow up PCP appointment is scheduled for 01/02/25 at 2:30PM. You have been referrred to the [facility] at [facility] for a therapist. You PCP will arrange for appointment. ) [facility] [Other] - 01/15/25 10:30 am (Your next appointment at [facility] with Dr Bonilla is scheduled for 01/15/25 at 10:30am for labwork and then 11:30am with Dr Bonilla. ) [facility] [Other] - 12/29/24 (You have been referrred for prison, and PT/OT services. [facility] will contact you following discharge to schedule first home visit. ) [facility] [Other] - 2 Weeks (You have been referred for homecare services. [facility] will be in contact with you following discharge to schedule home visit for assessment. ) [facility] [Other] - 1 Week (Request was made for follow up GI appointment. Office requested GI cosult paperwork be sent and request for Urgent appointment and they stated they would follow up with you directly to provide appointment date and time.) Discharge Medications: New atorvastatin 20 mg Tablet 20 mg PO DAILY 30 Days Qty: 30 0RF trazodone 50 mg Tablet 50 mg PO BEDTIME PRN (Reason: Insomnia) 30 Days Qty: 30 0RF mirtazapine 15 mg Tablet 15 mg PO BEDTIME 30 Days Qty: 30 0RF lactulose 10 gram/15 mL Solution 10 g PO DAILY 30 Days Qty: 450 0RF Continued pantoprazole 40 mg tablet,delayed release (DR/EC) 40 mg PO DAILY@0630 docusate sodium 100 mg capsule 100 mg PO BID lisinopril 5 mg tablet 5 mg PO DAILY enoxaparin 100 mg/mL syringe 90 mg subcut Q12H metoprolol tartrate 25 mg tablet 25 mg PO BID brimonidine-timolol 0.2-0.5 % drops 1 drp ophthalmic (eye) BID Lotemax 0.5 % ointment See Rx Instructions .ROUTE .COMPLEX Rx Instructions: Apply 1 application to left eye BID x1 week, then apply daily x1 week, then stop. polyethylene glycol 3350 [Miralax] 17 gram Powder In Packet 17 g PO DAILY prochlorperazine maleate [Compazine] 5 mg Tablet 5 - 10 mg PO Q6H PRN (Reason: Nausea) hydrocortisone [Procto-Med HC] 2.5 % cream with perineal applicator 1 appl NE BID Lonsurf 15-6.14 mg Tablet 1 tab PO BID Rx Instructions: must administer with food (with morning and evening meals); on Days 1 through 5 and Days 8 through 12 of 28-day cycle ferrous gluconate 324 mg (38 mg iron) Tablet 324 mg PO Q48H Discontinued simvastatin 40 mg tablet 40 mg PO DAILY Discharge Orders: Discharge Order (Routine); Ordered 12/28/24 Ordered By: Mansoor Bonilla Diet: Advance to usual diet Activity on Discharge: As tolerated Stand Alone Forms: Patient Portal Discharge page Print Language: Greek Care Plan Goals: remain safe and stable in the outpatient treatment setting Health Concerns: metastatic colon cancer abdominal pain Plan of Treatment: take medications as prescribed, attend appointments as scheduled Assessment: not at imminent risk of harm to self or others Patient Instructions: Help Prevent Suicide (ED)
== END 2024-12-28 17:40 | disposition home or self-care (01) | DRG 880 ==
LOC: HO.ED 12-20 14:43 → HO.PGERI 12-20 16:26
PROVIDERS: Emergency Medicine; Nurse Practitioner Family; Admitting Provider Social Worker; Emergency Provider Emergency Medicine; Visit Provider Social Worker
DX: F43.0 Acute stress reaction (principal); C18.9 Malignant neoplasm of colon, unspecified; C78.7 Secondary malignant neoplasm of liver and intrahepatic bile duct; S61.512A Laceration without foreign body of left wrist, initial encounter; S61.511A Laceration without foreign body of right wrist, initial encounter; X78.9XXA Intentional self-harm by unspecified sharp object, initial encounter; I10 Essential (primary) hypertension; D50.0 Iron deficiency anemia secondary to blood loss (chronic); E78.5 Hyperlipidemia, unspecified; I48.91 Unspecified atrial fibrillation; H40.9 Unspecified glaucoma; Z87.891 Personal history of nicotine dependence; Z79.899 Other long term (current) drug therapy
CPT/HCPCS: 36415; 74018; 80053; 80061; 80143; 80179; 80307; 81001; 82607; 82746; 83036; 83690; 84443; 85007; 85027; 85610; 85730; 87493; 87507; 90715; 93005; 97116; 97162; 99285; J1650; S9485

== ENCOUNTER → 2024-12-19 09:29 | Outpatient (BNV) | payer BC, SELFPAY | PROVIDERS: Emergency Provider Emergency Medicine; Visit Provider Internal Medicine | DX: R00.0 Tachycardia, unspecified (principal) | CPT/HCPCS: 93010 ==

== ENCOUNTER 2024-12-20 14:35 | Outpatient (BNV) | payer BC, SELFPAY | END 2024-12-23 13:39 | PROVIDERS: Admitting Provider Social Worker; Emergency Provider Emergency Medicine; Visit Provider Radiology Diagnostic Radiology | DX: R10.9 Unspecified abdominal pain (principal) | CPT/HCPCS: 74018 ==

== ENCOUNTER → 2024-12-20 14:35 | Outpatient (BNV) | payer BC, SELFPAY | PROVIDERS: Admitting Provider Social Worker; Emergency Provider Emergency Medicine; Visit Provider Nurse Practitioner Family | DX: R45.851 Suicidal ideations (principal); C18.9 Malignant neoplasm of colon, unspecified; C78.7 Secondary malignant neoplasm of liver and intrahepatic bile duct | CPT/HCPCS: 99222 ==

== ENCOUNTER → 2024-12-20 14:35 | Outpatient (BNV) | payer BC, SELFPAY | PROVIDERS: Admitting Provider Social Worker; Emergency Provider Emergency Medicine; Visit Provider Clinical Nurse Specialist Psychiatric/Mental Health, Adult | DX: F43.0 Acute stress reaction (principal); C18.9 Malignant neoplasm of colon, unspecified; C78.7 Secondary malignant neoplasm of liver and intrahepatic bile duct | CPT/HCPCS: 90792; 99231; 99232 ==

== ENCOUNTER → 2024-12-20 14:35 | Outpatient (BNV) | payer BC, SELFPAY | PROVIDERS: Admitting Provider Social Worker; Emergency Provider Emergency Medicine; Visit Provider Internal Medicine Gastroenterology | DX: C18.9 Malignant neoplasm of colon, unspecified (principal); C78.7 Secondary malignant neoplasm of liver and intrahepatic bile duct | CPT/HCPCS: 99223 ==

== ENCOUNTER 2025-01-05 16:25 | Emergency (ER) | payer MEDICARE, BC, SELFPAY ==
[2025-01-05] VITALS (7 sets, daily range): BP systolic 132–150; BP diastolic 76–96; PULSE 77–101; RESP 14–20; TEMP 36.6–37.1; O2SAT 95–99; BMI 26.5
--- NOTE | ~2025-01-05 | XR_ITS ---
CLINICAL HISTORY: Evaluate for PowerPort 1 view chest x-ray Comparison: None Findings: Right chest wall central venous port catheter in appropriate position. No consolidation or effusion. Heart size is normal. No acute fracture. IMPRESSION: 1. No acute findings. This document has been electronically signed by: Josh Shah MD on 01/05/2025 19:09:50
--- NOTE | ~2025-01-05 | CT_ITS ---
CLINICAL HISTORY: Generalized abdominal pain CT abdomen and pelvis with contrast Comparison: None Findings: Mild posterior-dependent atelectasis in the lower lobes. Tiny bilateral pleural effusions. Numerous hepatic hypodensities with solid internal attenuation are strongly suggestive of metastatic disease. Moderate volume free fluid in the abdomen and pelvis predominantly perihepatic and perisplenic in distribution. Extensive enhancing nodularity in the omentum, mesentery, and peritoneal surfaces suggestive of peritoneal carcinomatosis. No acute finding of the stomach, small bowel, or colon. Normal gallbladder, bile ducts, pancreas. Nonspecific 10 mm hypodensity in the splenic hilum. Splenic calcified granulomata noted. No adrenal gland nodule or mass. Normal kidneys, ureters, and urinary bladder. No acute fracture or suspicious bone lesion. IMPRESSION: 1. Moderate volume free fluid in the abdomen and pelvis with hepatic hypodensity suggestive of metastatic disease along with extensive enhancing nodularity along the peritoneal surfaces as well as in the mesentery and omentum. 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 No definite candidate primary source lesion is identified. 2. Tiny pleural effusions may be reactive although malignant pleural effusions are not entirely excluded. This document has been electronically signed by: Josh Shah MD on 01/05/2025 20:37:44
--- NOTE | 2025-01-05 17:14 | ED_ITS ---
HPI - Abdominal Pain General Chief Complaint: Abdominal Pain Stated Complaint: abd pain x2 weeks, cancer pt Time Seen by Provider: 01/05/25 17:14 Source: patient Mode of arrival: EMS Limitations: no limitations History of Present Illness ED Provider: Tung Hensley DO HPI narrative: 79-year-old male with past medical history of liver and colon cancer as well as suicidal attempts with recent admission via cutting, CVA, hypertension who was brought in via EMS due to 3 weeks of 8/10 generalized abdominal pain with associated nausea without vomiting. Patient states his last bowel movement was 3-4 days ago. He was started on chemotherapy 2 years ago, last regimen 3 or 4 weeks ago with a new 1 prescribed soon. He is followed by Oncology at [facility]. Patient states he has had 5 similar episodes of generalized abdominal pain over the course of several weeks. He developed gradually worsening onset pain at approximately 14:00 today, currently a 6/10 in severity. This was many hours after eating food this morning. He describes it as generalized but now more over the right upper quadrant. He reports dry heaving while in the ambulance but no vomiting episodes. He states his last bowel movement was not hard stool and over the course of the past couple of weeks he has had episodes of bowel movements every 3 or 4 days. He took milk of magnesia and Zofran earlier today. Related Data Home Medications ?Medication ?Instructions ?Recorded ?Confirmed brimonidine 0.2 %-timolol 0.5 % 1 drp ophthalmic (eye) BID 12/19/24 12/19/24 eye drops docusate sodium 100 mg capsule 100 mg PO BID 12/19/24 12/19/24 enoxaparin 100 mg/mL subcutaneous 90 mg subcut Q12H 12/19/24 12/19/24 syringe ferrous gluconate 324 mg (38 mg 324 mg PO Q48H 12/19/24 12/19/24 iron) tablet hydrocortisone 2.5 % topical cream 1 appl NV BID 12/19/24 12/19/24 with perineal applicator (Procto-Med HC) lisinopril 5 mg tablet 5 mg PO DAILY 12/19/24 12/19/24 loteprednol etabonate 0.5 % eye See Rx Instructions .Route .COMPLEX 12/19/24 12/19/24 ointment (Lotemax) metoprolol tartrate 25 mg tablet 25 mg PO BID 12/19/24 12/19/24 pantoprazole 40 mg tablet,delayed 40 mg PO DAILY@0630 12/19/24 12/19/24 release polyethylene glycol 3350 17 gram 17 g PO DAILY 12/19/24 12/19/24 oral powder packet (Miralax) prochlorperazine maleate 5 mg 5 - 10 mg PO Q6H PRN Nausea 12/19/24 12/19/24 tablet (Compazine) trifluridine 15 mg-tipiracil 6.14 1 tab PO BID 12/19/24 12/19/24 mg tablet (Lonsurf) Previous Rx's ?Medication ?Instructions ?Recorded atorvastatin 20 mg tablet 20 mg PO DAILY 30 days #30 tabs 12/28/24 lactulose 10 gram/15 mL oral 10 g (15 mL) PO DAILY 30 days #450 12/28/24 solution mL mirtazapine 15 mg tablet 15 mg PO BEDTIME 30 days #30 tabs 12/28/24 trazodone 50 mg tablet 50 mg PO BEDTIME PRN Insomnia 30 12/28/24 days #30 tabs Allergies Allergy/AdvReac Type Severity Reaction Status Date / Time No Known Allergies Allergy Verified 01/05/25 16:57 Review of Systems Review of Systems Yes all other systems are reviewed and are negative PMFSH Past Medical History Medical History Hypertension CVA (cerebral vascular accident) Social History Social History Household Members: None Housing: Condominium Do you presently have visiting nurse or other home services: No Patient Tobacco Use Status: Former Tobacco user Tobacco use type: Cigarette Smoked in Last 30 Days: No Use of substances other than those prescribed or required for medical reasons: Yes Substance Use Type: Marijuana Last Used Substance: Weeks (ago) Advance Directives: No Advance Directives Information Provided: Yes service: No Sexual orientation: Straight/Heterosexual Physical Exam ED Vital Signs: Vital Signs - 24 hr 01/05/25 16:52 01/05/25 18:03 01/05/25 19:19 Temperature 97.9 F 98.5 F 98.8 F Pulse Rate 88 83 89 Respiratory Rate 16 14 20 Blood Pressure 132/80 134/80 146/76 H Pulse Oximetry 95 98 98 Oxygen Delivery Method Room Air Room Air Room Air 01/05/25 19:20 Temperature Pulse Rate Respiratory Rate 20 Blood Pressure Pulse Oximetry Oxygen Delivery Method BMI result Body Mass Index 26.5 Constitutional: ?Alert, oriented, speaking in full sentences HEENT: ?Normocephalic, atraumatic. ?Moist mucous membranes Eyes: ?PERRL, EOMI Neck: ?Supple, nontender Chest: ?No chest wall tenderness Respiratory: ?Lungs clear to auscultation, no increased work of breathing Cardio: ?Regular rate and rhythm, no murmur, 2+ radial and DP pulses symmetrically GI: ?Soft, nondistended, mild tenderness over the right upper quadrant. Negative Reed's sign. Back: ?Normal range of motion, nontender Skin: ?No rash, no lesions, small areas of ecchymosis secondary to Lovenox injections Neuro: ?Alert and oriented to person, place and time, moves all 4 extremities, no focal deficits Extremities: ?No swelling or tenderness, full range of motion Psych: ?Calm, alert and cooperative, appropriate behavior Course Course Course Narrative: Patient re-evaluated at 21:00 and his pain is resolved and he has no tenderness on exam. His lactic acid is unremarkable making mesenteric ischemia highly unlikely. His CT imaging does show evidence of metastatic disease with extension into the momentum which is likely irritating his abdomen and causing pain today. I discussed with him pain control at home with acetaminophen and very close follow up with his primary care provider and oncologist with repeat hemoglobin testing. He informed me that he recently stopped his iron supplementation with no clear reason. I discussed the importance to continue this medication to help prevent further worsening of his anemia. The patient voices understanding to return with any worsening symptoms. I will provide all of the instructions as well as image results for him to discuss with his oncologist. Patient agrees with plan. Medical Decision Making Medical Decision Making MDM Narrative: Older gentleman presenting with abdominal pain that started today with multiple previous episodes of the course of several weeks. He does have tenderness of the right upper quadrant and differential includes biliary pathology, pancreatitis, pain related to malignancy, possible constipation, possible bowel obstruction (last passed flatus at noon today), less likely mesenteric ischemia although the patient does have risk factors, much less likely ACS. We will address symptoms with IV acetaminophen and hydromorphone. We will further evaluate with labs and CT imaging. The patient has no suicidal ideations today. He does want a workup to further evaluate his symptoms today. Admission/Observation Consideration of admission/observation: Escalation of care including admission/observation considered Lab Data MDM Lab Attestation statement: I reviewed the patient's lab results. Anemia with a hemoglobin of 7.3 with most recent of 8.9 on 12/24/2024. All other hemoglobins are above this level. Mild hyponatremia at 01:32, unremarkable renal function and electrolytes otherwise, unremarkable lactic acid, unremarkable LFTs, unremarkable lipase. 01/05/25 19:07 01/05/25 19:07 Labs: Lab Results 01/05/25 Range/Units 19:07 WBC 5.9 (4.8-10.8) X10*3/uL RBC 2.72 L (4.60-5.80) X10*6/uL Hgb 7.3 L (14.0-18.0) g/dl Hct 22.0 L (42.0-52.0) % MCV 80.9 (80.0-98.0) fL MCH 26.8 L (27.0-33.0) pg MCHC 33.2 (31.0-36.0) g/dl RDW 15.8 (11.0-16.0) % Plt Count 158 L (160-400) X10*3/uL MPV 9.7 (9.4-12.4) fL Immature Gran % (Auto) 2.5 H (0.0-0.4) % Neut % (Auto) 64.7 (45-73) % Lymph % (Auto) 16.9 L (20-40) % Sterling % (Auto) 14.7 H (2-11) % Eos % (Auto) 1.0 (0-4) % Baso % (Auto) 0.2 (0-2) % Lymph # (Auto) 1.0 L (1.2-4.9) X10*3/uL Sterling # (Auto) 0.9 (0.1-1.2) X10*3/uL Eos # (Auto) 0.1 (0.0-0.4) X10*3/uL Baso # (Auto) 0.0 (0.0-0.2) X10*3/uL Abs Immat Gran (auto) 0.15 H (0.00-0.03) X10*3/uL Absolute Neuts (auto) 3.8 (2.0-8.3) x10*3/uL Absolute Nucleated RBC 0.000 (0.0-0.012) X10*3/uL Nucleated RBC % (auto) 0.0 (0.0-0.2) /100WBC Sodium 132 L (135-145) mmol/L Potassium 4.1 (3.3-5.1) mmol/L Chloride 98 (96-108) mmol/L Carbon Dioxide 25 (22-29) mmol/L Anion Gap 13 (12-20) BUN 13 (9-16) mg/dL Creatinine 0.54 (0.5-1.4) mg/dL Estim Creat Clear Calc 110.7 Estimated GFR > 60 Random Glucose 107 (60-115) mg/dL Lactic Acid 1.3 (0.5-2.0) mmol/L Calcium 8.5 D (8.4-10.2) mg/dL Total Bilirubin 0.4 (0.0-1.0) mg/dL Direct Bilirubin 0.2 (0.0-0.5) mg/dL AST 35 (5-37) U/L ALT 11 (0-40) U/L Alkaline Phosphatase 91 (39-117) U/L Total Protein 6.3 L (6.5-8.0) g/dL Albumin 3.7 (3.5-5.0) g/dL Lipase 22 (8-78) U/L Independent Interpretation I performed an independent interpretation of an: EKG Interpretation: Normal sinus rhythm at 89 beats per minute, left axis deviation, unremarkable intervals, no diagnostic ST or T-wave abnormalities with the exception of flattening in leads aVL and V1, compared to prior dated 12/19/2024 there are no significant changes including flattening in leads aVL and V1. Radiology Impression Discussion of test interpretation with radiology: I have reviewed the radiologist's reading. Radiologist Impression: Findings: Mild posterior-dependent atelectasis in the lower lobes. Tiny bilateral pleural effusions. Numerous hepatic hypodensities with solid internal attenuation are strongly suggestive of metastatic disease. Moderate volume free fluid in the abdomen and pelvis predominantly perihepatic and perisplenic in distribution. Extensive enhancing nodularity in the omentum, mesentery, and peritoneal surfaces suggestive of peritoneal carcinomatosis. No acute finding of the stomach, small bowel, or colon. Normal gallbladder, bile ducts, pancreas. Nonspecific 10 mm hypodensity in the splenic hilum. Splenic calcified granulomata noted. No adrenal gland nodule or mass. Normal kidneys, ureters, and urinary bladder. No acute fracture or suspicious bone lesion. IMPRESSION: 1. Moderate volume free fluid in the abdomen and pelvis with hepatic hypodensity suggestive of metastatic disease along with extensive enhancing nodularity along the peritoneal surfaces as well as in the mesentery and omentum. 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 No definite candidate primary source lesion is identified. 2. Tiny pleural effusions may be reactive although malignant pleural effusions are not entirely excluded. Medications Administered Discontinued Medications Generic Name Dose Route Start Last Admin Trade Name Freq PRN Reason Stop Dose Admin Hydromorphone HCl 0.2 mg 01/05/25 18:23 01/05/25 19:20 Hydromorphone Hcl 1 Mg/Ml Syringe IVPUSH 01/05/25 18:24 0.2 mg ONCE ONE Administration Protocol Acetaminophen 1,000 mg in 100 mls @ 400 mls/hr 01/05/25 18:23 01/05/25 19:39 Ofirmev IV 01/05/25 18:37 Infused ONCE ONE Infusion Iohexol 100 ml 01/05/25 19:55 01/05/25 19:55 Iohexol 350 Mg/Ml 100 Ml Infus..Btl IV 01/05/25 19:56 85 ml ONCE ONE Administration Discharge Plan Discharge Clinical Impression: Abdominal pain, Anemia, Metastatic disease, Abdominal carcinomatosis Patient Disposition: Home, Self-Care Instructions: Anemia (ED), Abdominal Pain (ED) Additional Instructions: You were evaluated for abdominal pain and treated with 0.2 mg of IV hydromorphone and 1000 mg of IV acetaminophen. Your labs do show a downtrend in your hemoglobin to 7.3. I recommend that you continue your iron supplementation and repeat your hemoglobin level with your primary doctor or oncologist within the next several days to ensure that it does not drop below 7 as you may require a transfusion. Your CT images show extension of cancer into the covering of your abdomen called the omentum. I listed the findings below. Please speak to your doctor about the results elicited in the impression so they can further manage this. Please call them on Tuesday to discuss the specific results. Please return to the ER immediately if you develop worsening pain despite taking 500-650 mg of acetaminophen (Tylenol) every 6-8 hours at home. You should avoid ibuprofen as you are on a blood thinner. Findings: Mild posterior-dependent atelectasis in the lower lobes. Tiny bilateral pleural effusions. Numerous hepatic hypodensities with solid internal attenuation are strongly suggestive of metastatic disease. Moderate volume free fluid in the abdomen and pelvis predominantly perihepatic and perisplenic in distribution. Extensive enhancing nodularity in the omentum, mesentery, and peritoneal surfaces suggestive of peritoneal carcinomatosis. No acute finding of the stomach, small bowel, or colon. Normal gallbladder, bile ducts, pancreas. Nonspecific 10 mm hypodensity in the splenic hilum. Splenic calcified granulomata noted. No adrenal gland nodule or mass. Normal kidneys, ureters, and urinary bladder. No acute fracture or suspicious bone lesion. IMPRESSION: 1. Moderate volume free fluid in the abdomen and pelvis with hepatic hypodensity suggestive of metastatic disease along with extensive enhancing nodularity along the peritoneal surfaces as well as in the mesentery and omentum. 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 No definite candidate primary source lesion is identified. 2. Tiny pleural effusions may be reactive although malignant pleural effusions are not entirely excluded. Prescriptions: No Action pantoprazole 40 mg tablet,delayed release (DR/EC) 40 mg PO DAILY@0630 docusate sodium 100 mg capsule 100 mg PO BID lisinopril 5 mg tablet 5 mg PO DAILY enoxaparin 100 mg/mL syringe 90 mg subcut Q12H metoprolol tartrate 25 mg tablet 25 mg PO BID brimonidine-timolol 0.2-0.5 % drops 1 drp ophthalmic (eye) BID Lotemax 0.5 % ointment See Rx Instructions .ROUTE .COMPLEX Rx Instructions: Apply 1 application to left eye BID x1 week, then apply daily x1 week, then stop. polyethylene glycol 3350 [Miralax] 17 gram Powder In Packet 17 g PO DAILY prochlorperazine maleate [Compazine] 5 mg Tablet 5 - 10 mg PO Q6H PRN (Reason: Nausea) hydrocortisone [Procto-Med HC] 2.5 % cream with perineal applicator 1 appl NV BID Lonsurf 15-6.14 mg Tablet 1 tab PO BID Rx Instructions: must administer with food (with morning and evening meals); on Days 1 through 5 and Days 8 through 12 of 28-day cycle ferrous gluconate 324 mg (38 mg iron) Tablet 324 mg PO Q48H atorvastatin 20 mg Tablet 20 mg PO DAILY 30 Days Qty: 30 0RF trazodone 50 mg Tablet 50 mg PO BEDTIME PRN (Reason: Insomnia) 30 Days Qty: 30 0RF mirtazapine 15 mg Tablet 15 mg PO BEDTIME 30 Days Qty: 30 0RF lactulose 10 gram/15 mL Solution 10 g PO DAILY 30 Days Qty: 450 0RF Print Language: Albanian
--- NOTE | 2025-01-05 18:27 | ECG_ITS ---
Test Reason : upper abd pain Blood Pressure : */* mmHG Vent. Rate : 89 BPM Atrial Rate : 89 BPM P-R Int : 144 ms QRS Dur : 88 ms QT Int : 362 ms P-R-T Axes : 32 -40 68 degrees QTcB Int : 440 ms Normal sinus rhythm Left axis deviation Abnormal ECG When compared with ECG of 19-Dec-2024 09:29, No significant change was found Referred By: Tung Hensley Electronically Signed By: Sal Starkey
[2025-01-05 19:12] LABS: MANUAL DIFF FLAG NO
[2025-01-05] MEDS: HYDROmorphone HCl 1 MG/ML SYRINGE 0.2 MG IVPUSH (19:20)
[2025-01-05] MEDS: Acetaminophen 1,000 MG/100 ML PIGGYBACK 400 MG IV (19:20)
[2025-01-05 19:27] LABS: Basophils Percent Auto 0.2 % (0-2); Eosinophils Absolute Auto 0.1 X10*3/uL (0.0-0.4); Hemoglobin 7.3 g/dl (14.0-18.0); Imm Gran Abs Auto 0.15 X10*3/uL (0.00-0.03); Imm Gran Pct Auto 2.5 % (0.0-0.4); Lactic Acid 1.3 mmol/L (0.5-2.0); Lymphocytes Percent Auto 16.9 % (20-40); Mean Corpuscular HGB Conc 33.2 g/dl (31.0-36.0); Mean Corpuscular Hemoglobin 26.8 pg (27.0-33.0); Mean Corpuscular Volume 80.9 fL (80.0-98.0); Mean Platelet Volume 9.7 fL (9.4-12.4); Monocytes Absolute Auto 0.9 X10*3/uL (0.1-1.2); Monocytes Percent Auto 14.7 % (2-11); Neutrophils Absolute Auto 3.8 x10*3/uL (2.0-8.3); Neutrophils Percent Auto 64.7 % (45-73); Platelet Count 158 X10*3/uL (160-400); Red Blood Count 2.72 X10*6/uL (4.60-5.80); Red Cell Distribution Width 15.8 % (11.0-16.0); White Blood Count 5.9 X10*3/uL (4.8-10.8)
[2025-01-05 19:28] LABS: Alanine Aminotransferase 11 U/L (0-40); Albumin Level 3.7 g/dL (3.5-5.0); Alkaline Phosphatase 91 U/L (39-117); Anion Gap 13 (12-20); Aspartate Amino Transferase 35 U/L (5-37); Bilirubin Direct 0.2 mg/dL (0.0-0.5); Bilirubin Total 0.4 mg/dL (0.0-1.0); Blood Urea Nitrogen 13 mg/dL (9-16); Calcium 8.5 mg/dL (8.4-10.2); Carbon Dioxide 25 mmol/L (22-29); Chloride 98 mmol/L (96-108); Creatinine Clr Calc Pharmacy 110.7; Estimated Glomerular Filt Rate > 60; Glucose Random 107 mg/dL (60-115); Lipase 22 U/L (8-78); Potassium 4.1 mmol/L (3.3-5.1); Sodium 132 mmol/L (135-145); Total Protein 6.3 g/dL (6.5-8.0)
--- NOTE | 2025-01-05 19:31 | PC.NURSE ---
this rn assumed care of pt. pt port accessed with power port at this time, 20g 3/4 in. pt tolerated well. labs obtained and sent. pt medicated per oct.
[2025-01-05] MEDS: iohexoL 350 MG/ML 100 ML INFUS..BTL IV (19:55)
== END 2025-01-05 21:52 | disposition home or self-care (01) ==
PROVIDERS: Emergency Provider Emergency Medicine; PCP Internal Medicine Nephrology
DX: R10.2 Pelvic and perineal pain (principal); D64.9 Anemia, unspecified; I10 Essential (primary) hypertension; R94.31 Abnormal electrocardiogram [ECG] [EKG]; Z79.899 Other long term (current) drug therapy
CPT/HCPCS: 36415; 71045; 74177; 80048; 80076; 83605; 83690; 85025; 86850; 86900; 86901; 93005; 96365; 96375; 99284; 99285; J0131; J1171; Q9967

== ENCOUNTER → 2025-01-05 18:27 | Outpatient (BNV) | payer BC, SELFPAY | PROVIDERS: Emergency Provider Emergency Medicine; PCP Internal Medicine Nephrology; Visit Provider Radiology Diagnostic Radiology | DX: Z45.2 Encounter for adjustment and management of vascular access device (principal); K76.89 Other specified diseases of liver | CPT/HCPCS: 71045; 74177 ==

== ENCOUNTER → 2025-01-05 18:27 | Outpatient (BNV) | payer BC, SELFPAY | PROVIDERS: Emergency Provider Emergency Medicine; PCP Internal Medicine Nephrology; Visit Provider Internal Medicine Cardiovascular Disease | DX: R94.31 Abnormal electrocardiogram [ECG] [EKG] (principal) | CPT/HCPCS: 93010 ==

== ENCOUNTER 2025-01-07 20:50 | Emergency (ER) | payer MEDICARE, BC, SELFPAY ==
[2025-01-07 20:55] VITALS: BP 121/80; BP 155/77; PULSE 107; PULSE 108; RESP 20; TEMP 37.1; O2SAT 97; O2SAT 98; BMI 26.5
--- OUTSIDE RECORDS SUMMARY | 2025-01-07 21:05 | XMS_ITS | Clinical Summary ---
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 12-21 00:00: 00 MAJOR DEPRESSIVE DISORDER, SINGLE EPISODE, UNSPECIFIED Active 12-21 00:00: 00 SUICIDE ATTEMPT, INITIAL ENCOUNTER Active 12-19 00:00: 00 MALIGNANT NEOPLASM OF COLON, UNSPECIFIED Active 12-21 00:00: 00 ESSENTIAL (PRIMARY) HYPERTENSION Active 12-21 00:00: 00 CEREBRAL INFARCTION, UNSPECIFIED Active 12-21 00:00: 00 PAROXYSMAL ATRIAL FIBRILLATION Active 12-21 00:00: 00 ANEMIA, UNSPECIFIED Active 12-21 00:00: 00 UNSPECIFIED ABDOMINAL PAIN Active 12-21 00:00: 00 GASTRO-ESOPH AGEAL REFLUX DISEASE WITHOUT ESOPHAGITIS Active 12-21 00:00: 00 UNSPECIFIED CATARACT Active 12-21 00:00: 00 HYPERLIPIDEM IA, UNSPECIFIED Active 12-21 00:00: 00 Allergies, Adverse Reactions, Alerts Allergy Name Allergy Type Status Severity Reaction(s) Onset Date Inactive Date Treating Clinician Comments NKA Propensity to adverse reactions Active 2024-12 14:53:1 7 Medications Ordered Medication Name Filled Medication Name Start Date Stop Date Current Medication? Ordering Clinician Indication Dosage Frequency Signature (SIG) Comments Components atorvastati n 20 mg tablet 12-29 00:00: 00 Yes [id number] 1 tablet DAILY 1 tablet DAILY (route: oral) Med Classific ation: Cardiovas cular Therapy Agents Colace 100 mg capsule 12-29 00:00: 00 Yes [id number] 1 capsule 2 TIMES DAILY 1 capsule 2 TIMES DAILY (route: oral) Med Classific ation: Gastroint estinal Therapy Agents Combigan 0.2 %-0.5 % eye drops 12-29 00:00: 00 Yes [id number] 1 drops 2 TIMES DAILY 1 drops 2 TIMES DAILY (route: ophthalmic (eye)) Med Classific ation: Ophthalmi c Agents Compazine 10 mg tablet 12-29 00:00: 00 Yes [id number] 1 tablet EVERY 6 HOURS 1 tablet EVERY 6 HOURS (route: oral) Med Classific ation: Gastroint estinal Therapy Agents ferrous gluconate 324 mg (37.5 mg iron) tablet 12-29 00:00: 00 Yes [id number] 1 tablet EVERY OTHER DAY 1 tablet EVERY OTHER DAY (route: oral) Med Classific ation: Electroly te Balance-N utritiona l Products hydrocortis one 2.5 % topical cream with perineal applicator 12-29 00:00: 00 Yes [id number] 1 applica tor 2 TIMES DAILY 1 applicator 2 TIMES DAILY (route: topical) Med Classific ation: Anorectal Preparati ons lactulose 10 gram/15 mL oral solution 12-29 00:00: 00 Yes [id number] 30 mL DIRECTED 30 mL DIRECTED (route: oral) Med Classific ation: Gastroint estinal Therapy Agents lisinopril 5 mg tablet 12-29 00:00: 00 Yes [id number] 1 mg DAILY 1 mg SOHA Y (route: oral) Med Classific ation: Cardiovas cular Therapy Agents Lonsurf 15 mg-6.14 mg tablet 12-29 00:00: 00 Yes [id number] 1 tablet 2 TIMES DAILY 1 tablet 2 TIMES DAILY (route: oral) Med Classific ation: Antineopl astics Lotemax 0.5 % eye drops,suspe nsion 12-29 00:00: 00 Yes [id number] 1 drops DAILY 1 drops DAILY (route: ophthalmic (eye)) Med Classific ation: Ophthalmi c Agents Lovenox 100 mg/mL subcutaneou s syringe 12-29 00:00: 00 Yes [id number] 100 mg 2 TIMES DAILY 100 mg 2 TIMES DAILY (route: subcutaneo us) Med Classific ation: Hematolog ical Agents metoprolol tartrate 25 mg tablet 12-29 00:00: 00 Yes [id number] 1 tablet 2 TIMES DAILY 1 tablet 2 TIMES DAILY (route: oral) Med Classific ation: Cardiovas cular Therapy Agents mirtazapine 15 mg tablet 12-29 00:00: 00 Yes [id number] 1 tablet BEDTIME 1 tablet BEDTIME (route: oral) Med Classific ation: Central Nervous System Agents pantoprazol e 40 mg tablet,fran yed release 12-29 00:00: 00 Yes [id number] 1 tablet DAILY 1 tablet DAILY (route: oral) Med Classific ation: Gastroint estinal Therapy Agents polyethylen e glycol 3350 17 gram oral powder packet 12-29 00:00: 00 Yes [id number] 1 powder in packet DAILY 1 powder in packet DAILY (route: oral) Med Classific ation: Gastroint estinal Therapy Agents trazodone 50 mg tablet 12-29 00:00: 00 Yes [id number] 1 tablet BEDTIME 1 tablet BEDTIME (route: oral) Med Classific ation: Central Nervous System Agents Immunizations Ordered Immunization Name Filled Immunization Name Date Status Comments Refusal Reason INFLUENZA, TIV (INACTIVATED) 2024-05-15 00:00:00 Vital Signs Vital Name Observation Time Observation Value Commen ts Temperature 2025-01-03 13:31:00.000 97.6 [degF] Temperature 2025-01-01 14:06:00.000 97.3 [degF] Temperature 2024-12-29 14:50:00.000 97.6 [degF] BMI (%) 2024-12-29 14:52:00.000 23 kg/m2 Height 2024-12-29 14:50:00.000 70 [in_us] Pulse 2025-01-03 13:31:00.000 85 /min Pulse 2025-01-01 14:06:00.000 80 /min Pulse 2024-12-29 14:50:00.000 85 /min O2 Saturation (%) 2025-01-03 13:31:00.000 96 % O2 Saturation (%) 2025-01-01 14:07:00.000 96 % Respirations 2025-01-03 13:31:00.000 18 /min Respirations 2025-01-01 14:06:00.000 16 /min Respirations 2024-12-29 14:50:00.000 16 /min Weight (lbs) 2024-12-29 14:52:00.000 161 [lb_av] Systolic Blood Pressure 2025-01-03 13:31:00.000 122 mm [Hg] Systolic Blood Pressure 2025-01-01 14:06:00.000 112 mm [Hg] Systolic Blood Pressure 2024-12-29 14:50:00.000 122 mm [Hg] Diastolic Blood Pressure 2025-01-03 13:31:00.000 60 mm [Hg] Diastolic Blood Pressure 2025-01-01 14:06:00.000 60 mm [Hg] Diastolic Blood Pressure 2024-12-29 14:50:00.000 70 mm [Hg] Plan of Treatment Planned Activity Planned Date Details Comments Future Scheduled Test SKILLED NU RSE TO EVALUATE PATIENT, IDENTIFY PRIMARY AND CO-MORBID CONDITIONS CODED PER CODING GUIDELINES, AND DEVELOP PATIENT SPECIFIC PLAN OF CARE THAT INCLUDES PATIENT GOAL FOR HOME HEALTH. [code = SKILLED NURSE TO EVALUATE PATIENT, IDENTIFY PRIMARY AND CO-MORBID CONDITIONS CODED PER CODING GUIDELINES, AND DEVELOP PATIENT SPECIFIC PLAN OF CARE THAT INCLUDES PATIENT GOAL FOR HOME HEALTH.] Future Scheduled Test SKILLED NU RSE WILL MAINTAIN SITUATIONAL AWARENESS FOR SAFETY AND WILL NOTIFY CLINICAL CLINICAL LIAISON AND PHYSICIAN/PROVIDER WITH ANY CHANGE IN CONDITION. [code = SKILLED NURSE WILL MAINTAIN SITUATIONAL AWARENESS FOR SAFETY AND WILL NOTIFY CLINICAL CLINICAL LIAISON AND PHYSICIAN/PROVIDER WITH ANY CHANGE IN CONDITION.] Future Scheduled Test SKILLED NU RSE TO PERFORM HOME SAFETY AND FALL ASSESSMENT AND PROVIDE INSTRUCTION TO IMPLEMENT HOME SAFETY AND FALL PREVENTION STRATEGIES. [code = SKILLED NURSE TO PERFORM HOME SAFETY AND FALL ASSESSMENT AND PROVIDE INSTRUCTION TO IMPLEMENT HOME SAFETY AND FALL PREVENTION STRATEGIES.] Future Scheduled Test SKILLED NU RSE FOR OBSERVATION AND ASSESSMENT OF PATIENTS PAIN LEVEL AND EFFECTIVENESS OF PAIN MANAGEMENT REGIMEN. SKILLED NURSE TO INSTRUCT PATIENT/CAREGIVER REGARDING PHARMACOLOGIC AND NON-PHARMACOLOGIC PAIN CONTROL MEASURES. SKILLED NURSE TO REPORT TO PHYSICIAN IF PAIN IS UNCONTROLLED WITH CURRENT PAIN MANAGEMENT REGIMEN. [code = SKILLED NURSE FOR OBSERVATION AND ASSESSMENT OF PATIENTS PAIN LEVEL AND EFFECTIVENESS OF PAIN MANAGEMENT REGIMEN. SKILLED NURSE TO INSTRUCT PATIENT/CAREGIVER REGARDING PHARMACOLOGIC AND NON-PHARMACOLOGIC PAIN CONTROL MEASURES. SKILLED NURSE TO REPORT TO PHYSICIAN IF PAIN IS UNCONTROLLED WITH CURRENT PAIN MANAGEMENT REGIMEN.] Future Scheduled Test PATIENT [place] S A RISK OF HOSPITALIZATION AND ED USE. SKILLED NURSE TO ESTABLISH SUPPORT MEASURES TO MINIMIZE RISK OF HOSPITALIZATION AND ED USE, AND INSTRUCT PATIENT/CAREGIVER ON METHODS TO REDUCE AVOIDABLE HOSPITALIZATION AND ED USE. [code = PATIENT HAS A RISK OF HOSPITALIZATION AND ED USE. SKILLED NURSE TO ESTABLISH SUPPORT MEASURES TO MINIMIZE RISK OF HOSPITALIZATION AND ED USE, AND INSTRUCT PATIENT/CAREGIVER ON METHODS TO REDUCE AVOIDABLE HOSPITALIZATION AND ED USE.] Future Scheduled Test SKILLED NU RSE TO PROVIDE INSTRUCTION TO PATIENT/CAREGIVER RELATED TO DISCHARGE PLANNING. [code = SKILLED NURSE TO PROVIDE INSTRUCTION TO PATIENT/CAREGIVER RELATED TO DISCHARGE PLANNING.] Future Scheduled Test SKILLED NU RSE TO O/A OF PATIENTS MENTAL/BEHAVIORAL STATUS, ASSESS VITAL SIGNS EACH VISIT ALLOW 2 PRNS FOR MEDICATION MANAGEMENT. [code = SKILLED NURSE TO O/A OF PATIENTS MENTAL/BEHAVIORAL STATUS, ASSESS VITAL SIGNS EACH VISIT ALLOW 2 PRNS FOR MEDICATION MANAGEMENT.] Future Scheduled Test SKILLED NU RSE FOR O/A OF GENERAL HEALTH STATUS OF PAIN, CARDIAC, RESPIRATORY, GASTROINTESTINAL, GENITOURINARY, SKIN, NEUROLOGIC, ENDOCRINE SYSTEMS TO IDENTIFY CHANGES ASSOCIATED WITH EXACERBATION FOR EARLY INTERVENTION OF COMPLICATIONS EACH VISIT [code = SKILLED NURSE FOR O/A OF GENERAL HEALTH STATUS OF PAIN, CARDIAC, RESPIRATORY, GASTROINTESTINAL, GENITOURINARY, SKIN, NEUROLOGIC, ENDOCRINE SYSTEMS TO IDENTIFY CHANGES ASSOCIATED WITH EXACERBATION FOR EARLY INTERVENTION OF COMPLICATIONS EACH VISIT ] Future Scheduled Test SKILLED NU RSE TO REVIEW PATIENT MEDICATIONS. INSTRUCT PATIENT/CAREGIVER ON MONITORING OF EFFECTIVENESS, ADVERSE DRUG REACTIONS, SIDE EFFECTS OF ALL MEDICATIONS (PRESCRIPTION/-OTC), AND HOW AND WHEN TO REPORT PROBLEMS. [code = SKILLED NURSE TO REVIEW PATIENT MEDICATIONS. INSTRUCT PATIENT/CAREGIVER ON MONITORING OF EFFECTIVENESS, ADVERSE DRUG REACTIONS, SIDE EFFECTS OF ALL MEDICATIONS (PRESCRIPTION/-OTC), AND HOW AND WHEN TO REPORT PROBLEMS.] Future Scheduled Test SKILLED NU RSE FOR O/A AND SKILLED TEACHING RELATED TO MANAGEMENT OF DEPRESSIVE SYMPTOMS AND/OR DEPRESSION. SN TO REPORT SIGNIFICANT CHANGE IN DEPRESSIVE SYMPTOMS TO CLINICAL PROVIDER FOR EARLY INTERVENTION. [code = SKILLED NURSE FOR O/A AND SKILLED TEACHING RELATED TO MANAGEMENT OF DEPRESSIVE SYMPTOMS AND/OR DEPRESSION. SN TO REPORT SIGNIFICANT CHANGE IN DEPRESSIVE SYMPTOMS TO CLINICAL PROVIDER FOR EARLY INTERVENTION.] Future Scheduled Test SKILLED NU RSE FOR O/A OF PATIENT'S RISK FOR VIOLENCE (TOWARD SELF OR OTHERS) AND TO PROVIDE INTERVENTION TECHNIQUES TO PROMOTE SAFETY TO PATIENT AND OTHERS [code = SKILLED NURSE FOR O/A OF PATIENT'S RISK FOR VIOLENCE (TOWARD SELF OR OTHERS) AND TO PROVIDE INTERVENTION TECHNIQUES TO PROMOTE SAFETY TO PATIENT AND OTHERS] Future Scheduled Test SKILLED NU RSE FOR O/A AND SKILLED TEACHING OF COPING SKILLS TO MANAGE ANXIETY AND MAINTAIN SAFETY. [code = SKILLED NURSE FOR O/A AND SKILLED TEACHING OF COPING SKILLS TO MANAGE ANXIETY AND MAINTAIN SAFETY.] Future Scheduled Test PHYSICAL T HERAPIST TO EVALUATE PATIENT FOR GAIT ENDURANCE SAFETY ADAPTIVE EQUIPMENT ... [code = PHYSICAL THERAPIST TO EVALUATE PATIENT FOR GAIT ENDURANCE SAFETY ADAPTIVE EQUIPMENT ...] Future Scheduled Test MEDICAL SO CIAL WORKER TO EVALUATE PATIENT FOR LONG-TERM PLANNING RELATED TO DIAGNOSIS OF TERMINAL CANCER ... [code = REPORTS ANALYST TO EVALUATE PATIENT FOR LONG-TERM PLANNING RELATED TO DIAGNOSIS OF TERMINAL CANCER ...] Goal Patient Goal - TO FEEL KARLY R Goal Provider Goal - A PLAN OF CARE WILL BE ESTABLISHED THAT MEETS PATIENT'S LONG TERM NEEDS AND INCLUDES PATIENT GOAL FOR HOME HEALTH. Goal Provider Goal - PATIENT WILL REMAIN SAFE IN THE COMMUNITY AND WILL BE FREE OF DANGER TO SELF AND OTHERS THROUGHOUT THE CERTIFICATION PERIOD. Goal Provider Goal - PATIENT/CAREGIVER WILL VERBALIZE/DEMONSTRATE EFFECTIVE HOME SAFETY AND FALL PREVENTION STRATEGIES THROUGHOUT CERTIFICATION PERIOD. Goal Provider Goal - PATIENT/CAREGIVER WILL DEMONSTRATE UNDERSTANDING OF PHARMACOLOGIC AND NONPHARMACOLOGIC PAIN CONTROL MEASURES AND PATIENT WILL HAVE IMPROVEMENT IN PAIN INTERFERING WITH ACTIVITY EVIDENCED BY PAIN CONTROLLED AT LEVEL THAT IS ACCEPTABLE TO THE PATIENT BY END OF CERTIFICATION PERIOD. Goal Provider Goal - PATIENT WILL HAVE SUPPORT MEASURES ESTABLISHED TO PREVENT HOSPITALIZATION AND ED USE AND PATIENT/CAREGIVER WILL VERBALIZE/DEMONSTRATE METHODS TO REDUCE AVOIDABLE HOSPITALIZATION AND ED USE BY END OF EPISODE. Goal Provider Goal - PATIENT/CAREGIVER WILL VERBALIZE UNDERSTANDING OF DISCHARGE PLANNING INSTRUCTIONS BY DATE OF DISCHARGE. Goal Provider Goal - ALTERED MENTAL/BEHAVIORAL STATUS WILL BE IDENTIFIED PROMPTLY AND INTERVENTION INITIATED QUICKLY TO MINIMIZE ASSOCIATED RISKS THROUGHOUT CERTIFICATION PERIOD. Goal Provider Goal - CHANGE IN GENERAL HEALTH STATUS WILL BE IDENTIFIED AND REPORTED TO PHYSICIAN FOR PROMPT INTERVENTION TO MINIMIZE ASSOCIATED RISKS THROUGHOUT CERTIFICATION PERIOD. Goal Provider Goal - PATIENT/CAREGIVER WILL VERBALIZE UNDERSTANDING OF EDUCATION PROVIDED ON MEDICATIONS BY THE END OF THE CERTIFICATION PERIOD. Goal Provider Goal - PATIENT WILL REMAIN SAFE WITHOUT DECOMPENSATION IN DEPRESSIVE CONDITION, WHILE MAINTAINING OPTIMAL LEVEL OF MENTAL HEALTH AND WELL BEING THROUGHOUT CERTIFICATION PERIOD. Goal Provider Goal - PATIENT WILL REMAIN SAFE IN COMMUNITY WITHOUT EVIDENCE OF INJURY/HARM TO SELF OR OTHERS THROUGHOUT CERTIFICATION PERIOD. Goal Provider Goal - PATIENT WILL BE ABLE TO PERFORM DAILY FUNCTIONS AND HAVE OPTIMAL IMPROVEMENT IN LEVEL OF ANXIETY THROUGHOUT CERTIFICATION PERIOD. Goal Provider Goal - A PHYSICAL THERAPY EVALUATION TO BE COMPLETED WITH RECOMMENDATIONS AND/OR WRITTEN PLAN OF TREATMENT ESTABLISHED FOR PHYSICIANS SIGNATURE. Goal Provider Goal - REPORTS ANALYST TO COMPLETE EVALUATION TO ADDRESS THE PATIENTS SOCIAL AND EMOTIONAL FACTORS AND/OR WRITTEN PLAN OF TREATMENT ESTABLISHED FOR THE PHYSICIAN'S SIGNATURE. Progress Notes Progress Notes <paragraph>[Visit Date: 2024 by LEAH MAYER RN]:</paragraph><paragraph>01-03-25 LONG TERM VISIT MADE TO ASSESS MENTAL HEALTH STATUS SAFETY MED COMPLIANCE CARDIOVASCULAR GI STATUS. PATIENT SAW PCP YESTERDAY AND HE ORDERED SENOKOT FOR CONSTIPATION. PATIENT STATES HE STILL HAS NOT MOVED HER BOWELS SINCE BEING DISCHARGED FROM THE HOSPITAL. BUT PATIENT HAS NOT REALLY BEEN EATING ANYTHING BUT SOUP. RN ENCOURAGED PATIENT TO EAT SMALL FREQUENT MEALS CONTINUE TO BE HYDRATED PATIENT HAS AN APPOINTMENT TOMORROW WITH MOLD SWABBER PATIENT STATES PAIN IN HIS ABDOMEN IS NOT BAD TODAY PATIENT ENCOURAGED NOT TO TAKE MEDICATIONS ON AN EMPTY STOMACH ...</paragraph> <paragraph>[Visit Date: 2024 by LEAH MAYER RN]:</paragraph><paragraph>01-01-25 LONG TERM VISIT MADE TO ASSESS MENTAL HEALTH STATUS AND SAFETY BED COMPLIANCE GI STATUS . PATIENT STATES HE TOOK HIS PILLS EARLY THIS MORNING AFTER HAVING A FEW BITES OF BAGEL AND HAS BEEN HAVING INTENSE ABDOMINAL PAIN WHICH FINALLY SUBSIDED THIS AFTERNOON. PATIENT CONTINUES TO COMPLAIN OF ABDOMINAL PAIN AFTER EATING ANY FOODS PATIENT TO SEE PCP TOMORROW AND GI MD ON TUESDAY PATIENT ENCOURAGED TO EAT SMALL FREQUENT MEALS EASY TO EAT FOODS PATIENT HAS PROTEIN SHAKES YOGURT. PATIENT COMPLAINTS OF WEAKNESS BECAUSE ALWAYS HAD IT WAS A FEW BITES OF BAGEL THIS MORNING. RN GAVE HIM 1 OF HIS PROTEIN SHAKES ENCOURAGED TO TRY TO GET PROTEIN IN EVERY DAY AND STAY HYDRATED WITH WATER PATIENT DOES TAKE IRON EVERY OTHER DAY WHICH MAY BE CAUSING SOME OF HIS ABDOMINAL UPSET</paragraph> Encounters Start Date/Time End Date/Time Encounter Type Admission Type Attending [facility] Care Facility Care Department Encounter ID Discharge Date Discharge Status Discharge Condition Discharge Reason Percent Goals Met 2024-12-29 00:00:00 2025-02-26 00:00:00 Outpatient NEW ADMISSION LEAH MAYER [facility] [id number]
--- NOTE | 2025-01-07 21:10 | ED_ITS ---
HPI - Abdominal Pain General Chief Complaint: Abdominal Pain Stated Complaint: Abd pain while eating Time Seen by Provider: 01/07/25 21:10 History of Present Illness ED Provider: HPI narrative: Patient's with history of metastatic colon cancer to liver, peritoneal carcinomatosis with chronic abdominal pain failed chemo therapy, paroxysmal AFib depression, hypotension, hyperlipidemia been here multiple times for chronic abdominal pain was seen here last on 01/05 CT abdomen showed metastatic colon cancer patient has this pain for several months not taking any pain medication no nausea no vomiting at this time patient does have visiting nurse and followed by oncologist and fire observer last chemotherapy was a month ago Related Data Home Medications ?Medication ?Instructions ?Recorded ?Confirmed brimonidine 0.2 %-timolol 0.5 % 1 drp ophthalmic (eye) BID 12/19/24 01/09/25 eye drops docusate sodium 100 mg capsule 100 mg PO BID 12/19/24 01/09/25 enoxaparin 100 mg/mL subcutaneous 90 mg subcut Q12H 12/19/24 01/09/25 syringe ferrous gluconate 324 mg (38 mg 324 mg PO Q48H 12/19/24 01/09/25 iron) tablet hydrocortisone 2.5 % topical cream 1 appl NJ BID 12/19/24 01/09/25 with perineal applicator (Procto-Med HC) lisinopril 5 mg tablet 5 mg PO DAILY 12/19/24 01/09/25 loteprednol etabonate 0.5 % eye See Rx Instructions .Route .COMPLEX 12/19/24 01/09/25 ointment (Lotemax) metoprolol tartrate 25 mg tablet 25 mg PO BID 12/19/24 01/09/25 pantoprazole 40 mg tablet,delayed 40 mg PO DAILY@0630 12/19/24 01/09/25 release polyethylene glycol 3350 17 gram 17 g PO DAILY 12/19/24 01/09/25 oral powder packet (Miralax) prochlorperazine maleate 5 mg 5 - 10 mg PO Q6H PRN Nausea 12/19/24 01/09/25 tablet (Compazine) trifluridine 15 mg-tipiracil 6.14 1 tab PO BID 12/19/24 01/09/25 mg tablet (Lonsurf) hypochlorus acid 0.02 %-sod 1 spray topical DAILY 01/08/25 01/09/25 hypochl-sod chl-elec. water topical spray (Ocusoft HypoChlor Solution) sennosides 8.6 mg tablet (senna) 8.6 mg PO BID 01/08/25 01/09/25 Previous Rx's ?Medication ?Instructions ?Recorded atorvastatin 20 mg tablet 20 mg PO DAILY 30 days #30 tabs 12/28/24 lactulose 10 gram/15 mL oral 10 g (15 mL) PO DAILY 30 days #450 12/28/24 solution mL mirtazapine 15 mg tablet 15 mg PO BEDTIME 30 days #30 tabs 12/28/24 trazodone 50 mg tablet 50 mg PO BEDTIME PRN Insomnia 30 12/28/24 days #30 tabs Allergies Allergy/AdvReac Type Severity Reaction Status Date / Time No Known Allergies Allergy Verified 01/07/25 20:58 Review of Systems Review of Systems Yes all other systems are reviewed and are negative [facility] Past Medical History Medical History Suicide attempt Hypertension CVA (cerebral vascular accident) Social History Social History Household Members: None Housing: Condominium Do you presently have visiting nurse or other home services: No Patient Tobacco Use Status: Former Tobacco user Tobacco use type: Cigarette Substance Use Type: Marijuana Advance Directives Date on File: 12/31/24 service: No Sexual orientation: Straight/Heterosexual Physical Exam ED Vital Signs: Vital Signs - 24 hr 01/10/25 16:12 01/10/25 20:00 01/10/25 20:21 Temperature 98.7 F Pulse Rate 82 92 92 Respiratory Rate 16 16 Blood Pressure 134/71 139/73 139/73 Pulse Oximetry 100 97 Oxygen Delivery Method Room Air Room Air 01/11/25 06:23 Temperature 97.7 F Pulse Rate 74 Respiratory Rate 14 Blood Pressure 117/67 Pulse Oximetry 98 Oxygen Delivery Method Room Air BMI result Body Mass Index 26.5 Appearance: Alert. Oriented X3. No acute distress. Eyes: No pallor or icterus ENT: Pharynx normal. Oral Mucosa moist Neck: Normal inspection. Neck supple. CVS: Normal heart rate and rhythm. Pulses normal. Respiratory: No respiratory distress. Equal air entry bilateral, no wheezing/rales/rhonchi Abdomen: Soft and diffuse tenderness no rebound tenderness or guarding Bowel sounds are present, no mass palpable, no CVA tenderness Skin: Skin warm and dry. Normal skin color. Normal skin turgor. Extremities: No lower extremity edema. No calf tenderness Neuro: Oriented X 3. No motor deficit. No sensory deficit.No cerebellar signs , cranial nerves II-XII intact Course Course Course Narrative: 01/10/2025 0941 Leonie Irving PA-C: Observation continues. Case management continues to follow. L 01/11/2025 0800 Leonie Irving PA-C Observation care revealed the the patient does not meet medical necessity for hospitalization. Final disposition discussed with the patient and the patient's son/HCP Cornel who verbalized understanding and agreement with going back to [facility]. Patient completed observation care at 0800 on 01/11/2025, total time spent in observation care was 3 days, 1 hours, and 2 minutes. Reevaluation(s) Reevaluation #1: Physician observation continued, no overnight events reported by nursing. Notified by RN today that while speaking to his son on the phone patient was making suicidal statements. Patient has recent hospitalization for suicide attempt. Told family he wants to fast. Case discussed with Janet from who feels CARE team consult is appropriate. Time: 13:37 Reevaluation #2: Time: 12:58 Date: 01/09/25 Provider: ABI Ayoub Patient in physician observation for case management needs. No acute events reported overnight.? No current issues or complaints. VS stable. Patient is pending case management disposition, and psychiatric consultation. We will continue to monitor. Reevaluation #3: Time: 19:03 Date: 01/10/25 Provider: Areli Melo CNP Patient in physician observation for case management needs, patient has agreed to go into hospice level of care, with plan for discharge tomorrow today but [place] for hospice at that time. Patient's son and healthcare proxy has been made aware as well. Patient requesting additional analgesia aside from acetaminophen at this time, I have placed orders for morphine sulfate q.4 hours PRN Medical Decision Making Medical Decision Making MDM Narrative: Patient with metastatic colon cancer with peritoneal carcinomatosis with chronic pain failed chemotherapy asking for supportive treatment/hospice care for pain management will get case management involved patient lives alone requesting to stay overnight for hospice to help him out in a.m. I discussed patient's case with case management and with patient. Patient does not want a transfusion at this wants to be under hospice care. In no distress. Case management was made aware of this. Will try to arrange for patient to go to hospice. Pain is controlled. Currently in stable condition. Lab Data MDM Lab Attestation statement: I reviewed the patient's lab results. 01/10/25 06:09 01/07/25 21:07 Labs: Lab Results 01/07/25 01/09/25 01/10/25 Range/Units 21:07 15:40 06:09 WBC 8.8 8.9 8.7 (4.8-10.8) X10*3/uL RBC 2.83 L 2.74 L 2.68 L (4.60-5.80) X10*6/uL Hgb 7.5 L 7.1 L 6.9 L* (14.0-18.0) g/dl Hct 23.1 L 22.4 L 21.9 L (42.0-52.0) % MCV 81.6 81.8 81.7 (80.0-98.0) fL MCH 26.5 L 25.9 L 25.7 L (27.0-33.0) pg MCHC 32.5 31.7 31.5 (31.0-36.0) g/dl RDW 16.0 16.1 H 15.9 (11.0-16.0) % Plt Count 160 175 142 L (160-400) X10*3/uL MPV 9.3 L 10.1 9.1 L (9.4-12.4) fL Immature Gran % (Auto) 2.3 H (0.0-0.4) % Neut % (Auto) 74.6 H (45-73) % Lymph % (Auto) 12.1 L (20-40) % Crockett % (Auto) 10.3 (2-11) % Eos % (Auto) 0.6 (0-4) % Baso % (Auto) 0.1 (0-2) % Lymph # (Auto) 1.1 L (1.2-4.9) X10*3/uL Crockett # (Auto) 0.9 (0.1-1.2) X10*3/uL Eos # (Auto) 0.1 (0.0-0.4) X10*3/uL Baso # (Auto) 0.0 (0.0-0.2) X10*3/uL Abs Immat Gran (auto) 0.20 H (0.00-0.03) X10*3/uL Absolute Neuts (auto) 6.5 (2.0-8.3) x10*3/uL Absolute Nucleated RBC 0.000 0.000 0.020 H (0.0-0.012) X10*3/uL Nucleated RBC % (auto) 0.0 0.0 0.2 (0.0-0.2) /100WBC Smear Path Review SEE NOTE PT 12.5 H (10.9-12.4) SEC INR 1.1 (0.9-1.1) APTT 29.0 (26.0-36.8) SEC Sodium 131 L (135-145) mmol/L Potassium 4.1 (3.3-5.1) mmol/L Chloride 97 (96-108) mmol/L Carbon Dioxide 20 L (22-29) mmol/L Anion Gap 18 (12-20) BUN 19 H (9-16) mg/dL Creatinine 0.67 (0.5-1.4) mg/dL Estim Creat Clear Calc 89.2 Estimated GFR > 60 Random Glucose 89 (60-115) mg/dL Calcium 8.5 (8.4-10.2) mg/dL Total Bilirubin 0.5 (0.0-1.0) mg/dL AST 32 (5-37) U/L ALT 6 (0-40) U/L Alkaline Phosphatase 92 (39-117) U/L Total Protein 6.5 (6.5-8.0) g/dL Albumin 3.8 (3.5-5.0) g/dL Lipase 17 (8-78) U/L Medications Administered Generic Name Dose Route Start Last Admin Trade Name Freq PRN Reason Stop Dose Admin Acetaminophen 650 mg 01/09/25 17:33 01/11/25 06:22 Acetaminophen 325 Mg Tablet PO 650 mg Q8H PRN Administration moderate pain Atorvastatin Calcium 20 mg 01/10/25 09:00 01/10/25 08:05 Atorvastatin Calcium 20 Mg Tablet PO 20 mg DAILY MAGGY Administration Brimonidine Tartrate 1 drop 01/09/25 21:00 01/10/25 22:32 Brimonidine Tartrate 0.2% Oph 5 Ml Bottle EYE-BOTH 1 drop BID MAGGY Administration Docusate Sodium 100 mg 01/09/25 21:00 01/10/25 21:04 Docusate Sodium 100 Mg Capsule PO Not Given BID [facility] Enoxaparin Sodium 90 mg 01/10/25 16:00 01/11/25 04:42 Enoxaparin Sodium 100 Mg/Ml Syringe SUBCUT Not Given Q12H [facility] Ferrous Sulfate 324 mg 01/09/25 13:15 01/09/25 15:22 Ferrous Sulfate 324 Mg Tablet. PO 324 mg Q48H MAGGY Administration Hydrocortisone 1 appl 01/09/25 21:00 01/10/25 21:03 Hydrocortisone 2.5 % Rectal Cr 30 Gm Tube NJ Not Given BID MAGGY Lactulose 10 gm 01/10/25 09:00 01/10/25 08:04 Lactulose 20 Gm/30 Ml Solution PO 10 gm DAILY MAGGY Administration Lisinopril 5 mg 01/10/25 09:00 01/10/25 08:05 Lisinopril 5 Mg Tablet PO 5 mg DAILY MAGGY Administration Protocol Metoprolol Tartrate 25 mg 01/09/25 21:00 01/10/25 20:21 Metoprolol Tartrate 25 Mg Tablet PO 25 mg BID MAGGY Administration Protocol Mirtazapine 15 mg 01/09/25 21:00 01/10/25 20:21 Mirtazapine 15 Mg Tablet PO 15 mg BEDTIME MAGGY Administration Morphine Sulfate 2.5 mg 01/10/25 18:59 01/11/25 00:26 Morphine Sulfate Oral Stephanie 10 Mg/5 Ml Solution SUBLINGUAL 2.5 mg Q4H PRN Administration Pain, Moderate(Pain Scale 4-6) Omeprazole 20 mg 01/10/25 06:30 01/11/25 06:21 Omeprazole 20 Mg Capsule. PO 20 mg DAILY@0630 MAGGY Administration Polyethylene Glycol 17 gm 01/10/25 09:00 01/10/25 08:06 Polyethylene Glycol 3350 17 Gm Powd.Pack PO 17 gm DAILY MAGGY Administration Senna 8.6 mg 01/09/25 21:00 01/10/25 21:04 Sennosides 8.6 Mg Tablet PO Not Given BID MAGGY Timolol Maleate 1 drop 01/09/25 21:00 01/10/25 22:32 Timolol Maleate 0.5 % Oph Stephanie 5 Ml Drbtl EYE-BOTH 1 drop BID MAGGY Administration Trazodone HCl 50 mg 01/09/25 12:38 01/10/25 20:21 Trazodone Hcl 50 Mg Tablet PO 50 mg BEDTIME PRN Administration Insomnia Discontinued Medications Generic Name Dose Route Start Last Admin Trade Name Freq PRN Reason Stop Dose Admin Acetaminophen 650 mg 01/08/25 20:10 01/08/25 20:15 Acetaminophen 325 Mg Tablet PO 01/08/25 20:11 650 mg ONCE ONE Administration Acetaminophen 650 mg 01/09/25 05:42 01/09/25 05:45 Acetaminophen 325 Mg Tablet PO 01/09/25 05:43 650 mg ONCE ONE Administration Enoxaparin Sodium 90 mg 01/09/25 12:45 01/10/25 03:46 Enoxaparin Sodium 100 Mg/Ml Syringe SUBCUT 90 mg Q12H MAGGY Administration Morphine Sulfate 15 mg 01/07/25 21:20 01/07/25 21:25 Morphine Sulfate Immed Release 15 Mg Tablet PO 01/07/25 21:21 15 mg ONCE ONE Administration Discharge Plan Discharge Clinical Impression: Metastatic colon cancer to liver, Peritoneal carcinomatosis, Abdominal pain, chronic, generalized Patient Disposition: [facility] Transfer Details: [facility] Prescriptions: No Action pantoprazole 40 mg tablet,delayed release (DR/EC) 40 mg PO DAILY@0630 docusate sodium 100 mg capsule 100 mg PO BID lisinopril 5 mg tablet 5 mg PO DAILY enoxaparin 100 mg/mL syringe 90 mg subcut Q12H metoprolol tartrate 25 mg tablet 25 mg PO BID brimonidine-timolol 0.2-0.5 % drops 1 drp ophthalmic (eye) BID Lotemax 0.5 % ointment See Rx Instructions .ROUTE .COMPLEX Rx Instructions: Apply 1 application to left eye BID x1 week, then apply daily x1 week, then stop. polyethylene glycol 3350 [Miralax] 17 gram Powder In Packet 17 g PO DAILY prochlorperazine maleate [Compazine] 5 mg Tablet 5 - 10 mg PO Q6H PRN (Reason: Nausea) hydrocortisone [Procto-Med HC] 2.5 % cream with perineal applicator 1 appl NJ BID Lonsurf 15-6.14 mg Tablet 1 tab PO BID Rx Instructions: must administer with food (with morning and evening meals); on Days 1 through 5 and Days 8 through 12 of 28-day cycle ferrous gluconate 324 mg (38 mg iron) Tablet 324 mg PO Q48H atorvastatin 20 mg Tablet 20 mg PO DAILY 30 Days Qty: 30 0RF trazodone 50 mg Tablet 50 mg PO BEDTIME PRN (Reason: Insomnia) 30 Days Qty: 30 0RF mirtazapine 15 mg Tablet 15 mg PO BEDTIME 30 Days Qty: 30 0RF lactulose 10 gram/15 mL Solution 10 g PO DAILY 30 Days Qty: 450 0RF Ocusoft HypoChlor Solution 0.02 % spray,non-aerosol 1 spray TOPICAL DAILY sennosides [senna] 8.6 mg tablet 8.6 mg PO BID Referrals: [facility] [Outside] Janene MADRID [Outside] ([facility] will admit patient to their agency once at [facility]. ) Print Language: Kyrgyz
[2025-01-07 21:11] LABS: MANUAL DIFF FLAG NO
[2025-01-07 21:12] LABS: Basophils Percent Auto 0.1 % (0-2); Eosinophils Absolute Auto 0.1 X10*3/uL (0.0-0.4); Eosinophils Percent Auto 0.6 % (0-4); Hematocrit 23.1 % (42.0-52.0); Hemoglobin 7.5 g/dl (14.0-18.0); Imm Gran Pct Auto 2.3 % (0.0-0.4); Lymphocytes Absolute Auto 1.1 X10*3/uL (1.2-4.9); Lymphocytes Percent Auto 12.1 % (20-40); Mean Corpuscular HGB Conc 32.5 g/dl (31.0-36.0); Mean Corpuscular Hemoglobin 26.5 pg (27.0-33.0); Mean Corpuscular Volume 81.6 fL (80.0-98.0); Mean Platelet Volume 9.3 fL (9.4-12.4); Monocytes Absolute Auto 0.9 X10*3/uL (0.1-1.2); Monocytes Percent Auto 10.3 % (2-11); Neutrophils Absolute Auto 6.5 x10*3/uL (2.0-8.3); Neutrophils Percent Auto 74.6 % (45-73); Platelet Count 160 X10*3/uL (160-400); Red Blood Count 2.83 X10*6/uL (4.60-5.80); White Blood Count 8.8 X10*3/uL (4.8-10.8)
[2025-01-07 21:15] VITALS: BP 155/77; PULSE 102; RESP 20; TEMP 37.1; O2SAT 97
[2025-01-07] MEDS: Morphine Sulfate Immed Release 15 MG TABLET PO (21:25)
[2025-01-07 21:26] LABS: Alanine Aminotransferase 6 U/L (0-40); Albumin Level 3.8 g/dL (3.5-5.0); Alkaline Phosphatase 92 U/L (39-117); Anion Gap 18 (12-20); Aspartate Amino Transferase 32 U/L (5-37); Bilirubin Total 0.5 mg/dL (0.0-1.0); Blood Urea Nitrogen 19 mg/dL (9-16); Calcium 8.5 mg/dL (8.4-10.2); Carbon Dioxide 20 mmol/L (22-29); Chloride 97 mmol/L (96-108); Creatinine Clr Calc Pharmacy 89.2; Estimated Glomerular Filt Rate > 60; Glucose Random 89 mg/dL (60-115); Lipase 17 U/L (8-78); Potassium 4.1 mmol/L (3.3-5.1); Sodium 131 mmol/L (135-145); Total Protein 6.5 g/dL (6.5-8.0)
[2025-01-07 21:55] VITALS: BP 122/67; PULSE 100; RESP 18; TEMP 37; O2SAT 94
--- NOTE | 2025-01-08 05:08 | PC.NURSE ---
Patient with metastatic colon cancer with peritoneal carcinomatosis with chronic pain failed chemotherapy asking for supportive treatment/hospice care for pain management will get case management involved patient lives alone requesting to stay overnight for hospice to help him out in a.m.
[2025-01-08 07:50] VITALS: BP 136/77; PULSE 89; RESP 20; TEMP 36.8; O2SAT 95
--- NOTE | 2025-01-08 08:49 | PC.NURSE ---
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 Patient alert and oriented with a depressed, flat affect. When questioned regarding his pain he stated it is the same as always. Lungs essentially clear bilat. Respirations even and non-labored. Abdomen firm, distended with positive bowel sounds. Positive pedal pulses with no edema. Plan PT/case management. Addendum entered by Shelia Yarbrough RN 01/08/25 09:19: He reports he has been going to ED at [facility] due to severe abdominal in context of liver/colon cancer. He reports he has been told he has one year left to live, which he has accepted but in the past 3 weeks he reports excruciating physical pain. He reports he has been referred to GI for further management outpatient. He reports the day of suicide attempt he was in a lot of pain (attempted to cut his wrists while in the bathtub) He reports slow motility, constipation with periods of cramping and loose stools. He reports nausea, then vomiting. He does say that he has accepted the fact that he will sooner rather than later due to his advanced cancer. He reports he is content with the life he lived and the work he did. He reports he does not want to be in physical pain. He reports he has not had abdominal pain today nor yesterday while in the ED. He is glad about this. He does report that if any help given to be medical focusing on managing the pain and keeping him comfortable. He reports he still want to continue chemotherapy. Original Note: PMH: Hypertension CVA (cerebral vascular accident)
--- NOTE | 2025-01-08 08:51 | PC.NURSE ---
PT at the bedside for an eval
--- NOTE | 2025-01-08 10:24 | PC.NURSE ---
Case management at the bedside. Patient requesting hospice and aware would have to discontinue chemo. Per case management, patient would have to self pay to transition to a hospice facility. Hospice notified to consult and will evaluate patients options.
--- NOTE | 2025-01-08 10:39 | MHC.CM.ED ---
Addendum entered by Janet Ventura 01/08/25 13:12: Kelly from [facility] on-site to complete hospice informational meeting. Patient declining informational meeting stating he wants [facility]. Referral made via [facility]. Original Note: Received case management consult from Dr Charles overnight. Patient came to the ER due to abd pain. Patient has a history of colon cancer with mets to the liver. Patient was inpatient [facility] from 12/20-12/28. Patient was d/c'd home with polly [facility] for [facility]. Met with patient in regards to discharge planning. Patient lives alone, ambulates independently and is active with [facility]. PCP verified. Copy of HCP verified to be on file. Patient states to T/W that he will not be going home because he will be on hospice. T/W explained hospice would not be able to admit patient if he was receiving chemo. Patient agreeable to stopping chemo. Patient is not a and does not have [facility]. T/W explained patient would need to privately pay for placement. Patient agreeable to informational meeting from [facility] at this time so that they can explain what hospice does and does not provide. Referral made in [facility]port. Continue to monitor for d/c needs.
--- NOTE | 2025-01-08 12:32 | PC.NURSE ---
Patient would like discuss the possibility of [facility] program. Case management notified.
--- NOTE | 2025-01-08 12:54 | PC.NURSE ---
Patient's son called for an update and is concerned that he will be discharged as he has been talking about suicide with his family. Provider notified and will order a psych consult.
--- NOTE | 2025-01-08 13:31 | PC.NURSE ---
Referral made to [facility].
[2025-01-08 14:00] VITALS: BP 137/67; PULSE 103; RESP 18; TEMP 37.1; O2SAT 94
--- NOTE | 2025-01-08 14:19 | MHC.CM.ED ---
[facility] is verifying insurance. Care Team Consult is pending at this time. Continue to monitor for d/c needs.
--- NOTE | 2025-01-08 15:18 | PC.NURSE ---
Care team evaluation performed.
[2025-01-08] MEDS: Acetaminophen 325 MG TABLET 650 MG PO (20:15)
--- NOTE | 2025-01-08 20:17 | PC.NURSE ---
Patient resting on stretcher w/ eyes closed. awakens easily to verbal stimuli. skin pale, warm, dry, resp even and non labored, speaking in full, clear sentences and able to make needs known. patient c/o 10/22 back pain- medicated w/ prn tylenol per OCT. patient denies abdominal pain or nausea at this time. patient asked about home medications in order to complete med rec- patient states those meds do not matter because he will be going on hospice- per CM note patient is awaiting insurance verification for palliative care. Patient denies SI or thoughts of hurting himself.
[2025-01-08 20:51] VITALS: BP 142/80; PULSE 97; RESP 16; TEMP 36.8; O2SAT 98
[2025-01-09] MEDS: Acetaminophen 325 MG TABLET 650 MG PO ×2 (05:45→17:45)
[2025-01-09 05:46] VITALS: BP 152/77; PULSE 95; RESP 18; TEMP 36.6; O2SAT 96
--- NOTE | 2025-01-09 05:51 | PC.NURSE ---
Pt resting quietly. Callbell in place and encouraged use.
[2025-01-09 08:00] VITALS: BP 139/76; PULSE 94; RESP 16; TEMP 36.6; O2SAT 96
--- NOTE | 2025-01-09 09:00 | MHC.CM.ED ---
Addendum entered by Janet Ventura 01/09/25 14:36: Received notification from [facility] that they will not be able to accept patient because he does not have anyone to care for him at home. Addendum entered by Janet Ventura 01/09/25 14:03: Patient's son, Cornel, updated on plan of psych consult via telephone at [phone]. Original Note: Patient remains in ER. Psych consult pending. Continue to monitor for d/c needs.
--- NOTE | 2025-01-09 09:27 | PHA.MEDREC ---
Addendum entered by Fidel Mendoza PharmD 01/09/25 09:49: reviewed Original Note: Pharmacy Consult ? Medication Reconciliation Pharmacy has completed the medication reconciliation. Spoke to patient to confirm med list. Patient states his medications no longer matter because he will be going into hospice care. When asked how long he has been off his medications, He states 2-3 days. Utilized claims and discharge packet from 12/28/24 to confirm med list.
[2025-01-09 11:12] VITALS: BP 152/77; PULSE 98; RESP 14; TEMP 36.7; O2SAT 97
[2025-01-09] MEDS: Ferrous Sulfate 324 MG TABLET.DR PO (15:22)
[2025-01-09 15:53] LABS: INTERNATIONAL NORM RATIO 1.1 (0.9-1.1); Prothrombin Time 12.5 SEC (10.9-12.4)
[2025-01-09 15:57] LABS: Hematocrit 22.4 % (42.0-52.0); Hemoglobin 7.1 g/dl (14.0-18.0); Mean Corpuscular HGB Conc 31.7 g/dl (31.0-36.0); Mean Corpuscular Hemoglobin 25.9 pg (27.0-33.0); Mean Corpuscular Volume 81.8 fL (80.0-98.0); Mean Platelet Volume 10.1 fL (9.4-12.4); Platelet Count 175 X10*3/uL (160-400); Red Blood Count 2.74 X10*6/uL (4.60-5.80); Red Cell Distribution Width 16.1 % (11.0-16.0); White Blood Count 8.9 X10*3/uL (4.8-10.8)
--- NOTE | 2025-01-09 16:30 | PM.PSYCN ---
History of Present Illness Date of Service: 01/09/2025 Chief Complaint: Abd pain while eating Sources of Information: patient interviewed, chart reviewed and crisis/core team assessment reviewed HPI Narrative: Mr. 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 His cancer has progressed and treatment has been palliative. Pt has experienced increased abdominal pain along with difficulty eating. He was recently admitted to psych unit after suicide attempt, when he cut his wrists and then called 911. He was discharged on 12/28/2024. Pt was brought to ED again after continued abdominal pain and difficulty eating. He had also told his son and visiting nurses that he wanted to stop eating to . Pt seen in the ED. He presents as calm. 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 He reports he has come to terms with idea that his cancer is terminal and he does not want the physical suffering. He reports he has decided to stop chemotherapy at this point and that his wish is to focus on comfort care. He reports he would like to do hospice. He initially had reported he did not have the funds to pay for SNF while he receives hospice care but now reports he does have them and would use them. No psychosis or delusions. Pt able to show understanding of his medical condition and appreciation of risks versus benefits of accepting or rejecting treatment. Past Psychiatric History: Inpt: S1 OP: none Suicide attempt via cutting wrist on 12/2024. [facility] Medical History Suicide attempt Hypertension CVA (cerebral vascular accident) Diagnostics Vital Signs (24Hr): Vital Signs - 24 hr 01/08/25 20:51 01/09/25 05:46 01/09/25 08:00 Temperature 98.2 F 97.8 F 97.8 F Pulse Rate 97 95 94 Respiratory Rate 16 18 16 Blood Pressure 142/80 H 152/77 H 139/76 Pulse Oximetry 98 96 96 Oxygen Delivery Method Room Air Room Air Room Air 01/09/25 11:12 Temperature 98.0 F Pulse Rate 98 Respiratory Rate 14 Blood Pressure 152/77 H Pulse Oximetry 97 Oxygen Delivery Method Room Air BMI result Body Mass Index 26.5 Labs 01/10/25 06:09 01/07/25 21:07 Labs: Laboratory Results - last 48 hr 01/07/25 01/09/25 21:07 15:40 WBC 8.8 8.9 RBC 2.83 L 2.74 L Hgb 7.5 L 7.1 L Hct 23.1 L 22.4 L MCV 81.6 81.8 MCH 26.5 L 25.9 L MCHC 32.5 31.7 RDW 16.0 16.1 H Plt Count 160 175 MPV 9.3 L 10.1 Immature Gran % (Auto) 2.3 H Neut % (Auto) 74.6 H Lymph % (Auto) 12.1 L Dickey % (Auto) 10.3 Eos % (Auto) 0.6 Baso % (Auto) 0.1 Lymph # (Auto) 1.1 L Dickey # (Auto) 0.9 Eos # (Auto) 0.1 Baso # (Auto) 0.0 Abs Immat Gran (auto) 0.20 H Absolute Neuts (auto) 6.5 Absolute Nucleated RBC 0.000 0.000 Nucleated RBC % (auto) 0.0 0.0 PT 12.5 H INR 1.1 APTT 29.0 Sodium 131 L Potassium 4.1 Chloride 97 Carbon Dioxide 20 L Anion Gap 18 BUN 19 H Creatinine 0.67 Estim Creat Clear Calc 89.2 Estimated GFR > 60 Random Glucose 89 Calcium 8.5 Total Bilirubin 0.5 AST 32 ALT 6 Alkaline Phosphatase 92 Total Protein 6.5 Albumin 3.8 Lipase 17 Mental Status Exam Mental Status Exam Narrative: Appearance: wearing hospital gown, fair hygiene in NAD Behavior: cooperative, friendly PSychomotor: no agitation or retardation noted Speech: clear, normal rate/rhythm/volume, spontaneous TP: linear TC: not wanting to be in excruciating pain, feeling better Mood: calm Affect: flexible, full range, normo-intense, non-labile SI: none HI: none VH/AH: none Delusions: none Insight/judgment: intact x 2. memory/cog: alert, oriented x 4. grossly intact to conversational testing but not formally tested. Medications Medications Current Medications Atorvastatin Calcium (Atorvastatin Calcium 20 Mg Tablet) 20 mg PO DAILY [facility] Brimonidine Tartrate (Brimonidine Tartrate 0.2% Oph 5 Ml Bottle) 1 drop EYE-BOTH BID [facility] Docusate Sodium (Docusate Sodium 100 Mg Capsule) 100 mg PO BID [facility] Enoxaparin Sodium (Enoxaparin Sodium 100 Mg/Ml Syringe) 90 mg SUBCUT Q12H [facility] Last Admin: 01/09/25 15:03 Dose: Not Given Ferrous Sulfate (Ferrous Sulfate 324 Mg Tablet.) 324 mg PO Q48H [facility] Last Admin: 01/09/25 15:22 Dose: 324 mg Hydrocortisone (Hydrocortisone 2.5 % Rectal Cr 30 Gm Tube) 1 appl DE BID [facility] Lactulose (Lactulose 20 Gm/30 Ml Solution) 10 gm PO DAILY [facility] Lisinopril (Lisinopril 5 Mg Tablet) 5 mg PO DAILY [facility]; Protocol Metoprolol Tartrate (Metoprolol Tartrate 25 Mg Tablet) 25 mg PO BID [facility]; Protocol Mirtazapine (Mirtazapine 15 Mg Tablet) 15 mg PO BEDTIME [facility] Non-Formulary Medication (Loteprednol Etabonate [Lotemax]) 0 appl .ROUTE .COMPLEX [facility] Non-Formulary Medication (Trifluridine-Tipiracil [Lonsurf]) 1 tab PO BID [facility] Omeprazole (Omeprazole 20 Mg Capsule.) 20 mg PO DAILY@0630 [facility] Polyethylene Glycol (Polyethylene Glycol 3350 17 Gm Powd.Pack) 17 gm PO DAILY [facility] Senna (Sennosides 8.6 Mg Tablet) 8.6 mg PO BID [facility] Timolol Maleate (Timolol Maleate 0.5 % Oph Stephanie 5 Ml Drbtl) 1 drop EYE-BOTH BID [facility] Trazodone HCl (Trazodone Hcl 50 Mg Tablet) 50 mg PO BEDTIME PRN PRN Reason: Insomnia Allergies Allergies Allergy/AdvReac Type Severity Reaction Status Date / Time No Known Allergies Allergy Verified 01/07/25 20:58 Assessment & Plan Assessment & Plan (1) Acute reaction to situational stress: Status: Acute Code(s): F43.0 - Acute stress reaction Plan Mr. 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 He has been experienced increased abdominal pain and difficulty eating. He has accepted the fact that his illness is terminal and chemo did not prevent the progression. He reports he does not want to be in physical pain and suffering. He does not wish to continue chemotherapy and expresses wish to change goals of care for focus on comfort. He is candidate for hospice. He would have to go to SNF with hospice which he is in agreement. I do not see any benefit of a psychiatric admission. He shows capacity to make medical decisions and fully understands risks versus benefits of accepting or rejecting treatment. Advice medical team to discuss goals of care with emphasis on comfort. PLAN 1. No need for inpatient psychiatric admission 2. referral to SNF with hospice services. 3. may add low dose ativan 0.5mg po TID prn anxiety,monitor oversedation. continue remeron for now. Total time managing care of this patient today ____ minutes.
[2025-01-09 18:11] VITALS: BP 145/83; PULSE 104; RESP 16; TEMP 36.5; O2SAT 97
--- NOTE | 2025-01-09 18:46 | PC.NURSE ---
Patient has been refusing meals today, drinking only small amount of water, provider notified
[2025-01-09 21:23] VITALS: BP 142/82; PULSE 103; RESP 16; TEMP 36.2; O2SAT 98
[2025-01-09] MEDS: Mirtazapine 15 MG TABLET PO (21:27)
[2025-01-09] MEDS: Docusate Sodium 100 MG CAPSULE PO (21:27)
[2025-01-09] MEDS: Sennosides 8.6 MG TABLET PO (21:27)
[2025-01-09] MEDS: Metoprolol Tartrate 25 MG TABLET PO (21:27)
[2025-01-09] MEDS: traZODone HCL 50 MG TABLET PO (21:27)
[2025-01-09] MEDS: timoloL maleate 0.5 % Oph Sol 5 ML DRBTL 1 DROP EYE-BOTH (21:28)
[2025-01-09] MEDS: Brimonidine Tartrate 0.2% Oph 5 ML BOTTLE 1 DROP EYE-BOTH (21:28)
[2025-01-10] VITALS (7 sets, daily range): BP systolic 134–147; BP diastolic 71–81; PULSE 82–92; RESP 16; TEMP 36.4–37.1; O2SAT 97–100
[2025-01-10] MEDS: Enoxaparin Sodium 100 MG/ML SYRINGE 90 MG SUBCUT ×2 (03:46→15:56)
[2025-01-10] MEDS: Acetaminophen 325 MG TABLET 650 MG PO ×3 (04:04→20:20)
--- NOTE | 2025-01-10 04:05 | PC.NURSE ---
assist with repositioning in bed, pt requested tylenol for pain, medicated per MAR
--- NOTE | 2025-01-10 05:51 | PC.NURSE ---
assumed care of pt at this time. pt brought into ED room 15 from overflow, report received from tigre CONNOLLY
[2025-01-10 06:26] LABS: Hematocrit 21.9 % (42.0-52.0); Mean Corpuscular HGB Conc 31.5 g/dl (31.0-36.0); Mean Corpuscular Hemoglobin 25.7 pg (27.0-33.0); Mean Corpuscular Volume 81.7 fL (80.0-98.0); Mean Platelet Volume 9.1 fL (9.4-12.4); NRBC Pct Auto 0.2 /100WBC (0.0-0.2); Platelet Count 142 X10*3/uL (160-400); Red Blood Count 2.68 X10*6/uL (4.60-5.80); Red Cell Distribution Width 15.9 % (11.0-16.0); White Blood Count 8.7 X10*3/uL (4.8-10.8)
[2025-01-10 06:30] LABS: Hemoglobin 6.9 g/dl (14.0-18.0)
[2025-01-10] MEDS: Sennosides 8.6 MG TABLET PO (08:02)
[2025-01-10] MEDS: Lactulose 20 GM/30 ML SOLUTION 10 GM PO (08:04)
[2025-01-10] MEDS: Omeprazole 20 MG CAPSULE.DR PO (08:05)
[2025-01-10] MEDS: lisinopriL 5 MG TABLET PO (08:05)
[2025-01-10] MEDS: Atorvastatin Calcium 20 MG TABLET PO (08:05)
[2025-01-10] MEDS: Metoprolol Tartrate 25 MG TABLET PO ×2 (08:05→20:21)
[2025-01-10] MEDS: Docusate Sodium 100 MG CAPSULE PO (08:05)
[2025-01-10] MEDS: polyethylene glycoL 3350 17 GM POWD.PACK PO (08:06)
[2025-01-10] MEDS: Brimonidine Tartrate 0.2% Oph 5 ML BOTTLE 1 DROP EYE-BOTH ×2 (08:11→22:32)
[2025-01-10] MEDS: timoloL maleate 0.5 % Oph Sol 5 ML DRBTL 1 DROP EYE-BOTH ×2 (08:11→22:32)
--- NOTE | 2025-01-10 09:15 | PC.NURSE ---
Pt A&O X4 VSS. Pt met with provider and discussed wishes for hospice care- Pt refuses diet tray and states It hurts too much when I eat. Pt denies pain otherwise and discussed needing no other pain meds at t his time. Pt in NAD positioned for comfort.
--- NOTE | 2025-01-10 09:50 | MHC.CM.ED ---
Addendum entered by Jnaet Ventura 01/10/25 11:52: [facility], [facility], [facility], and [facility] are able to offer a bed. These options were discussed with patient. Patient accepts bed at [facility]. Patient agreeable to T/W speaking to patient's son, Cornel. Spoke with Cornel via telephone at [phone]. Cornel aware and agreeable. [facility] made aware and will reach out to Cornel. Original Note: Patient remains in ER. Per Trudy, wastewater treatment plant operator, patient is now agreeable to privately pay for hospice at a SNF. Referral broadcasted in [facility] at this time. Bed offers will be discussed with patient. Continue to monitor for d/c needs.
--- NOTE | 2025-01-10 15:45 | MHC.CM.ED ---
Patient will d/c to [facility] via BLS tomorrow at 11am as long as [facility] PASRR Level 2 is obtained. Already submitted by T/W. Afsaneh JOHNS booked. [facility] with chart. Attempted to notify patient. Patient currently sleeping. Patient's son/HCP Stacy Unger RN and DR Peace aware. [facility] will meet patient at [facility] and will admit to hospice at that time. Continue to monitor for d/c needs.
--- NOTE | 2025-01-10 20:17 | MHC.EDTECH ---
Assisted pt oob to commode. Pt had loose dark stool. Pt cleaned and assisted back to bed. RN aware.
[2025-01-10] MEDS: traZODone HCL 50 MG TABLET PO (20:21)
[2025-01-10] MEDS: Mirtazapine 15 MG TABLET PO (20:21)
--- NOTE | 2025-01-10 23:06 | PC.NURSE ---
Pt resting comfortably on hospital bed. Pt previously assisted to commode with 2 people and had very small amount of liquid stool. Callbell in reach.
[2025-01-11] MEDS: Morphine Sulfate Oral Sol 10 MG/5 ML SOLUTION 2.5 MG SUBLINGUAL ×2 (00:26→12:17)
[2025-01-11] MEDS: Omeprazole 20 MG CAPSULE.DR PO (06:21)
[2025-01-11] MEDS: Acetaminophen 325 MG TABLET 650 MG PO (06:22)
[2025-01-11 06:23] VITALS: BP 117/67; PULSE 74; RESP 14; TEMP 36.5; O2SAT 98
[2025-01-11 08:51] VITALS: BP 138/67; PULSE 79; RESP 18; TEMP 36.4; O2SAT 98
[2025-01-11] MEDS: Sennosides 8.6 MG TABLET PO (09:56)
[2025-01-11] MEDS: Docusate Sodium 100 MG CAPSULE PO (09:57)
[2025-01-11] MEDS: Atorvastatin Calcium 20 MG TABLET PO (09:57)
[2025-01-11] MEDS: Metoprolol Tartrate 25 MG TABLET PO (09:57)
[2025-01-11] MEDS: polyethylene glycoL 3350 17 GM POWD.PACK PO (09:57)
[2025-01-11] MEDS: lisinopriL 5 MG TABLET PO (09:58)
[2025-01-11] MEDS: Lactulose 20 GM/30 ML SOLUTION 10 GM PO (10:04)
[2025-01-11] MEDS: timoloL maleate 0.5 % Oph Sol 5 ML DRBTL 1 DROP EYE-BOTH (10:12)
[2025-01-11] MEDS: Brimonidine Tartrate 0.2% Oph 5 ML BOTTLE 1 DROP EYE-BOTH (10:13)
[2025-01-11 12:48] VITALS: BP 138/67; PULSE 79; RESP 18; TEMP 36.4; O2SAT 98
== END 2025-01-11 12:35 | disposition skilled nursing facility (03) ==
PROVIDERS: Physician Assistant Medical; Emergency Provider Internal Medicine; PCP Internal Medicine Nephrology
DX: C18.9 Malignant neoplasm of colon, unspecified (principal); C78.7 Secondary malignant neoplasm of liver and intrahepatic bile duct; C48.2 Malignant neoplasm of peritoneum, unspecified; G89.29 Other chronic pain; R10.84 Generalized abdominal pain; I10 Essential (primary) hypertension; E78.5 Hyperlipidemia, unspecified; I48.0 Paroxysmal atrial fibrillation; Z86.73 Personal history of transient ischemic attack (TIA), and cerebral infarction without residual deficits; Z91.51 Personal history of suicidal behavior; Z87.891 Personal history of nicotine dependence; Z79.01 Long term (current) use of anticoagulants; Z79.899 Other long term (current) drug therapy; Z79.02 Long term (current) use of antithrombotics/antiplatelets
CPT/HCPCS: 36415; 80053; 83690; 85025; 85027; 85610; 85730; 96372; 99285; J1650; S9485

== ENCOUNTER → 2025-01-07 21:01 | Outpatient (BNV) | payer BC, SELFPAY | PROVIDERS: Emergency Provider Internal Medicine; PCP Internal Medicine Nephrology; Visit Provider Social Worker | DX: F43.0 Acute stress reaction (principal) | CPT/HCPCS: 99285 ==